=== PATIENT | female | born 1970 | race Caucasian/White ===

== ENCOUNTER → 2017-06-16 | Outpatient (CLI) | payer BC ==
[~2017-06-16] MED LIST: CIPR-225 PO; PHEN-826; THYROID; TRIM100T
--- NOTE | 2017-06-16 13:07 | Diagnostic Imaging Report ---
INDICATION: Routine screening. COMPARISON: 03/21/2016 and 03/20/2015. TECHNIQUE: Screening digital mammography was performed bilaterally with a Computer Aided Detection (CAD) system. FINDINGS: Moderate parenchymal density is identified bilaterally. Small intramammary lymph nodes are identified bilaterally. No spiculated mass or malignant-appearing microcalcifications are seen. The axillae are unremarkable. IMPRESSION: No mammographic features suspicious for malignancy are identified. ACR BI-RADS Category 2: Benign findings. Result letter will be mailed to the patient. Note: At least 10% of breast cancer is not imaged by mammography. Dictated by: Dictated on workstation # [id number]
== END ==
LOC: RAD 10:02
PROVIDERS: ATTEND Nurse Practitioner Family
DX: Z12.31 Encounter for screening mammogram for malignant neoplasm of breast (principal); E05.90 Thyrotoxicosis, unspecified without thyrotoxic crisis or storm
CPT/HCPCS: 77067

== ENCOUNTER 2017-07-21 16:00 | Outpatient (RCR) | payer BC | END 2017-07-31 11:25 | disposition home or self-care (01) | PROVIDERS: ATTEND Orthopaedic Surgery Foot and Ankle Surgery | DX: M21.41 Flat foot [pes planus] (acquired), right foot (principal); Z98.890 Other specified postprocedural states; M67.01 Short Achilles tendon (acquired), right ankle ==

== ENCOUNTER → 2018-07-17 | Outpatient (CLI) | payer BC ==
--- NOTE | 2018-07-17 12:53 | Diagnostic Imaging Report ---
INDICATION: Routine screening. Comparison is made with prior mammograms from 06/16/2017 and 03/21/2016. 2-D and 3-D bilateral screening mammography was performed with a Computer Aided Detection (CAD) system. FINDINGS: Scattered fibroglandular densities are identified bilaterally. Intraparenchymal lymph nodes appear stable bilaterally. No new mass or malignant-appearing microcalcifications are seen. The axillae are unremarkable. IMPRESSION: No mammographic features suspicious for malignancy are identified. ACR BI-RADS Category 2: Benign findings. Result letter will be mailed to the patient. Note: At least 10% of breast cancer is not imaged by mammography. Dictated by: Dictated on workstation # [id number]
== END ==
LOC: RAD 08:50
PROVIDERS: ATTEND Nurse Practitioner Family
DX: Z12.31 Encounter for screening mammogram for malignant neoplasm of breast (principal)
CPT/HCPCS: 77067

== ENCOUNTER → 2019-08-19 | Outpatient (CLI) | payer BC ==
--- NOTE | 2019-08-20 09:07 | Diagnostic Imaging Report ---
INDICATION: Routine screening. Comparison is made with prior mammogram from 07/17/2018 and 06/16/2017. 2-D and 3-D bilateral screening mammography was performed with CAD. Scattered fibroglandular densities are identified bilaterally. The parenchymal pattern is stable. Intraparenchymal lymph nodes in the outer aspects of both breasts appears stable. No new mass or malignant appearing microcalcifications are seen. Axillae are unremarkable. IMPRESSION: BI-RADS Category 2 No mammographic features suspicious for malignancy are identified. ACR BI-RADS Category 2: Benign findings. Result letter will be mailed to the patient. Note: At least 10% of breast cancer is not imaged by mammography. Dictated by: Dictated on workstation # [id number]
== END ==
LOC: RAD 14:20
PROVIDERS: ATTEND Nurse Practitioner Family
DX: Z12.31 Encounter for screening mammogram for malignant neoplasm of breast (principal)
CPT/HCPCS: 77063; 77067

== ENCOUNTER → 2019-09-13 | Outpatient (CLI) | payer BC | LOC: CARD 08:50 | PROVIDERS: ATTEND Internal Medicine Interventional Cardiology | DX: E78.49 Other hyperlipidemia (principal); R00.2 Palpitations; R06.02 Shortness of breath | CPT/HCPCS: 93306 ==

== ENCOUNTER → 2019-09-16 | Outpatient (CLI) | payer BC ==
[~2019-09-16] VITALS: Ht 170 cm; Wt 91.0 kg
[~2019-09-16] MED LIST changes: +CATHETER FLUSH 10 ML SYR IV PRN; +REGADENOSON 0.4 MG/5 ML SYR (LEXISCAN) IV ONE
[2019-09-23 15:03] VITALS: BP 138/90
--- NOTE | 2019-09-23 15:03 | Cardiology Stress Test Report ---
Stress Test Report Type of NM Stress Test: Test Type: LEXISCAN 0.4MG/5ML Date of Procedure/Referring: Date of Procedure: Sep 16, 2019 PCP Tong Perez MD Admitting Physician Ross Roberts DO Indications: Palpitations and shortness of breath. Baseline Heart Rate: 80 Baseline Blood Pressure: Blood Pressure Systolic: 138 Blood Pressure Diastolic: 90 Baseline EKG: Baseline EKG: sinus rhythm Summary & Conclusion: Summary: The patient was brought to the stress lab after informed consent was taken. Stress test was performed according to the Lexiscan protocol. 0.4 mg of IV Lexiscan was given. Low-grade exercise was performed. Baseline EKG showed sinus rhythm at 80 BPM, blood pressure 138/90 mmHg. Maximum heart rate of 86 bpm and blood pressure 142/93 mmHg. Patient did not have any chest pain, arrhythmias or ST segment changes during the stress test. 10.56 mCi of Myoview were given for rest imaging and 31.8 mCi of Myoview given for stress imaging. Transient ischemic dilatation score 1.05, EF 69 percent. Normal wall motion. Normal myocardial perfusion imaging during rest and stress. Conclusion: Pharmacological stress test was negative for ischemia. Normal LV function with no wall motion abnormalities. Normal myocardial perfusion imaging during rest and stress. Tong PEREZ MD Sep 23, 2019 15:03
== END ==
LOC: CARD 07:06
PROVIDERS: ATTEND Internal Medicine Interventional Cardiology
DX: E78.49 Other hyperlipidemia (principal); R06.02 Shortness of breath; R00.2 Palpitations
CPT/HCPCS: 78452; 93017; A9502

== ENCOUNTER 2019-10-26 05:43 | Outpatient (RCR) | payer BC ==
[~2019-10-26] VITALS: Ht 170.2 cm; Wt 90.8 kg
[~2019-10-26 05:43] MED LIST changes: -CATHETER FLUSH 10 ML SYR IV PRN; -REGADENOSON 0.4 MG/5 ML SYR (LEXISCAN) IV ONE
[2019-10-26] MEDS ORDERED: ROSU5TAB PO (12:30)
[2019-10-26] MEDS ORDERED: NF-VITD400 PO (12:36)
[2019-10-26] MEDS ORDERED: MAGN100T5 PO (12:36)
[2019-10-26] MEDS ORDERED: SELE200T11 PO (12:36)
[2019-10-26] MEDS ORDERED: [UNRECOGNIZED DRUG - OTHER] PO (12:37)
== END 2019-10-26 14:15 | disposition home or self-care (01) ==
LOC: PREOP 05:43
PROVIDERS: ATTEND Surgery
DX: Z01.812 Encounter for preprocedural laboratory examination (principal); Z20.828 Contact with and (suspected) exposure to other viral communicable diseases; Z12.11 Encounter for screening for malignant neoplasm of colon
CPT/HCPCS: 87635

== ENCOUNTER 2019-10-29 12:00 | Day surgery (SDC) | payer BC ==
[~2019-10-29] VITALS: Ht 170.2 cm; Wt 90.8 kg
[2019-10-29] VITALS (9 sets, daily range): BP systolic 118–134; BP diastolic 58–80
[~2019-10-29 12:00] MED LIST changes: +LACTATED RINGERS 1,000 ML IV ONE; +LACTATED RINGERS 1,000 ML IV STA; +LIDOCAINE JELLY 2% 6 ML SYRINGE MM PRN; +LORA10TA76 PO; +MAGN100T5 PO; +MIDAZOLAM 2 MG/2 ML (VERSED) VIAL ONE; +NF-VITD400 PO; +PROPOFOL INJECTION 50 ML IV ONE; +ROSU5TAB PO; +SELE200T11 PO; +[UNRECOGNIZED DRUG - OTHER] PO; +proPOfol 200 MG/20 ML (DIPRIVAN) VIAL IV ONE
--- NOTE | 2019-10-29 12:15 | Progress Note-Pre Operative ---
Pre-Operative Progress Note H&P Reviewed The H&P was reviewed, patient examined and no changes noted. Date Seen by Provider: Oct 29, 2019 Time Seen by Provider: 11:00 Date H&P Reviewed: Oct 29, 2019 Time H&P Reviewed: 11:00 Pre-Operative Diagnosis: screening colonoscopy KARLI SCHMITT MD Oct 29, 2019 12:15
--- NOTE | 2019-10-29 12:17 | Progress Note-Post Operative ---
Post-Operative Progess Note Surgeon (s)/Horologist (s) Surgeon KARLI SCHMITT MD Horologist: none Pre-Operative Diagnosis screening colonoscopy Post-Operative Diagnosis mild chronic stage 1 ext and int hemorrhoids. Procedure & Operative Findings Date of Procedure 10/29/19 Procedure Performed/Findings colonoscopy Anesthesia Type mac Estimated Blood Loss Estimated blood loss (mL): minimal Specimens/Packing Specimens Removed none KARLI SCHMITT MD Oct 29, 2019 12:17
--- NOTE | 2019-10-29 12:18 | Discharge Inst-Surgical ---
D/C Lap Instructions-KESHIA Follow Up 10 years Activity as tolerated High Fiber Diet 25g or more per day Avoid Alcohol, Caffeine, Spicy [place] and Acid foods. Drink 64 fluid oz or more of fluids per day. Symptoms to Report: Fever over 101 degree F, Nausea/Vomiting If any problems/questions: Contact your physician or go to Emergency Room KARLI SCHMITT MD Oct 29, 2019 12:18
[2019-10-29] MEDS ORDERED: ACETAMINOPHEN 325 MG TABLET PO PRN (12:30)
[2019-10-29] MEDS ORDERED: morphine INJ 10 MG/ML 1ML (SYR OR VIAL) IVP PRN ×2 (12:30)
[2019-10-29] MEDS ORDERED: HYDROcodone/APAP 5 MG/325 MG (LORTAB) TAB PO PRN (12:30)
[2019-10-29] MEDS ORDERED: ONDANSETRON 4 MG/2 ML (SDV) Z0FRAN IVP PRN (12:30)
[2019-10-29] MEDS ORDERED: ONDANSETRON 4 MG/2 ML (SDV) Z0FRAN ONE (12:31)
--- NOTE | 2019-10-29 17:24 | OPERATIVE REPORT ---
DATE OF SERVICE: 10/29/2019 ATTENDING PRIMARY REGIONAL OFFICE COORDINATOR: Roya Roberts DNP PREOPERATIVE DIAGNOSIS: Screening colonoscopy. POSTOPERATIVE DIAGNOSIS: Mild chronic stage I external and internal hemorrhoids. PROCEDURE: Colonoscopy. SURGEON: Karli Schmitt MD. ANESTHESIA: Monitored anesthesia care. ESTIMATED BLOOD LOSS: Minimal. FINDINGS: Mild chronic stage I external and internal hemorrhoids. DISPOSITION: The patient tolerated the procedure well. INDICATIONS: The patient is a 49-year-old female referred over to us for screening colonoscopy. She has not had a colonoscopy up to this point in her life. She is otherwise doing well. It does not report any major issues with diarrhea nor constipation as well as no red blood per rectum nor any dark tarry stools. She also does not report any family history of colon cancer. DESCRIPTION OF PROCEDURE: The patient was brought to the endoscopy suite, laid in the left lateral decubitus position. After adequate IV pain and sedative medications and monitored anesthesia care, a digital rectal examination was performed, which revealed mild chronic stage I external and internal hemorrhoids, not actively edematous nor inflamed and no bleeding. Normal sphincter tone was felt and there were no palpable masses. The endoscope was then intubated to the anus and rectum gently insufflated. The endoscope was then advanced to the valves of Vick of the rectum with no polyps or any neoplasms identified. We then proceeded through the sigmoid colon where no diverticulosis identified. The endoscope was then advanced through the remainder of the descending, transverse and ascending colon to the cecum. These segments were normal. There were no polyps or any neoplasms identified throughout the colon or rectum. The endoscope was then slowly withdrawn while taking a second look and suctioning of residual air with no additional findings. The patient tolerated the procedure well. We will recommend medical management with a high fiber diet with at least 25 grams of fiber daily as well as significant amounts of water to promote soft stools on a daily basis. If she is asymptomatic, she does not need another colonoscopy for another 10 years. Job ID: [id number] DocumentID: [id number] Dictated Date: 10/29/2019 12:10:39 Staff Developer Date: 10/29/2019 17:24:29 Dictated By: KARLI SCHMITT MD
--- OUTSIDE RECORDS SUMMARY | 2019-10-29 17:28 | XMS REPORT | Referral Summary ---
Author Author [facility] Organization [facility] Address Unknown Phone Unavailable Care Team Providers Care Air Breaker Operator Name Role Phone Sugar Dalton PCP Encounter Date(s): 03/17/17 - 03/17/17 [facility] [address] [place] [address] Discharge Disposition: 01-Home or Self Care Attending Physician: Héctor Potts DO Admitting Physician: Héctor Potts DO Referring Physician: Héctor Potts DO Vital Signs Most recent to 1 oldest [Reference Range]: Temperature Skin 36 degC [36-37 degC] (03/17/17 8:04 AM) Temperature Temporal 36.2 degC Artery [36.3-37.8 *LOW* degC] (03/17/17 9:30 AM) Peripheral Pulse 67 bpm Rate [60-100 bpm] (03/17/17 1:12 PM) Heart Rate Monitored 57 bpm [60-100 bpm] *LOW* (03/17/17 9:25 AM) Respiratory Rate 16 br/min [14-20 br/min] (03/17/17 1:12 PM) Blood Pressure 118/68 mmHg [90-140/60-90 mmHg] (03/17/17 12:05 PM) Mean Arterial 95 mmHg Pressure, Cuff (03/17/17 9:25 AM) SpO2 98 % (03/17/17 1:12 PM) Problem List No data available for this section Allergies, Adverse Reactions, Alerts Substance Reaction Severity Status Nickel Active penicillins Active Medications Communication 1 tablet, Oral, Daily, natural thyroid, 0 Refill(s) Start Date: 03/17/17 Status: Ordered Daily Multivitamins oral tablet tabs, Oral, Daily, 0 Refill(s) Start Date: 03/17/17 Status: Ordered Results Chemistry Most recent to 1 oldest [Reference Range]: Blood Glucose, 101 mg/dL Capillary [70-100 *HI* mg/dL] (03/17/17 5:41 AM) Immunizations No data available for this section Procedures Procedure Date Related Diagnosis Body Site Lengthening Achilles Tendon1 03/17/17 Osteotomy Calcaneus2 03/17/17 Abdominal hysterectomy 1auto-populated from documented surgical case 2auto-populated from documented surgical case Social History Social History Type Response Smoking Status Never (less than 100 in lif etime) entered on: 03/17/17 Assessment and Plan No data available for this section
--- OUTSIDE RECORDS SUMMARY | 2019-10-29 17:28 | XMS REPORT ---
Author Author Shruti Prasad Organization [facility] Address [address] [place] [address] Care Team Providers Care Accounts Payable Payroll Coordinator Name Role Phone NOEL Prasad Unavailable PROBLEMS Type Condition ICD9-CM Code JGL25-LV Code Onset Dates Condition S tatus SNOMED Code Problem Overweight (BMI 25.0-29.9) E66.3 Act murphy [id number] Problem Postmenopausal vaginal bleeding N95.0 Active 22738871 Problem Hyperthyroidism E05.90 Active 3448 6009 Problem Chronic UTI N39.0 Active 24316049 6 Problem Vitamin D deficiency E55.9 Active [id number] ALLERGIES No Information ENCOUNTERS Encounter Location Date Diagnosis [place] [address] [address] Dec, Encounter for immunization Z 23 [place] [address] [id number] 08 Oct, 2017 [place] [address] [address] Sep, [place] [address] [address] Sep, Encounter for well woman exa m with routine gynecological exam Z01.419 ; Screening for STDs (sexually transmitted diseases) Z11.3 ; Overweight (BMI 25.0-29.9) E66.3 and Chronic UTI N39.0 [place] [address] [address] Aug, Hyperthyroidism E05.90 ; Chr onic UTI N39.0 ; Vitamin D deficiency E55.9 ; Postmenopausal vaginal bleeding N95.0 and Overweight (BMI 25.0-29.9) E66.3 [facility] [address] [id number] [address] [place] [address] July, [facility] [address] [facility] [id number] [address] [place] [address] May, [facility] [address] [id number] [address] [place] [address] May, Hyperthyroidism E05.90 [facility] [address] [facility] [id number] [address] [place] [address] May, Hyperthyroidism E05.90 [facility] [address] [facility] [id number] [address] [place] [address] May, Hyperthyroidism E05.90 [facility] [address] [facility] [id number] [address] [place] [address] May, [facility] [address] [facility] [id number] [address] [place] [address] May, [facility] [address] [facility] [id number] [address] [place] [address] May, Hyperthyroidism E05.90 ; Keshia ast cancer screening by mammogram Z12.31 and Vitamin D deficiency E55.9 [facility] [address] [facility] [id number] [address] [place] [address] May, [facility] [address] [facility] [id number] [address] [place] [address] May, Acquired hypothyroidism E03. 9 ; Chronic UTI N39.0 ; Screening cholesterol level Z13.220 and Screening for diabetes mellitus Z13.1 [facility] [address] [facility] [id number] [address] [place] [address] Mar, Acquired hypothyroidism E03. 9 ; Chronic UTI N39.0 ; Screening cholesterol level Z13.220 and Screening for diabetes mellitus Z13.1 [facility] [address] [facility] [id number] [address] [place] [address] Jan, Complicated urinary tract in fection N39.0 [facility] [address] [id number] [address] [place] [address] Jan, Complicated urinary tract in fection N39.0 and Vaginal candidiasis B37.3 [facility] [address] [id number] [address] [place] [address] Dec, Dysuria R30.0 and Acute cyst itis with hematuria N30.01 [facility] [address] [id number] [address] [place] [address] Dec, Dysuria R30.0 [facility] [address] [id number] [address] [place] [address] Dec, [facility] [address] [id number] [address] [place] [address] Dec, Dysuria R30.0 and Acute cyst itis with hematuria N30.01 [facility] [place] [address] [id number] [place] [id number] Nov, Encounter for immunization Z 23 [facility] [address] [facility] [id number] [address] [place] [id number] Sep, Dental examination Z01.20 [facility] [address] [facility] [id number] [address] [place] [address] Aug, Visit for TB skin test Z11.1 [facility] [address] [id number] [address] [place] [id number] Dec, Dental examination Z01.20 [facility] [address] [id number] [address] [place] [address] 10 Nov, 2015 Dysuria R30.0 [facility] [address] [id number] [address] [place] [id number] May, Dental examination Z01.20 [facility] [address] [id number] [address] [place] [id number] 17 Nov, 2014 Dental examination V72.2 [facility] [address] [id number] [address] [place] [id number] 14 Jun, 2014 [facility] [address] [id number] [address] [place] [address], [place] [address] Jun, [facility] [address] [id number] [address] [place] [address], [place] [address] May, [facility] [address] [id number] [address] [place] [address], [place] [address] May, [facility] [address] [id number] [address] [place] [address], [place] [address] Mar, [facility] [address] [id number] [address] [place] [address], [place] [address] Mar, [facility] [address] [id number] [address] [place] [address], [place] [address] Mar, [facility] [address] [id number] [address] [place] [address], [place] [address] Mar, [facility] [address] [id number] [address] [place] [address], [place] [address] Mar, [facility] [address] [id number] [address] [place] [address], [place] [address] Feb, [facility] [address] [id number] [address] [place] [address], [place] [address] Feb, [facility] [address] [id number] [address] [place] [address], [place] [address] Feb, [facility] [address] [id number] [address] [place] [address], [place] [address] Feb, [facility] [address] [id number] [address] [place] [address], [place] [address] Feb, [facility] [address] [id number] [address] [place] [address], [place] [address] Feb, [facility] [address] [id number] [address] [place] [address], [place] [address] Jan, [facility] [address] [id number] [address] [place] [address] Jan, [facility] [address] [id number] [address] [place] [address] Jan, [facility] [address] [id number] [address] [place] [address] Jan, [facility] [address] [id number] [address] [place] [address] Jan, [facility] [address] [id number] [address] [place] [address] Jan, [facility] [address] [id number] [address] [place] [address] Jan, [facility] [address] [id number] [address] [place] [id number] Dec, [facility] [address] [id number] [address] [place] [address] Dec, [facility] [address] [id number] [address] [place] [id number] Dec, [facility] [address] [id number] [address] [place] [address] Dec, [facility] [address] [id number] [address] [place] [id number] Feb, [facility] [address] [id number] [address] [place] [address] Feb, IMMUNIZATIONS No Known Immunizations SOCIAL HISTORY Never Assessed REASON FOR VISIT PLAN OF CARE VITAL SIGNS MEDICATIONS Unknown Medications RESULTS No Results PROCEDURES Procedure Date Ordered Result Body Site ASSAY THYROID STIM HORMONE Apr 28, 2014 VENSTEFANIE, ROUTINE* Apr 28, 2014 INSTRUCTIONS MEDICATIONS ADMINISTERED No Known Medications MEDICAL (GENERAL) HISTORY Type Description Date Medical History back trouble - Medical History hypothryroidism - takes OTC thyrovans Medical History fainting (at the sight of blood) Medical History hives from penicillin Surgical History hysterectomy/cause of bleeding 07/2012 Surgical History section x 2 1999, 2000 Surgical History Right heel/foot 2017 Hospitalization History surgeries
--- OUTSIDE RECORDS SUMMARY | 2019-10-29 17:28 | XMS REPORT ---
Author Author Shruti Doll Doctor Organization [facility] Address Unknown Phone Unavailable Care Team Providers Care Tour Guide Name Role Phone Migration, Doctor Unavailable Unavailable PROBLEMS Type Condition ICD9-CM Code VDO14-DD Code Onset Dates Condition S tatus SNOMED Code Problem Overweight (BMI 25.0-29.9) E66.3 Act murphy 262559227 Problem Postmenopausal vaginal bleeding N95.0 Active 20991877 Problem Hyperthyroidism E05.90 Active 3448 6009 Problem Chronic UTI N39.0 Active 10774513 6 Problem Vitamin D deficiency E55.9 Active 00199373 ALLERGIES No Information ENCOUNTERS Encounter Location Date Diagnosis [place] [address] [address] [facility] [place] [id number] [address] [place] [address] Dec, Acute cystitis without hemat uria N30.00 [place] [address] [address] [facility] [place] [id number] [address] [place] [address] Dec, [place] [address] [address] [facility] [place] [id number] [address] [place] [address] Dec, Encounter for immunization Z 23 [facility] [address] [facility] [place] [id number] [place] [address] Dec, Dysuria R30.0 [place] [address] [address] [facility] [place] [id number] [address] [place] [address] Dec, Encounter for immunization Z 23 [facility] [address] [facility] [place] [id number] [address] [place] [phone] Oct, [place] [address] [address] [facility] [place] [id number] [address] [place] [address] Sep, [place] [address] [address] [facility] [place] [id number] [address] [place] [address] Sep, Encounter for well woman exa m with routine gynecological exam Z01.419 ; Screening for STDs (sexually transmitted diseases) Z11.3 ; Overweight (BMI 25.0-29.9) E66.3 and Chronic UTI N39.0 [place] [address] [address] Aug, Hyperthyroidism E05.90 ; Chr onic UTI N39.0 ; Vitamin D deficiency E55.9 ; Postmenopausal vaginal bleeding N95.0 and Overweight (BMI 25.0-29.9) E66.3 [place] [address] [address] July, [place] [address] [address] May, [place] [address] [address] May, Hyperthyroidism E05.90 [place] [address] [address] May, Hyperthyroidism E05.90 [place] [address] [address] May, Hyperthyroidism E05.90 [place] [address] [address] May, [place] [address] [address] May, [place] [address] [address] May, Hyperthyroidism E05.90 ; Keshia ast cancer screening by mammogram Z12.31 and Vitamin D deficiency E55.9 [place] [address] [address] May, [place] [address] [address] May, Acquired hypothyroidism E03. 9 ; Chronic UTI N39.0 ; Screening cholesterol level Z13.220 and Screening for diabetes mellitus Z13.1 [facility] [address] [facility] [place] [id number] [address] [place] [address] Mar, Acquired hypothyroidism E03. 9 ; Chronic UTI N39.0 ; Screening cholesterol level Z13.220 and Screening for diabetes mellitus Z13.1 [facility] [address] [id number] [address] [place] [address] 17 Jan, 2017 Complicated urinary tract in fection N39.0 [facility] [address] [id number] [address] [place] [address] Jan, Complicated urinary tract in fection N39.0 and Vaginal candidiasis B37.3 [facility] [address] [facility] [place] [id number] [address] [place] [address] Dec, Dysuria R30.0 and Acute cyst itis with hematuria N30.01 [facility] [address] [facility] [place] [id number] [address] [place] [address] Dec, Dysuria R30.0 [facility] [address] [facility] [place] [id number] [address] [place] [address] 09 Dec, 2016 [facility] [address] [facility] [place] [id number] [address] [place] [address] Dec, Dysuria R30.0 and Acute cyst itis with hematuria N30.01 [facility] [address] [facility] [place] [id number] [place] [id number] Nov, Encounter for immunization Z 23 [facility] [address] [id number] [address] [place] [id number] Sep, Dental examination Z01.20 [facility] [address] [facility] [place] [id number] [address] [place] [address] Aug, Visit for TB skin test Z11.1 [facility] [address] [id number] [address] [place] [address] [id number] 24 Dec, 2015 Dental examination Z01.20 [facility] [address] [id number] [address] [place] [address] 10 Nov, 2015 Dysuria R30.0 [facility] [address] [id number] [address] [place] [address] [id number] 25 May, 2015 Dental examination Z01.20 [facility] [address] [id number] [address] [place] [address] [id number] 17 Nov, 2014 Dental examination V72.2 [facility] [address] [id number] [address] [place] [address] 14 Jun, 2014 [facility] [address] [id number] [address] [place] [address] Jun, [facility] [address] [id number] [address] [place] [address] May, [facility] [address] [id number] [address] [place] [address] May, [facility] [address] [id number] [address] [place] [address] Mar, [facility] [address] [id number] [address] [place] [address] Mar, [facility] [address] [id number] [address] [place] [address] Mar, [facility] [address] [id number] [address] [place] [address] Mar, [facility] [address] [id number] [address] [place] [address] Mar, [facility] [address] [id number] [address] [place] [address] Feb, [facility] [address] [id number] [address] [place] [address] Feb, [facility] [address] [id number] [address] [place] [address] Feb, [facility] [address] [id number] [address] [place] [address] Feb, [facility] [address] [id number] [address] [place] [address], [place] [address] Feb, [facility] [address] [id number] [address] [place] [address] Feb, [facility] [address] [id number] [address] [place] [id number] Jan, [facility] [address] [id number] [address] [place] [address] Jan, [facility] [address] [id number] [address] [place] [address] Jan, [facility] [address] [id number] [address] [place] [address] Jan, [facility] [address] [id number] [address] [place] [address] Jan, [facility] [address] [id number] [address] [place] [address] Jan, [facility] [address] [id number] [address] [place] [address] Jan, [facility] [address] [id number] [address] [place] [address] Dec, [facility] [address] [id number] [address] [place] [phone] Dec, [facility] [address] [id number] [address] [place] [address] Dec, [facility] [address] [id number] [address] [place] [address] Dec, [facility] [address] [id number] [address] [place] [address] Feb, [facility] [address] [id number] [address] [place] [address] Feb, IMMUNIZATIONS No Known Immunizations SOCIAL HISTORY Never Assessed REASON FOR VISIT PLAN OF CARE VITAL SIGNS MEDICATIONS Unknown Medications RESULTS No Results PROCEDURES No Known procedures INSTRUCTIONS MEDICATIONS ADMINISTERED No Known Medications MEDICAL [...]
--- OUTSIDE RECORDS SUMMARY | 2019-10-29 17:28 | XMS REPORT ---
Author Author Shruti Prasad Organization [facility] Address [address] [place] [address] Care Team Providers Care [employer] Name Role Phone NOEL Prasad Unavailable PROBLEMS Type Condition ICD9-CM Code CKV41-IL Code Onset Dates Condition S tatus SNOMED Code Problem Overweight (BMI 25.0-29.9) E66.3 Act murphy [id number] Problem Postmenopausal vaginal bleeding N95.0 Active 99484371 Problem Hyperthyroidism E05.90 Active 3448 6009 Problem Chronic UTI N39.0 Active 87329500 6 Problem Vitamin D deficiency E55.9 Active 05020748 ALLERGIES No Information ENCOUNTERS Encounter Location Date Diagnosis [place] [address] [address] Dec, Encounter for immunization Z 23 [place] [address] [address] Oct, [place] [address] [address] Sep, [place] [address] [address] Sep, Encounter for well woman exa m with routine gynecological exam Z01.419 ; Screening for STDs (sexually transmitted diseases) Z11.3 ; Overweight (BMI 25.0-29.9) E66.3 and Chronic UTI N39.0 [place] [address] [address] Aug, Hyperthyroidism E05.90 ; Chr onic UTI N39.0 ; Vitamin D deficiency E55.9 ; Postmenopausal vaginal bleeding N95.0 and Overweight (BMI 25.0-29.9) E66.3 [facility] [address] [id number] [address] [place] [address] July, [facility] [address] [facility] [id number] [address] [place] [address] May, [facility] [address] [id number] [address] [place] [address] May, Hyperthyroidism E05.90 [facility] [address] [facility] [id number] [address] [place] [address] May, Hyperthyroidism E05.90 [facility] [address] [facility] [id number] [address] [place] [address] May, Hyperthyroidism E05.90 [facility] [address] [facility] [id number] [address] [place] [address] May, [facility] [address] [facility] [id number] [address] [place] [address] May, [facility] [address] [facility] [id number] [address] [place] [address] May, Hyperthyroidism E05.90 ; Keshia ast cancer screening by mammogram Z12.31 and Vitamin D deficiency E55.9 [facility] [address] [facility] [id number] [address] [place] [address] May, [facility] [address] [facility] [id number] [address] [place] [address] May, Acquired hypothyroidism E03. 9 ; Chronic UTI N39.0 ; Screening cholesterol level Z13.220 and Screening for diabetes mellitus Z13.1 [facility] [address] [facility] [id number] [address] [place] [address] Mar, Acquired hypothyroidism E03. 9 ; Chronic UTI N39.0 ; Screening cholesterol level Z13.220 and Screening for diabetes mellitus Z13.1 [facility] [address] [facility] [id number] [address] [place] [phone] Jan, Complicated urinary tract in fection N39.0 [facility] [address] [id number] [address] [place] [address] Jan, Complicated urinary tract in fection N39.0 and Vaginal candidiasis B37.3 [facility] [address] [id number] [address] [place] [address] Dec, Dysuria R30.0 and Acute cyst itis with hematuria N30.01 [facility] [address] [id number] [address] [place] [address] Dec, Dysuria R30.0 [facility] [address] [id number] [address] [place] [address] Dec, [facility] [address] [id number] [address] [place] [address] Dec, Dysuria R30.0 and Acute cyst itis with hematuria N30.01 [facility] [address] [id number] [place] [address] [id number] Nov, Encounter for immunization Z 23 [facility] [address] [facility] [id number] [address] [place] [address] [id number] Sep, Dental examination Z01.20 [facility] [address] [facility] [id number] [address] [place] [address] Aug, Visit for TB skin test Z11.1 [facility] [address] [id number] [address] [place] [address] [id number] Dec, Dental examination Z01.20 [facility] [address] [id number] [address] [place] [address] 10 Nov, 2015 Dysuria R30.0 [facility] [address] [id number] [address] [place] [address] [id number] May, Dental examination Z01.20 [facility] [address] [id number] [address] [place] [address] [id number] 17 Nov, 2014 Dental examination V72.2 [facility] [address] [id number] [address] [place] [phone] 14 Jun, 2014 [facility] [address] [id number] [address] [place] [address], [place] [address] Jun, [facility] [address] [id number] [address] [place] [address], [place] [address] May, [facility] [address] [id number] [address] [place] [address], [place] [address] May, [facility] [address] [id number] [address] [place] [address], [place] [address] Mar, [facility] [address] [id number] [address] [place] [address], [place] [address] Mar, [facility] [address] [id number] [address] [place] [address], [place] [address] Mar, [facility] [address] [id number] [address] [place] [address], [place] [address] Mar, [facility] [address] [id number] [address] [place] [address], [place] [address] Mar, [facility] [address] [id number] [address] [place] [address], [place] [address] Feb, [facility] [address] [id number] [address] [place] [address], [place] [address] Feb, [facility] [address] [id number] [address] [place] [address], [place] [address] Feb, [facility] [address] [id number] [address] [place] [address], [place] [address] Feb, [facility] [address] [id number] [address] [place] [address], [place] [address] Feb, [facility] [address] [id number] [address] [place] [address], [place] [address] Feb, [facility] [address] [id number] [address] [place] [address], [place] [address] Jan, [facility] [address] [id number] [address] [place] [id number] Jan, [facility] [address] [id number] [address] [place] [phone] Jan, [facility] [address] [id number] [address] [place] [phone] Jan, [facility] [address] [id number] [address] [place] [address] Jan, [facility] [address] [id number] [address] [place] [id number] Jan, [facility] [address] [id number] [address] [place] [id number] Jan, [facility] [address] [id number] [address] [place] [address] Dec, [facility] [address] [id number] [address] [place] [address] Dec, [facility] [address] [id number] [address] [place] [address] Dec, [facility] [address] [id number] [address] [place] [address] Dec, [facility] [address] [id number] [address] [place] [id number] Feb, [facility] [address] [id number] [address] [place] [id number] Feb, IMMUNIZATIONS No Known Immunizations SOCIAL HISTORY [...]
--- OUTSIDE RECORDS SUMMARY | 2019-10-29 17:28 | XMS REPORT ---
Author Author Shruti Flores Organization [facility] Address [address] [place] [address] Care Team Providers Care Disk Recordist Name Role Phone BHAVIK Flores Unavailable PROBLEMS Type Condition ICD9-CM Code [id number] Code Onset Dates Condition S tatus SNOMED Code Problem Overweight (BMI 25.0-29.9) E66.3 Act murphy 625560330 Problem Postmenopausal vaginal bleeding N95.0 Active 05354108 Problem Hyperthyroidism E05.90 Active 3448 6009 Problem Chronic UTI N39.0 Active 92217911 6 Problem Vitamin D deficiency E55.9 Active [id number] ALLERGIES No Information ENCOUNTERS Encounter Location Date Diagnosis [place] [address] [address] Dec, Encounter for immunization Z 23 [place] [address] [address] Oct, [place] [address] [address] Sep, [place] [address] [address] Sep, Encounter for well woman exa m with routine gynecological exam Z01.419 ; Screening for STDs (sexually transmitted diseases) Z11.3 ; Overweight (BMI 25.0-29.9) E66.3 and Chronic UTI N39.0 [place] [address] [address] Aug, Hyperthyroidism E05.90 ; Chr onic UTI N39.0 ; Vitamin D deficiency E55.9 ; Postmenopausal vaginal bleeding N95.0 and Overweight (BMI 25.0-29.9) E66.3 [place] [address] [facility] [id number] [address] [place] [address] July, [facility] [address] [facility] [id number] [address] [place] [address] May, [facility] [address] [facility] [id number] [address] [place] [address] May, Hyperthyroidism E05.90 [facility] [address] [facility] [id number] [address] [place] [address] May, Hyperthyroidism E05.90 [facility] [address] [facility] [id number] [address] [place] [address] May, Hyperthyroidism E05.90 [facility] [address] [facility] [id number] [address] [place] [address] May, [facility] [address] [facility] [id number] [address] [place] [address] May, [facility] [address] [facility] [id number] [address] [place] [address] May, Hyperthyroidism E05.90 ; Keshia ast cancer screening by mammogram Z12.31 and Vitamin D deficiency E55.9 [facility] [address] [facility] [id number] [address] [place] [address] May, [facility] [address] [facility] [id number] [address] [place] [address] May, Acquired hypothyroidism E03. 9 ; Chronic UTI N39.0 ; Screening cholesterol level Z13.220 and Screening for diabetes mellitus Z13.1 [facility] [address] [facility] [id number] [address] [place] [address] Mar, Acquired hypothyroidism E03. 9 ; Chronic UTI N39.0 ; Screening cholesterol level Z13.220 and Screening for diabetes mellitus Z13.1 [facility] [address] [facility] [id number] [address] [place] [address] Jan, Complicated urinary tract in fection N39.0 [facility] [address] [id number] [address] [place] [address] Jan, Complicated urinary tract in fection N39.0 and Vaginal candidiasis B37.3 [facility] [address] [id number] [address] [place] [address] Dec, Dysuria R30.0 and Acute cyst itis with hematuria N30.01 [facility] [address] [id number] [address] [place] [address] Dec, Dysuria R30.0 [facility] [address] [id number] [address] [place] [address] Dec, [facility] [address] [facility] [id number] [address] [place] [address] Dec, Dysuria R30.0 and Acute cyst itis with hematuria N30.01 [facility] [address] [id number] [place] [id number] 27 Nov, 2016 Encounter for immunization Z 23 [facility] [address] [facility] [id number] [address] [place] [id number] Sep, Dental examination Z01.20 [facility] [address] [facility] [id number] [address] [place] [address] Aug, Visit for TB skin test Z11.1 [facility] [address] [id number] [address] [place] [id number] Dec, Dental examination Z01.20 [facility] [address] [id number] [address] [place] [address] 10 Nov, 2015 Dysuria R30.0 [facility] [address] [id number] [address] [place] [id number] May, Dental examination Z01.20 [facility] [address] [id number] [address] [place] [id number] 17 Nov, 2014 Dental examination V72.2 [facility] [address] [id number] [address] [place] [address] 14 Jun, 2014 [facility] [address] [id number] [address] [place] [address], [place] [address] Jun, [facility] [address] [id number] [address] [place] [address], [place] [address] May, [facility] [address] [id number] [address] [place] [address], [place] [address] May, [facility] [address] [id number] [address] [place] [address], [place] [address] Mar, [facility] [address] [id number] [address] [place] [address], [place] [address] Mar, [facility] [address] [id number] [address] [place] [address], [place] [address] Mar, [facility] [address] [id number] [address] [place] [address], [place] [address] Mar, [facility] [address] [id number] [address] [place] [address], [place] [address] Mar, [facility] [address] [id number] [address] [place] [address], [place] [address] Feb, [facility] [address] [id number] [address] [place] [address], [place] [address] Feb, [facility] [address] [id number] [address] [place] [address], [place] [address] Feb, [facility] [address] [id number] [address] [place] [address], [place] [address] Feb, [facility] [address] [id number] [address] [place] [address], [place] [address] Feb, [facility] [address] [id number] [address] [place] [address], [place] [address] Feb, [facility] [address] [id number] [address] [place] [address], [place] [address] Jan, [facility] [address] [id number] [address] [place] [address] Jan, [facility] [address] [id number] [address] [place] [address] Jan, [facility] [address] [id number] [address] [place] [address] Jan, [facility] [address] [id number] [address] [place] [address] Jan, [facility] [address] [id number] [address] [place] [address] Jan, [facility] [address] [id number] [address] [place] [address] Jan, [facility] [address] [id number] [address] [place] [address] Dec, [facility] [address] [id number] [address] [place] [address] Dec, [facility] [address] [id number] [address] [place] [address] Dec, [facility] [address] [id number] [address] [place] [address] Dec, [facility] [address] [id number] [address] [place] [address] Feb, [facility] [address] [id number] [address] [place] [address] Feb, IMMUNIZATIONS No Known Immunizations SOCIAL HISTORY Never Assessed REASON FOR VISIT PLAN OF CARE VITAL SIGNS Height 67 in 2014-02-21 Weight 212 lbs 2014-02-21 Temperature 98.5 degrees Fahrenheit 2014-02-21 Blood pressure systolic 122 mmHg 2014-02-21 Blood pressure diastolic 86 mmHg 2014-02-21 MEDICATIONS Unknown Medications RESULTS No Results PROCEDURES Procedure Date Ordered Result Body Site URINE CULTURE/COLONY COUNT Feb 21, 2014 URINALYSIS, AUTO, W/O SCOPE Feb 21, 2014 INSTRUCTIONS MEDICATIONS ADMINISTERED No Known Medications [...]
--- OUTSIDE RECORDS SUMMARY | 2019-10-29 17:28 | XMS REPORT ---
Author Author Shruti Rojas Organization [facility] Address [address] [place], [place] [id number] Care Team Providers Care Presentation Designer Name Role Phone Abdirashid Rojas PCP Allergies and Adverse Reactions Name Reaction Notes PENICILLINS Plan of Treatment Not available. Medications Active Name Start Date Estimated Completion Date SIG Co mments Bactrim 400-80 mg oral tablet Problem List Not available. Vital Signs Date Time BP-Sys(mm[Hg] BP-Laura(mm[Hg]) HR(bpm) RR(rpm) Temp WT HT HC BMI BSA BMI Percentile O2 Sat(%) 04/16/2016 8:12:00 AM 120 mmHg 80 mmHg 67 bpm 16 rpm 214 lbs 67 in 33.52 kg/m2 2.14 m2 98 % 04/08/2016 5:09:00 PM 132 mmHg 76 mmHg 71 bpm 18 rpm 97.7 F 214.125 lbs 67 i n 33.5364 kg/m 2.1427 m 97 % Social History Not available. History of Procedures Not available. Results Summary Not available. History Of Immunizations Not available. History of Past Illness Name Date of Onset Comments Chronic UTI Closed head injury, initial encounter Apr 08 2016 5:10PM Concussion, without loss of consciousness, initial enc ounter Apr 08 2016 5:10PM Unspecified injury of head, subsequent encounter Apr 16 2016 8:14AM Concussion without loss of consciousness, subsequent e ncounter Apr 16 2016 8:14AM Acute nonintractable headache, unspecified headache type Apr 16 2016 8:14AM Decreased hearing of right ear Apr 16 2016 8:14AM Payers Insurance Name Company Name Plan Name Plan Number Policy Number Sami cy Group Number Start Date [facility] [id number] N/A History of Encounters Visit Date Visit Type Provider 04/16/2016 Office visit Abdirashid Rojas APR N 04/08/2016 Office visit Abdirashid Rojas APR N
--- OUTSIDE RECORDS SUMMARY | 2019-10-29 17:28 | XMS REPORT ---
Author Author Shruti Flores Organization [facility] Address [address] [place] [address] Care Team Providers Care Sonography Technologist Name Role Phone BHAVIK Flores Unavailable PROBLEMS Type Condition ICD9-CM Code EBE32-KN Code Onset Dates Condition S tatus SNOMED Code Problem Overweight (BMI 25.0-29.9) E66.3 Act murphy 839323231 Problem Postmenopausal vaginal bleeding N95.0 Active 35103575 Problem Hyperthyroidism E05.90 Active 3448 6009 Problem Chronic UTI N39.0 Active 17334313 6 Problem Vitamin D deficiency E55.9 Active 58116816 ALLERGIES No Information ENCOUNTERS Encounter Location Date Diagnosis [place] [address] [address] Dec, Encounter for immunization Z 23 [place] [address] [address] Oct, [place] [address] [address] Sep, [place] [address] [address] Sep, Encounter for well woman exa m with routine gynecological exam Z01.419 ; Screening for STDs (sexually transmitted diseases) Z11.3 ; Overweight (BMI 25.0-29.9) E66.3 and Chronic UTI N39.0 [place] [address] [address] Aug, Hyperthyroidism E05.90 ; Chr onic UTI N39.0 ; Vitamin D deficiency E55.9 ; Postmenopausal vaginal bleeding N95.0 and Overweight (BMI 25.0-29.9) E66.3 [place] [address] [facility] [id number] [address] [place] [phone] July, [facility] [address] [facility] [id number] [address] [place] [address] May, [facility] [address] [facility] [id number] [address] [place] [address] May, Hyperthyroidism E05.90 [facility] [address] [facility] [id number] [address] [place] [address] May, Hyperthyroidism E05.90 [facility] [address] [facility] [id number] [address] [place] [address] May, Hyperthyroidism E05.90 [facility] [address] [facility] [id number] [address] [place] [address] May, [facility] [address] [facility] [id number] [address] [place] [phone] May, [facility] [address] [facility] [id number] [address] [place] [phone] May, Hyperthyroidism E05.90 ; Keshia ast cancer screening by mammogram Z12.31 and Vitamin D deficiency E55.9 [facility] [address] [facility] [id number] [address] [place] [phone] May, [facility] [address] [facility] [id number] [address] [place] [address] May, Acquired hypothyroidism E03. 9 ; Chronic UTI N39.0 ; Screening cholesterol level Z13.220 and Screening for diabetes mellitus Z13.1 [facility] [address] [facility] [id number] [address] [place] [address] Mar, Acquired hypothyroidism E03. 9 ; Chronic UTI N39.0 ; Screening cholesterol level Z13.220 and Screening for diabetes mellitus Z13.1 [facility] [address] [facility] [id number] [address] [place] [phone] Jan, Complicated urinary tract in fection N39.0 [facility] [address] [id number] [address] [place] [phone] Jan, Complicated urinary tract in fection N39.0 and Vaginal candidiasis B37.3 [facility] [address] [id number] [address] [place] [address] Dec, Dysuria R30.0 and Acute cyst itis with hematuria N30.01 [facility] [address] [id number] [address] [place] [phone] Dec, Dysuria R30.0 [facility] [address] [id number] [address] [place] [phone] Dec, [facility] [address] [facility] [id number] [address] [place] [address] Dec, Dysuria R30.0 and Acute cyst itis with hematuria N30.01 [facility] [address] [id number] [place] [address] [id number] 27 Nov, 2016 Encounter for immunization Z 23 [facility] [address] [facility] [id number] [address] [place] [id number] Sep, Dental examination Z01.20 [facility] [address] [facility] [id number] [address] [place] [phone] Aug, Visit for TB skin test Z11.1 [facility] [address] [id number] [address] [place] [id number] Dec, Dental examination Z01.20 [facility] [address] [id number] [address] [place] [phone] 10 Nov, 2015 Dysuria R30.0 [facility] [address] [id number] [address] [place] [id number] May, Dental examination Z01.20 [facility] [address] [id number] [address] [place] [address] [id number] 17 Nov, 2014 Dental examination V72.2 [facility] [address] [id number] [address] [place] [phone] 14 Jun, 2014 [facility] [address] [id number] [address] [place] [address], [place] [address] Jun, [facility] [address] [id number] [address] [place] [address], [place] [address] May, [facility] [address] [id number] [address] [place] [address], [place] [address] May, [facility] [address] [id number] [address] [place] [address], [place] [address] Mar, [facility] [address] [id number] [address] [place] [address], [place] [address] Mar, [facility] [address] [id number] [address] [place] [address], [place] [address] Mar, [facility] [address] [id number] [address] [place] [address], [place] [address] Mar, [facility] [address] [id number] [address] [place] [address], [place] [address] Mar, [facility] [address] [id number] [address] [place] [address], [place] [address] Feb, [facility] [address] [id number] [address] [place] [address], [place] [address] Feb, [facility] [address] [id number] [address] [place] [address], [place] [address] Feb, [facility] [address] [id number] [address] [place] [address], [place] [address] Feb, [facility] [address] [id number] [address] [place] [address], [place] [address] Feb, [facility] [address] [id number] [address] [place] [address], [place] [address] Feb, [facility] [address] [id number] [address] [place] [address], [place] [address] Jan, [facility] [address] [id number] [address] [place] [phone] Jan, [facility] [address] [id number] [address] [place] [phone] Jan, [facility] [address] [id number] [address] [place] [phone] Jan, [facility] [address] [id number] [address] [place] [phone] Jan, [facility] [address] [id number] [address] [place] [phone] Jan, [facility] [address] [id number] [address] [place] [phone] Jan, [facility] [address] [id number] [address] [place] [phone] Dec, [facility] [address] [id number] [address] [place] [phone] Dec, [facility] [address] [id number] [address] [place] [phone] Dec, [facility] [address] [id number] [address] [place] [phone] Dec, [facility] [address] [id number] [address] [place] [phone] Feb, [facility] [address] [id number] [address] [place] [phone] Feb, IMMUNIZATIONS No Known Immunizations SOCIAL HISTORY Never Assessed REASON FOR VISIT PLAN OF CARE VITAL SIGNS Height 67 in 2014-03-14 Weight 223.5 lbs 2014-03-14 Temperature 98.4 degrees Fahrenheit 2014-03-14 Heart Rate 80 bpm 2014-03-14 Respiratory Rate 18 2014-03-14 Blood pressure systolic 122 mmHg 2014-03-14 Blood pressure diastolic 74 mmHg 2014-03-14 MEDICATIONS Unknown Medications RESULTS No Results PROCEDURES Procedure Date Ordered Result Body Site URINE CULTURE/COLONY COUNT Mar 14, 2014 URINALYSIS, AUTO, W/O SCOPE Mar 14, 2014 INSTRUCTIONS MEDICATIONS ADMINISTERED No Known Medications [...]
--- OUTSIDE RECORDS SUMMARY | 2019-10-29 17:28 | XMS REPORT ---
Author Author [employer]. mechanism assembler [facility] [place] Address [address] [address] Care Team Providers Care Blood Bank Laboratory Professional Name Role Phone Abdirashid Rojas Unavailable [facility] Unavailable [phone] JOSE FRAGOSO Unavailable Unavailable MARCEL DENNIS Unavailable STEPHANIE REEVES Unavailable Unavailable Sugar Dalton S Unavailable BELA YEPEZ Unavailable CORBIN, MATTHIEU Unavailable CORBIN, MATTHIEU Unavailable CORBIN, MATTHIEU Unavailable CORBIN, MATTHIEU Unavailable CORBIN, MATTHIEU Unavailable CORBIN, MATTHIEU Unavailable CORBIN, MATTHIEU Unavailable CORBIN, MATTHIEU Unavailable CORBIN, MATTHIEU Unavailable EDNA MARIA ELENA Unavailable CORBIN, MATTHIEU Unavailable CORBIN, MATTHIEU Unavailable CORBIN, MATTHIEU Unavailable CORBIN, MATTHIEU Unavailable ARMINDA KRAUS APRN Unavailable Unavailable CORBIN, MATTHIEU Unavailable CORBIN, MATTHIEU Unavailable CORBIN, MATTHIEU Unavailable KHUSHBU RAMOS Unavailable Migration, Doctor Unavailable Unavailable TERRY RON DNP Unavailable Unavailabl e Migration, Doctor Unavailable Unavailable Abdirashid Rojas Unavailable Unavailable Abdirashid Rojas Unavailable Unavailable Abdirashid Rojas Unavailable Unavailable Sugar Dalton Unavailable Unavailable zzSANCHEZ, NOEL Unavailable PALOMO CAMPBELL Unavailable Migration, Doctor Unavailable Unavailable Migration, Doctor Unavailable Unavailable zzSANCHEZ, NOEL Unavailable zzHEIMAN, BHAVIK Unavailable zzSANCHEZ, NOEL Unavailable zzSANCHEZ, NOEL Unavailable zzSANCHEZ, NOEL Unavailable zzHEIMAN, BHAVIK Unavailable ARIADNE TUCKER, TERRY Franco Unavailable Unavailable MARCIA CARTAGENA, YESSICA Zavaleta Unavailable Unavailable ANIL CARTAGENA, DESTIN RETANA Unavailable Unavailable LUCHO SLAINAS, BELA R Unavailable Unavailable EFRA JI, ARMINDA Hopson Unavailable Unavailable GURPREET WEINER, KRISTEN M Unavailable Unavailable JAZ CARTAGENA, MICHELLE Aldrich Unavailable Unavailable SHAQUILLE JI, MATTHIEU Sanches Unavailable Unavailable Migration, Doctor Unavailable Unavailable KARLI SCHMITT MD Unavailable Unavailable Unavailable Unavailable Unavailable Unavailable Unavailable Unavailable Unavailable Unavailable Unavailable Unavailable Unavailable Unavailable Unavailable Unavailable Allergies The data below is from unstructured sourcesNo allergy information available.No allergy information available.No allergy information available. No Information No Information No Information No Information No Information No Information No Information No Information No Information No Information No Information No Information No Information No Information No Information No Information No Information No Information No Information No Information No Information No Information No Information No Information No Information No Information No Information No Information Encounters Encounter Date Encounter Type Encounter Diagnosis Care Provider Facility Start: Patient encounter KARLI SCHMITT MD [facility] Via risti 10-29-2019 [facility] End: 10-29-2019 Start: Patient encounter KARLI SCHMITT MD [facility] Via risti 10-26-2019 [facility] End: 10-26-2019 Start: Patient encounter DESTIN RETANA [facility] Via risti 09-16-2019 procedure ANIL CARTAGENA [facility] Start: Patient encounter DESTIN RETANA [facility] Via risti 09-13-2019 procedure ANIL CARTAGENA [facility] Start: Patient encounter TERRY RON [facility] Vi a Monique 08-19-[address] [facility] Start: Encounter by computer Acute cystitis LILO NICHOLS [facility] 01-05-2019 link without hematuria Start: [facility] 01-04-2019 immunization Start: Telephone encounter LILO SHEN [facility] 01-04-2019 Start: Patient encounter NA NA [facility] 01-01-2019 procedure [facility] ([id number]) Start: OUTREACH [facility] Dysuria LILO NICHOLS OUTRE H [facility] 01-01-2019 [facility] Start: Patient encounter TERRY ARIADNE Not Avai lable ([id number]) 07-17-2018 procedure Start: Patient encounter TERRY Salvador RON [facility] Vi a Monique 07-17-[address] [facility] Start: [facility] [place] En[facility]HUSHBU RAMOS [facility] 01-20-2018 immunization End: 01-20-2018 Start: Telephone encounter MATTHIEU SHAQUILLE [facility] 11-05-2017 End: 11-05-2017 Start: Patient encounter MATTHIEU SHAQUILLE [facility] 09-15-2017 procedure [facility] ([id number]) Start: Patient encounter BELA YEPEZ DO [facility] 07-21-2017 [facility] End: 07-31-2017 Start: Patient encounter BELA YEPEZ DO Not Availa ble ([id number]) 07-15-2017 procedure Start: Patient encounter BELA YEPEZ DO Not Availa ble ([id number]) 07-10-2017 procedure Start: Patient encounter BELA YEPEZ DO Not Availa ble ([id number]) 07-07-2017 procedure Start: Patient encounter 06-16-2017 procedure Start: Patient encounter MATTHIEU Verónica CORBIN [employer] 06-16-2017 [facility] Start: Patient encounter NA NA [facility] 05-27-2017 procedure [facility] ([id number]) Start: Patient encounter 05-19-2017 procedure Start: Patient encounter 05-01-2017 procedure Start: Patient encounter TRANSITION PCP [facility] 04-29-2017 procedure [facility] ([id number]) Start: Patient encounter 03-17-2017 procedure Start: Patient encounter ARMINDA KRAUS Not Availab le ([id number]) 03-21-2016 procedure Start: Patient encounter ARMINDA KRAUS GARRISON [facility] 03-21-2016 procedure [facility] Start: Emergency department YESSICA KENNEDY MD [facility] 12-10-2015 patient visit [facility] End: 12-10-2015 Start: Patient encounter KRISTEN Fortune [facility] 03-20-2015 procedure [facility] Start: Patient encounter MICHELLE SEBASTIAN MD Not Availab le ([id number]) 11-29-2014 procedure Start: Patient encounter MICHELLE SEBASTIAN MD [facility] Via C hristi 11-29-2014 procedure [facility] Start: Patient encounter NOEL SANTILLAN Not Availab le ([id number]) 01-21-2014 procedure Patient encounter Abdirashid Rojas Not Available (0000 0) procedure Encounter for KARLI SCHMITT MD [id number][facility] examination Medical Equipment No Information Goals No Information Immunizations Immunizatio Immunization Notes Care Provider Facility n Date 01-04-2019 influenza, seasonal, NA [facility] ([id number]) 01-20-2018 influenza, seasonal, KHUSHBU RAMOS [facility] Other Phone: [facility] [place] ([id number]) 01-20-2018 influenza, injectable, [facility] quadrivalent, Other Phone: [facility] preservative free [place] ([id number]) 01-20-2018 SINGLE IMMUNIZATION Critical access hospital ADMIN ; Translations: Other Phone: [facility] [FLULAVAL QUAD 0.5ML [place] ([id number]) (6 MO ] Interventions No Information Medications Medication Drug Dates Sig Sig (Original) Class(es) (Normalized) Acetaminophen / Opioid Start: oxyCODONE Agonist 03-17-2017 (1 source) End: 03-17-2017 HYDROmorphone Opioid Start: (2 sources) Agonist 03-17-2017 End: 03-17-2017 Lactated Ringers Start: Injection(Lactated 03-17-2017 Ringers Injection 1,000 mL) End: (1 source) 03-17-2017 Ondansetron Serotonin- Start: (1 source) 3 Receptor 03-17-2017 Antagonist End: 03-17-2017 Payers No Information Plan of Treatment The data below is from unstructured sources Discharge Date 12/10/15 2:35pm Disposition 01 HOME, SELF-CARE Condition at Discharge Stable/Unchan ged Instructions/Education Provided Urin amaris Tract Infection in Women (ED) Prescriptions See Medication Section [facility]errals [facility] Primary Care Physician Additional Instructions/Education Al l discharge instructions reviewed with patient and/or family. Voiced understanding. Fill prescription and begin Cipro today. Expect a call from me tomorrow relative to urine culture. Dr. Sebastian is out of town until 12/13 make an appointment soon Prescriptions See Medication Section Activity Details Follow Up 1 Year, prn Reason:routine Problems Active Problems Problem Problem Date Last Documented Episodic/Chr Provider Classificati Recorded Date onic on Abdominal Lower abdominal pain, unspecified 09-13-2019 Episo dic YESSICA pain MARCIA CARTAGENA (6 sources) Acquired Flat foot [pes planus] (acquired), 09-13-2019 Episodic foot right foot deformities (12 sources) Cardiac Palpitations 10-06-2019 Episodic WEIR dysrhythmias ANIL CARTAGENA (13 sources) Disorders of Other hyperlipidemia 10-06-2019 Chronic MUHA MMAD lipid ANIL CARTAGENA metabolism (13 sources) Other Short Achilles tendon (acquired), 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 (12 sources) Other lower Shortness of breath 10-06-2019 Episodic MUHAMM AD respiratory ANIL CARTAGENA disease (13 sources) Residual Other specified postprocedural 09-13-2019 Episodic BELA YEPEZ codes; states DO unclassified (11 sources) Residual Family history of malignant Episodic NOEL codes; neoplasm of breast TYRELL unclassified (1 source) Past or Other Problems Problem Problem Date Last Documented Episodic/Chr Provider Classificati Recorded Date onic on Allergic Allergy status to penicillin ; Episo dic reactions Translations: [Other nonmed icinal (1 source) substance allergy status] Procedures Date Procedure Procedure Detail Performing Cl inician Start: Cul bact xcpt MATTHIEU BAUTISTAY 10-24-2017 urine blood/stool Other Phone: aerobic isol Start: Handlg&/or convey MATTHIEU OREGON 10-24-2017 of spec for tr Other Phone: office to lab Start: Iaadiadoo MATTHIEU [place] 10-24-2017 trichomonas Other Phone: vaginalis Start: Infectious agent MATTHIEU [place] 10-24-2017 enzymatic actv Other Phone: oth/thn virus Start: No Charge MATTHIEU [place] 10-24-2017 Other Start: Assay of thyroid NOEL jenniferzNCHEZ 04-28-2014 stimulating Other Phone: hormone tsh Start: Collection venous NOEL albaroSANCHEZ 04-28-2014 blood venipuncture Other Start: Culture bacterial BHAVIK Flores 03-14-2014 quanttative colony Other count urine Start: Urnls dip BHAVIK Flores 03-14-2014 stick/tablet rgnt Other Phone: auto w/o microscopy Start: Urnls dip Doctor Migration 02-28-2014 stick/tablet rgnt auto w/o microscopy Start: Assay of free NOEL jenniferzSANCHEZ 02-04-2014 thyroxine Other Phone: Start: Assay of thyroid NOEL DianaNCHEZ 02-04-2014 stimulating Other Phone: hormone tsh Start: Assay of NOEL jenniferzSANCHEZ 02-04-2014 triiodothyronine Other Phone: t3 total tt3 Start: Collection venous NOEL albaroSANCHEZ 02-04-2014 blood venipuncture Other Start: Skin test Doctor Migration 01-25-2014 tuberculosis intradermal Start: Mammogram, NOEL albaroSANCHEZ 01-04-2014 screening Other Phone: Osteotomy; calcaneus (eg, Clemente or Chambers type procedure), with or withou Results Test Name Value Interpreta Reference Facilit Date tion Range y Time laboratory on null Free T3 [Mass/Vol] 4.8 pg/mL High 2.3-4.2 Not pg/mL Availab le (86214) not yet categorized on 2019-10-29 NAME: STEFANIE LIU ~MED REC#: [id number] Invalid PENDING ~ ~CARE PROVIDER: Interpreta LOCKARLI ZIMMERMAN MD ~Post-Operative Progess Note tion Code N KHS ~Surgeon (s)/Banding Machine Operator (s) ~Surgeon ~KARLI (0000 0) KESHIA CARTAGENA ~Banding Machine Operator: none ~ ~Pre-Operati ve Diagnosis ~screening colonoscopy ~ ~Post-Operative Diagnosis ~ ~mild chron ic stage 1 ext and int hemorrhoids. ~ ~Pro cedure Operative Findings ~Date of Procedure ~10/29/19 ~Procedure Performed/Findings ~colonoscopy ~Anesthesia Type ~mac ~ ~Estimated Blood Loss ~Estimated blood loss (mL): minimal ~ ~Specimens/Packing ~Spe cimens Removed ~none ~ ~ ~ ~KARLI SCHMITT MD [facility] 2019 12:17 ~ ~ ~<Created by KARLI Rangel MD> ~<Electronically signed by KARLI SCHMITT MD> 10/29/19 1217 ~ ~ not yet categorized on 2019-01-01 BLO trace Invalid Communi Interpreta ty tion Code [facility] (12449) KET Negative Invalid Communi Interpreta ty tion Code [facility] (66733) HILLARY Positive Invalid Communi Interpreta ty tion Code [facility] (23779) SG 1.025 Invalid Communi Interpreta ty tion Code [facility] (84986) URO 0.2 Invalid Communi Interpreta ty tion Code [facility] (21508) laboratory on 2019-01-01 Bacteria identified SEE NOTE Abnormal Communi Cx Nom (U) ty [facility] (07699) pH (Bld) 6.5 [pH] Invalid Communi Interpreta ty tion Code [facility] (33193) Protein (U) Negative Invalid Communi [Mass/Vol] Interpreta ty tion Code [facility] (80593) not yet categorized on 2017-10-24 CLINICAL Normal Not INFORMATION: Availab le (64697) COMMENT Invalid Not Interpreta Availab tion Code le (82507) Control neg~+ Date of previous NO Normal Not biopsy [facility]ail[facility] (67438) Date of previous PAP 2013 Normal Not smear [facility] (95441) Exp date 09/2018 Invalid Not Interpreta Availab tion Code le (08272) Exp date 05/2018 Invalid Interpreta tion Code Last menstrual 2012 Normal Not period start date [facility]ail[facility] le (91503) Lot # [id number] Invalid Not Interpreta Availab tion Code le (90735) Lot # [id number] Invalid Interpreta tion Code laboratory on 2017-10-24 Bacteria identified SEE NOTE Invalid Not Aer cx Nom (Genital Interpreta Availab specimen) tion Code le (28915) Order Picker Cyto Normal Not stain Nom (Cvx/Vag) Availab [ID] le (62315) Microscopic Normal Not observation Cyto Availab stain Nom (Cvx) le (99339) Specimen source Cyto Normal Not stain Nom (Cvx/Vag) [facility]ail[facility] (59421) Statement of Normal Not adequacy Cyto stain Availab (Cvx/Vag) [Interp] le (49051) laboratory on 2017-05-27 Free T4 [Mass/Vol] 1.4 ng/dL Normal 0.8-1.8 Not ng/dL [facility] (33573) TPO Ab Qn 182 [IU]/mL High <9 IU/mL [facility] (72583) not yet categorized on 2017-05-01 INTERPRETATION Invalid Not Interpreta Availab tion Code le (75257) laboratory on 2017-05-01 Albumin [Mass/Vol] 4.6 g/dL Normal 3.6-5.1 g/dL Albumin/Globulin 1.4 {ratio} Normal 1.0-2.5 [Mass ratio] (calc) ALP [Catalytic 111 U/L Normal 33-115 U/L activity/Vol] ALT [Catalytic 12 U/L Normal 6-29 U/L activity/Vol] AST [Catalytic 14 U/L Normal 10-35 U/L activity/Vol] Basophils (Bld) 0.019 10*3/uL Normal 0-200 Not [#/Vol] cells/uL [facility]ail[facility] (90741) Basophils/100 WBC 0.3 % Normal % Not (Bld) Avail[facility] le (87557) Bilirubin [Mass/Vol] 0.6 mg/dL Normal 0.2-1.2 mg/dL Calcium [Mass/Vol] 10.1 mg/dL Normal 8.6-10.2 mg/dL Chloride [Moles/Vol] 100 mmol/L Normal 98-110 mmol/L Cholesterol 239 mg/dL High <200 mg/dL Not [Mass/Vol] Avail[facility] le (08208) Cholesterol in HDL 35 mg/dL Low >50 mg/dL Not [Mass/Vol] [facility] (95164) Cholesterol in LDL 157 mg/dL High mg/dL Not [Mass/Vol] (calc) [facility] (43538) Cholesterol non HDL 204 mg/dL High <130 mg/dL Not [Mass/Vol] (calc) [facility]ail[facility] (95858) Cholesterol.total/Ch 6.8 {ratio} High <5.0 Not olesterol in HDL (calc) Availab [Mass ratio] le (41311) CO2 [Moles/Vol] 26 mmol/L Normal 20-31 mmol/L Creatinine 0.71 mg/dL Normal 0.50-1.10 [Mass/Vol] mg/dL Eosinophils (Bld) 0.09 10*3/uL Normal 15-500 Not [#/Vol] cells/uL Avail[facility] (90882) Eosinophils/100 WBC 1.4 % Normal % Not (Bld) Availab le (24590) Erythrocyte 13.4 % Normal 11.0-15.0 Not distribution width % Availab (RBC) [Ratio] le (13151) Free T4 [Mass/Vol] 1.5 ng/dL Normal 0.8-1.8 Not ng/dL Avail[facility] le (92131) GFR/1.73 sq 118 mL/min/{1.73_m2} Normal > OR = 60 M.predicted among mL/min/1.7 blacks MDRD 3m2 (S/P/Bld) [Vol rate/Area] GFR/1.73 sq 101 mL/min/{1.73_m2} Normal > OR = 60 M.predicted MDRD mL/min/1.7 (S/P/Bld) [Vol 3m2 rate/Area] Globulin (S) 3.2 g/dL Normal 1.9-3.7 [Mass/Vol] g/dL (calc) Glucose [Mass/Vol] 92 mg/dL Normal 65-99 mg/dL HbA1c (Bld) [Mass 5.1 Normal <5.7 % of Not fraction] total Hgb Availab le (12795) Hematocrit (Bld) 40.8 % Normal 35.0-45.0 Not [Volume fraction] % Availab le (95737) Hemoglobin (Bld) 13.3 g/dL Normal 11.7-15.5 Not [Mass/Vol] g/dL Avail[facility] le (21668) Lymphocytes (Bld) 2.176 10*3/uL Normal 850-3900 Not [#/Vol] cells/uL Avail[facility] le (96197) Lymphocytes/100 WBC 34.0 % Normal % Not (Bld) Availab le (81270) MCH (RBC) [Entitic 28.1 pg Normal 27.0-33.0 Not mass] pg Availab le (03739) MCHC (RBC) 32.6 g/dL Normal 32.0-36.0 Not [Mass/Vol] g/dL Availab le (93105) MCV (RBC) [Entitic 86.1 fL Normal 80.0-100.0 Not vol] fL Availab le (66603) Monocytes (Bld) 0.454 10*3/uL Normal 200-950 Not [#/Vol] cells/uL Availab le (23549) Monocytes/100 WBC 7.1 % Normal % Not (Bld) Availab le (06066) Neutrophils (Bld) 3.661 10*3/uL Normal 4324-5667 Not [#/Vol] cells/uL Availab le (93878) Neutrophils/100 WBC 57.2 % Normal % Not (Bld) Availab le (09904) Platelet mean volume 9.8 fL Normal 7.5-12.5 Not (Bld) [Entitic vol] fL Availab le (20312) Platelets (Bld) 274 10*3/uL Normal 140-400 Not [#/Vol] Thousand/u Availab L le (61695) Potassium 3.8 mmol/L Normal 3.5-5.3 [Moles/Vol] mmol/L Protein [Mass/Vol] 7.8 g/dL Normal 6.1-8.1 g/dL RBC (Bld) [#/Vol] 4.74 10*6/uL Normal 3.80-5.10 Not Million/uL Availab le (30359) Sodium [Moles/Vol] 137 mmol/L Normal 135-146 mmol/L Triglyceride 303 mg/dL High <150 mg/dL Not [Mass/Vol] Availab le (68920) TSH Qn m[IU]/L Low mIU/L Not Availab le (51323) Urea nitrogen 15 mg/dL Normal 7-25 mg/dL [Mass/Vol] Urea NOT APPLICABLE Invalid 09-19 nitrogen/Creatinine Interpreta (calc) [Mass ratio] tion Code WBC (Bld) [#/Vol] 6.4 10*3/uL Normal 3.8-10.8 Not Thousand/u Availab L le (05328) laboratory on 2017-01-18 Bacteria identified Note Invalid Not Cx Nom (U) Interpreta Availab 017 tion Code le 16:17-0 (52359) 400 laboratory on 2017-01-04 Bacteria identified Note Invalid Not Cx Nom (U) Interpreta Availab 017 tion Code le 18:53-0 (09958) 400 Social History The data below is from unstructured sourcesNot available. Vital Signs Date Time Vital Sign Value Performing Clinician Facil ity 10-24-2017 Body height 170.18 cm [facility]th 11:0400 Other Phone: [facility] [place] (09005) 10-24-2017 Body mass index 28.35 kg/m2 [facility] 11: (BMI) [Ratio] Other Phone: [facility] [place] (84268) 10-24-2017 Body temperature 98.3 [degF] [facility] 11:-040 Other Phone: [facility] [place] ([id number]) 10-24-2017 Body weight 82.1 kg [facility] 11:20-0400 Other Phone: [facility] [place] ([id number]) 09-15-2017 Body height 170.18 cm [facility] alth 12:20-0400 Other Phone: [facility] [place] ([id number]) 09-15-2017 Body mass index 29.32 kg/m2 MATTHIEU CORBIN [facility] 12: (BMI) [Ratio] Other Phone: Center [facility] [place] ([id number]) 09-15-2017 Body temperature 97.9 [degF] MATTHIEU CORBIN [facility] 12: Other Phone: Center [facility] [place] ([id number]) 09-15-2017 Body weight 84.91 kg MATTHIEU CORBIN [facility] 12: Other Phone: [facility] [place] ([id number]) 04-14-2014 Body height 170.18 cm [facility] 17:28-0500 Other Phone: [facility] [place] ([id number]) 04-14-2014 Body temperature 97.4 [degF] [facility] 17:28-0500 Other Phone: Center [facility] [place] ([id number]) 04-14-2014 Body weight 97.98 kg [facility] 17:28-0500 Other Phone: [facility] [place] ([id number]) 03-14-2014 Body height 170.18 cm [facility] 16:57-0500 Other Phone: [facility] [place] ([id number]) 03-14-2014 Body temperature 98.4 [degF] [facility] 16:57-0500 Other Phone: [facility] [place] ([id number]) 03-14-2014 Body weight 101.38 kg [facility] ealt 16:57-0500 Other Phone: [facility] [place] ([id number]) 02-28-2014 Body height 170.18 cm [facility] 17:13-0500 [facility] ([id number]) 02-28-2014 Body temperature 99.3 [degF] Doctor Migration [facility] 17:13-0500 [facility] ([id number]) 02-28-2014 Body weight 99.7 kg Doctor Migration [facility] 17:130500 [facility] ([id number]) 01-04-2014 Body temperature 99.1 [degF] NOEL Prasad [facility] 17:580400 Other Phone: [facility] [place] ([id number]) 01-04-2014 Body weight 95.34 kg [facility] 17:580400 Other Phone: [facility] [place] ([id number]) Functional Status The data below is from unstructured sourcesNo functional status results.No functional status information available.No functional status information available. Mental Status No Information Coronavirus Ab Qn (S) 2019-10-26 Note Date & Note Facility Type 10-26-2019 NOT DETECTED (L) JASKARAN S-CoV-2 RT PCR~~The PENDING LOCATION [facility] Coronavirus Ab SARS-CoV-2 (COVID-19) RT-PCR procedure performed at~[facility] (62253) Qn (S) Laboratory is a real-time R T-PCR test intended for~the qualitative detection of SARS-CoV-2 specific nuclei c~acid from upper respiratory tract specimens (nasopharyn geal~or oropharyngeal swabs). The performance of this test hurtado s~not been established for monitoring treatment of SARS-CoV-2~infe ction. This test was developed and its performance~character istics determined by [employer] This test~was developed fo r use as a part of a response to the public~health emergency declared to address the outbreak of~COVID-19. This test has not been reviewed by the Food and~Drug Administration. The FDA has de termined that such~clearance or approval is not neces poly. This test is used~for clinical purposes. It should not be reg arded as~investigational or for research. This laboratory is~certif ied under the Clinical Laboratory Improvement Act of~1987 (CLI A-88) as qualified to perform high complexity~clinical labora tory testing. A positive (DETECTED) result is~indicative of the presence of SARS-CoV-2 RNA but does not~rule out bacterial infecti on or co-infection with other~viruses. Laboratories within the [place] and its~territories are required to report all positive results to~the appropriate public health authorities. A negative (NOT~DETECTED) result does not definitively rule out S ARS-CoV-2~infection and should be combined with clinical observ ations,~patient history, and epidemiological information when ma [place]~clinical decisions.~~Test Performed at:~[facility]~[address]~[place] [address]~ ~ Clinical Note Note Date & Note Facility Type Note NAME: STEFANIE LIU ~MED REC#: [id number] ~ PENDING LOCATION [facility] ~CARE PROVIDER: KARLI SCHMITT MD ~Pre-Operative Progre ss Note ~H P (25389) Reviewed ~The H P was reviewed, patient examined and no changes noted. ~Date Seen by Provider: Oct 29, 2019 ~Time Seen by Provider: 11:00 ~Date H P Reviewed: Oct 29, 2019 ~Time H P Reviewed: 11:00 ~Pre-Operative Diagnosi s: screening colonoscopy ~ ~ ~ ~KARLI SCHMITT MD Oct 29, 2019 12:15 ~ ~ ~<Created by KARLI SCHMITT MD> ~<Electronically signed by DEANDRE SCHMITT MD> 10/29/19 1215 ~ ~ Advance Directives Directive Response Recor ded Date/Time Advance Directives No 1:19pm Resuscitation Status Full Code 12/10/15 1:19pm Directive Response Recor ded Date/Time Advance Directives No 1:19pm Discharge Instructions No hospital discharge instructions.No hospital discharge instruction information available. Summary Purpose eClinicalWorks SubmissioneClinicalWorks SubmissioneClinicalWorks Submission Additional Source Comments This clinical document has been generated using [employer] software that has been certified by the Office of the National Coordinator for Health Information Technology (ONC 15.99.04.3023.Diam.31.00.0.243409) and the National Committee for Device Test Engineer (NCQA, as an eMeasure certified technology). FOR RECORDS PERTAINING TO PATIENTS WHO ARE OR HAVE BEEN ENROLLED IN A CHEMICAL D EPENDENCY/SUBSTANCE ABUSE PROGRAM, SOME INFORMATION MAY BE OMITTED. This clinica l summary was aggregated from multiple sources. Caution should be exercised in using it in the provision of clinical care. This summary normalizes information from multiple sources, and as a consequence, information in this document may ma terially change the coding, format and clinical context of patient data. In remington tion, data may be omitted in some cases. CLINICAL DECISIONS SHOULD BE BASED ON T HE PRIMARY CLINICAL RECORDS. [facility]. provides no warranty or guara ntee of the accuracy or completeness of information in this document.The followi ng information is based on time limited clinical information UNRECOGNIZED CONTENT PROVIDED BELOW FOR UNRECOGNIZED SECTION REASON FOR VISIT Annual physical (female)., also taking Mannose OTC, Thyrovanz thyroid supp-awood sTestoserone- LVMFLU GLQPNMG-VlrIGJ-Vdp
--- OUTSIDE RECORDS SUMMARY | 2019-10-29 17:28 | XMS REPORT ---
Author Author Shruit Rojas Organization [facility] Address [address] [place], [place] [address] Care Team Providers Care Veterinary Surgery Technologist Name Role Phone Abdirashid Rojas PCP Allergies and Adverse Reactions Name Reaction Notes PENICILLINS Plan of Treatment Not available. Medications Active Name Start Date Estimated Completion Date SIG Co mments Bactrim 400-80 mg oral tablet Problem List Not available. Vital Signs Date Time BP-Sys(mm[Hg] BP-Laura(mm[Hg]) HR(bpm) RR(rpm) Temp WT HT HC BMI BSA BMI Percentile O2 Sat(%) 04/08/2016 5:09:00 PM 132 mmHg 76 mmHg 71 bpm 18 rpm 97.7 F 214.125 lbs 67 i n 33.54 kg/m2 2.14 m2 97 % Social History Not available. History of Procedures Not available. Results Summary Not available. History Of Immunizations Not available. History of Past Illness Name Date of Onset Comments Chronic UTI Closed head injury, initial encounter Apr 08 2016 5:10PM Concussion, without loss of consciousness, initial enc ounter Apr 08 2016 5:10PM Payers Insurance Name Company Name Plan Name Plan Number Policy Number Sami cy Group Number Start Date [facility] Education [facility] [id number] N/A History of Encounters Visit Date Visit Type Provider 04/08/2016 Office visit Abdirashid Rojas APR N
--- OUTSIDE RECORDS SUMMARY | 2019-10-29 17:28 | XMS REPORT ---
Author Author Shruti Prasad Organization [facility] Address [address] [place] [address] Care Team Providers Care Clinical Nurse Occupational Medicine Name Role Phone NOEL Prasad Unavailable PROBLEMS Type Condition ICD9-CM Code [id number] Code Onset Dates Condition S tatus SNOMED Code Problem Overweight (BMI 25.0-29.9) E66.3 Act murphy 655845299 Problem Postmenopausal vaginal bleeding N95.0 Active 07333534 Problem Hyperthyroidism E05.90 Active 3448 6009 Problem Chronic UTI N39.0 Active 85571526 6 Problem Vitamin D deficiency E55.9 Active 63743678 ALLERGIES No Information ENCOUNTERS Encounter Location Date Diagnosis [place] [address] [address] Dec, Encounter for immunization Z 23 [place] [address] [address] 08 Oct, 2017 [place] [address] [address] Sep, [place] [address] [address] Sep, Encounter for well woman exa m with routine gynecological exam Z01.419 ; Screening for STDs (sexually transmitted diseases) Z11.3 ; Overweight (BMI 25.0-29.9) E66.3 and Chronic UTI N39.0 [place] [address] [address] Aug, Hyperthyroidism E05.90 ; Chr onic UTI N39.0 ; Vitamin D deficiency E55.9 ; Postmenopausal vaginal bleeding N95.0 and Overweight (BMI 25.0-29.9) E66.3 [facility] [address] [id number] [address] [place] [address] July, [facility] [address] [facility] [id number] [address] [place] [address] May, [facility] [address] [id number] [address] [place] [address] May, Hyperthyroidism E05.90 [facility] [address] [facility] [id number] [address] [place] [address] May, Hyperthyroidism E05.90 [facility] [address] [facility] [id number] [address] [place] [address] May, Hyperthyroidism E05.90 [facility] [address] [facility] [id number] [address] [place] [address] May, [facility] [address] [facility] [id number] [address] [place] [address] May, [facility] [address] [facility] [id number] [address] [place] [address] May, Hyperthyroidism E05.90 ; Keshia ast cancer screening by mammogram Z12.31 and Vitamin D deficiency E55.9 [facility] [address] [facility] [id number] [address] [place] [address] May, [facility] [address] [facility] [id number] [address] [place] [address] May, Acquired hypothyroidism E03. 9 ; Chronic UTI N39.0 ; Screening cholesterol level Z13.220 and Screening for diabetes mellitus Z13.1 [facility] [address] [facility] [id number] [address] [place] [address] Mar, Acquired hypothyroidism E03. 9 ; Chronic UTI N39.0 ; Screening cholesterol level Z13.220 and Screening for diabetes mellitus Z13.1 [facility] [address] [facility] [id number] [address] [place] [address] Jan, Complicated urinary tract in fection N39.0 [facility] [address] [id number] [address] [place] [address] Jan, Complicated urinary tract in fection N39.0 and Vaginal candidiasis B37.3 [facility] [address] [id number] [address] [place] [address] Dec, Dysuria R30.0 and Acute cyst itis with hematuria N30.01 [facility] [address] [id number] [address] [place] [address] Dec, Dysuria R30.0 [facility] [address] [id number] [address] [place] [address] Dec, [facility] [address] [id number] [address] [place] [address] Dec, Dysuria R30.0 and Acute cyst itis with hematuria N30.01 [facility] [address] [id number] [place] [id number] Nov, Encounter for immunization Z 23 [facility] [address] [facility] [id number] [address] [place] [id number] Sep, Dental examination Z01.20 [facility] [address] [facility] [id number] [address] [place] [address] Aug, Visit for TB skin test Z11.1 [facility] [address] [id number] [address] [place] [id number] Dec, Dental examination Z01.20 [facility] [address] [id number] [address] [place] [address] 10 Nov, 2015 Dysuria R30.0 [facility] [address] [id number] [address] [place] [id number] May, Dental examination Z01.20 [facility] [address] [id number] [address] [place] [id number] 17 Nov, 2014 Dental examination V72.2 [facility] [address] [id number] [address] [place] [address] 14 Jun, 2014 [facility] [address] [id number] [address] [place] [address], [place] [address] Jun, [facility] [address] [id number] [address] [place] [address], [place] [address] May, [facility] [address] [id number] [address] [place] [address], [place] [address] May, [facility] [address] [id number] [address] [place] [address], [place] [address] Mar, [facility] [address] [id number] [address] [place] [address], [place] [address] Mar, [facility] [address] [id number] [address] [place] [address], [place] [address] Mar, [facility] [address] [id number] [address] [place] [address], [place] [address] Mar, [facility] [address] [id number] [address] [place] [address], [place] [address] Mar, [facility] [address] [id number] [address] [place] [address], [place] [address] Feb, [facility] [address] [id number] [address] [place] [address], [place] [address] Feb, [facility] [address] [id number] [address] [place] [address], [place] [address] Feb, [facility] [address] [id number] [address] [place] [address], [place] [address] Feb, [facility] [address] [id number] [address] [place] [address], [place] [address] Feb, [facility] [address] [id number] [address] [place] [address], [place] [address] Feb, [facility] [address] [id number] [address] [place] [address], [place] [address] Jan, [facility] [address] [id number] [address] [place] [address] Jan, [facility] [address] [id number] [address] [place] [address] Jan, [facility] [address] [id number] [address] [place] [address] Jan, [facility] [address] [id number] [address] [place] [address] Jan, [facility] [address] [id number] [address] [place] [address] Jan, [facility] [address] [id number] [address] [place] [phone] Jan, [facility] [address] [id number] [address] [place] [address] Dec, [facility] [address] [id number] [address] [place] [address] Dec, [facility] [address] [id number] [address] [place] [address] Dec, [facility] [address] [id number] [address] [place] [address] Dec, [facility] [address] [id number] [address] [place] [address] Feb, [facility] [address] [id number] [address] [place] [phone] Feb, IMMUNIZATIONS No Known Immunizations SOCIAL HISTORY Never Assessed REASON FOR VISIT PLAN OF CARE VITAL SIGNS Weight 210.19 lbs 2014-01-04 Temperature 99.1 degrees Fahrenheit 2014-01-04 Heart Rate 80 bpm 2014-01-04 Respiratory Rate 18 2014-01-04 Blood pressure systolic 132 mmHg 2014-01-04 Blood pressure diastolic 84 mmHg 2014-01-04 MEDICATIONS Unknown Medications RESULTS No Results PROCEDURES Procedure Date Ordered Result Body Site MAMMOGRAM, SCREENING Jan 04, 2014 INSTRUCTIONS MEDICATIONS ADMINISTERED No Known Medications [...]
--- OUTSIDE RECORDS SUMMARY | 2019-10-29 17:28 | XMS REPORT ---
Author Author Shruti Prasad Organization [facility] Address [address] [place] [address] Care Team Providers Care Rehabilitation Therapy Aide Name Role Phone NOEL Prasad Unavailable PROBLEMS Type Condition ICD9-CM Code [id number] Code Onset Dates Condition S tatus SNOMED Code Problem Overweight (BMI 25.0-29.9) E66.3 Act murphy [id number] Problem Postmenopausal vaginal bleeding N95.0 Active 51711676 Problem Hyperthyroidism E05.90 Active 3448 6009 Problem Chronic UTI N39.0 Active 88389975 6 Problem Vitamin D deficiency E55.9 Active 03652753 ALLERGIES No Information ENCOUNTERS Encounter Location Date Diagnosis [place] [address] [address] Dec, Encounter for immunization Z 23 [place] [address] [address] Oct, [place] [address] [address] Sep, [place] [address] [address] Sep, Encounter for well woman exa m with routine gynecological exam Z01.419 ; Screening for STDs (sexually transmitted diseases) Z11.3 ; Overweight (BMI 25.0-29.9) E66.3 and Chronic UTI N39.0 [place] [address] [address] Aug, Hyperthyroidism E05.90 ; Chr onic UTI N39.0 ; Vitamin D deficiency E55.9 ; Postmenopausal vaginal bleeding N95.0 and Overweight (BMI 25.0-29.9) E66.3 [facility] [address] [id number] [address] [place] [phone] July, [facility] [address] [facility] [id number] [address] [place] [phone] May, [facility] [address] [id number] [address] [place] [address] May, Hyperthyroidism E05.90 [facility] [address] [facility] [id number] [address] [place] [address] May, Hyperthyroidism E05.90 [facility] [address] [facility] [id number] [address] [place] [address] May, Hyperthyroidism E05.90 [facility] [address] [facility] [id number] [address] [place] [phone] May, [facility] [address] [facility] [id number] [address] [place] [phone] May, [facility] [address] [facility] [id number] [address] [place] [phone] May, Hyperthyroidism E05.90 ; Keshia ast cancer screening by mammogram Z12.31 and Vitamin D deficiency E55.9 [facility] [address] [facility] [id number] [address] [place] [phone] May, [facility] [address] [facility] [id number] [address] [place] [phone] May, Acquired hypothyroidism E03. 9 ; Chronic UTI N39.0 ; Screening cholesterol level Z13.220 and Screening for diabetes mellitus Z13.1 [facility] [address] [facility] [id number] [address] [place] [phone] Mar, Acquired hypothyroidism E03. 9 ; Chronic UTI N39.0 ; Screening cholesterol level Z13.220 and Screening for diabetes mellitus Z13.1 [facility] [address] [facility] [id number] [address] [place] [phone] Jan, Complicated urinary tract in fection N39.0 [facility] [address] [id number] [address] [place] [phone] Jan, Complicated urinary tract in fection N39.0 and Vaginal candidiasis B37.3 [facility] [address] [id number] [address] [place] [id number] Dec, Dysuria R30.0 and Acute cyst itis with hematuria N30.01 [facility] [address] [id number] [address] [place] [phone] Dec, Dysuria R30.0 [facility] [address] [id number] [address] [place] [phone] Dec, [facility] [address] [id number] [address] [place] [id number] Dec, Dysuria R30.0 and Acute cyst itis with hematuria N30.01 [facility] [address] [id number] [place] [id number] Nov, Encounter for immunization Z 23 [facility] [address] [facility] [id number] [address] [place] [address] [id number] Sep, Dental examination Z01.20 [facility] [address] [facility] [id number] [address] [place] [address] Aug, Visit for TB skin test Z11.1 [facility] [address] [id number] [address] [place] [id number] Dec, Dental examination Z01.20 [facility] [address] [id number] [address] [place] [id number] 10 Nov, 2015 Dysuria R30.0 [facility] [address] [id number] [address] [place] [id number] May, Dental examination Z01.20 [facility] [address] [id number] [address] [place] [address] [id number] 17 Nov, 2014 Dental examination V72.2 [facility] [address] [id number] [address] [place] [phone] 14 Jun, 2014 [facility] [address] [id number] [address] [place] [address], [place] [address] Jun, [facility] [address] [id number] [address] [place] [address], [place] [address] May, [facility] [address] [id number] [address] [place] [address], [place] [address] May, [facility] [address] [id number] [address] [place] [address], [place] [address] Mar, [facility] [address] [id number] [address] [place] [address], [place] [address] Mar, [facility] [address] [id number] [address] [place] [address], [place] [address] Mar, [facility] [address] [id number] [address] [place] [address], [place] [address] Mar, [facility] [address] [id number] [address] [place] [address], [place] [address] Mar, [facility] [address] [id number] [address] [place] [address], [place] [address] Feb, [facility] [address] [id number] [address] [place] [address], [place] [address] Feb, [facility] [address] [id number] [address] [place] [address], [place] [address] Feb, [facility] [address] [id number] [address] [place] [address], [place] [address] Feb, [facility] [address] [id number] [address] [place] [address], [place] [address] Feb, [facility] [address] [id number] [address] [place] [address], [place] [address] Feb, [facility] [address] [id number] [address] [place] [address], [place] [address] Jan, [facility] [address] [id number] [address] [place] [phone] Jan, [facility] [address] [id number] [address] [place] [phone] Jan, [facility] [address] [id number] [address] [place] [phone] Jan, [facility] [address] [id number] [address] [place] [phone] Jan, [facility] [address] [id number] [address] [place] [phone] Jan, [facility] [address] [id number] [address] [place] [phone] Jan, [facility] [address] [id number] [address] [place] [phone] Dec, [facility] [address] [id number] [address] [place] [phone] Dec, [facility] [address] [id number] [address] [place] [phone] Dec, [facility] [address] [id number] [address] [place] [phone] Dec, [facility] [address] [id number] [address] [place] [phone] Feb, [facility] [address] [id number] [address] [place] [phone] Feb, IMMUNIZATIONS No Known Immunizations SOCIAL HISTORY Never Assessed REASON FOR VISIT PLAN OF CARE VITAL SIGNS MEDICATIONS Unknown Medications RESULTS No Results PROCEDURES Procedure Date Ordered Result Body Site ASSAY, TRIIODOTHYRONINE (T3) Feb 04, 2014 ASSAY THYROID STIM HORMONE Feb 04, 2014 ASSAY OF FREE THYROXINE Feb 04, 2014 VENIPUNCT, ROUTINE* Feb 04, 2014 INSTRUCTIONS MEDICATIONS ADMINISTERED No Known [...]
--- OUTSIDE RECORDS SUMMARY | 2019-10-29 17:28 | XMS REPORT ---
Author Author Shruti Flores Organization [facility] Address [address] [place] [address] Care Team Providers Care Hardware Manager Name Role Phone BHAVIK Flores Unavailable PROBLEMS Type Condition ICD9-CM Code GSN54-GC Code Onset Dates Condition S tatus SNOMED Code Problem Overweight (BMI 25.0-29.9) E66.3 Act murphy 873181385 Problem Postmenopausal vaginal bleeding N95.0 Active 05816487 Problem Hyperthyroidism E05.90 Active 3448 6009 Problem Chronic UTI N39.0 Active 06875301 6 Problem Vitamin D deficiency E55.9 Active 80093223 ALLERGIES No Information ENCOUNTERS Encounter Location Date Diagnosis [place] [address] [address] Dec, Encounter for immunization Z 23 [place] [address] [address] Oct, [place] [address] [address] Sep, [place] [address] [address] Sep, Encounter for well woman exa m with routine gynecological exam Z01.419 ; Screening for STDs (sexually transmitted diseases) Z11.3 ; Overweight (BMI 25.0-29.9) E66.3 and Chronic UTI N39.0 [place] [address] [address] Aug, Hyperthyroidism E05.90 ; Chr onic UTI N39.0 ; Vitamin D deficiency E55.9 ; Postmenopausal vaginal bleeding N95.0 and Overweight (BMI 25.0-29.9) E66.3 [place] [address] [facility] [id number] [address] [place] [address] July, [facility] [address] [facility] [id number] [address] [place] [address] May, [facility] [address] [facility] [id number] [address] [place] [address] May, Hyperthyroidism E05.90 [facility] [address] [facility] [id number] [address] [place] [address] May, Hyperthyroidism E05.90 [facility] [address] [facility] [id number] [address] [place] [address] May, Hyperthyroidism E05.90 [facility] [address] [facility] [id number] [address] [place] [address] May, [facility] [address] [facility] [id number] [address] [place] [address] May, [facility] [address] [facility] [id number] [address] [place] [address] May, Hyperthyroidism E05.90 ; Keshia ast cancer screening by mammogram Z12.31 and Vitamin D deficiency E55.9 [facility] [address] [facility] [id number] [address] [place] [address] May, [facility] [address] [facility] [id number] [address] [place] [address] May, Acquired hypothyroidism E03. 9 ; Chronic UTI N39.0 ; Screening cholesterol level Z13.220 and Screening for diabetes mellitus Z13.1 [facility] [address] [facility] [id number] [address] [place] [address] Mar, Acquired hypothyroidism E03. 9 ; Chronic UTI N39.0 ; Screening cholesterol level Z13.220 and Screening for diabetes mellitus Z13.1 [facility] [address] [facility] [id number] [address] [place] [address] Jan, Complicated urinary tract in fection N39.0 [facility] [address] [id number] [address] [place] [address] Jan, Complicated urinary tract in fection N39.0 and Vaginal candidiasis B37.3 [facility] [address] [id number] [address] [place] [address] Dec, Dysuria R30.0 and Acute cyst itis with hematuria N30.01 [facility] [address] [id number] [address] [place] [phone] Dec, Dysuria R30.0 [facility] [address] [id number] [address] [place] [address] Dec, [facility] [address] [facility] [id number] [address] [place] [address] Dec, Dysuria R30.0 and Acute cyst itis with hematuria N30.01 [facility] [address] [id number] [place] [id number] 27 Nov, 2016 Encounter for immunization Z 23 [facility] [address] [facility] [id number] [address] [place] [id number] Sep, Dental examination Z01.20 [facility] [address] [facility] [id number] [address] [place] [address] Aug, Visit for TB skin test Z11.1 [facility] [address] [id number] [address] [place] [id number] Dec, Dental examination Z01.20 [facility] [address] [id number] [address] [place] [id number] 10 Nov, 2015 Dysuria R30.0 [facility] [address] [id number] [address] [place] [address] [id number] May, Dental examination Z01.20 [facility] [address] [id number] [address] [place] [address] [id number] 17 Nov, 2014 Dental examination V72.2 [facility] [address] [id number] [address] [place] [id number] 14 Jun, 2014 [facility] [address] [id number] [address] [place] [address], [place] [address] Jun, [facility] [address] [id number] [address] [place] [address], [place] [address] May, [facility] [address] [id number] [address] [place] [address], [place] [address] May, [facility] [address] [id number] [address] [place] [address], [place] [address] Mar, [facility] [address] [id number] [address] [place] [address], [place] [address] Mar, [facility] [address] [id number] [address] [place] [address], [place] [address] Mar, [facility] [address] [id number] [address] [place] [address], [place] [address] Mar, [facility] [address] [id number] [address] [place] [address], [place] [address] Mar, [facility] [address] [id number] [address] [place] [address], [place] [address] Feb, [facility] [address] [id number] [address] [place] [address], [place] [address] Feb, [facility] [address] [id number] [address] [place] [address], [place] [address] Feb, [facility] [address] [id number] [address] [place] [address], [place] [address] Feb, [facility] [address] [id number] [address] [place] [address], [place] [address] Feb, [facility] [address] [id number] [address] [place] [address], [place] [address] Feb, [facility] [address] [id number] [address] [place] [address], [place] [address] Jan, [facility] [address] [id number] [address] [place] [address] Jan, [facility] [address] [id number] [address] [place] [address] Jan, [facility] [address] [id number] [address] [place] [address] Jan, [facility] [address] [id number] [address] [place] [address] Jan, [facility] [address] [id number] [address] [place] [address] Jan, [facility] [address] [id number] [address] [place] [address] Jan, [facility] [address] [id number] [address] [place] [address] Dec, [facility] [address] [id number] [address] [place] [address] Dec, [facility] [address] [id number] [address] [place] [address] Dec, [facility] [address] [id number] [address] [place] [address] Dec, [facility] [address] [id number] [address] [place] [address] Feb, [facility] [address] [id number] [address] [place] [address] Feb, IMMUNIZATIONS No Known Immunizations SOCIAL HISTORY [...]
--- OUTSIDE RECORDS SUMMARY | 2019-10-29 17:29 | XMS REPORT ---
Author Author Shruti Doll Doctor Organization [facility] Address Unknown Phone Unavailable Care Team Providers Care Dispensary Clerk Name Role Phone Migration, Doctor Unavailable Unavailable PROBLEMS Type Condition ICD9-CM Code XPU96-SK Code Onset Dates Condition S tatus SNOMED Code Problem Overweight (BMI 25.0-29.9) E66.3 Act murphy [id number] Problem Postmenopausal vaginal bleeding N95.0 Active 77886053 Problem Hyperthyroidism E05.90 Active 3448 6009 Problem Chronic UTI N39.0 Active 04000072 6 Problem Vitamin D deficiency E55.9 Active [id number] ALLERGIES No Information ENCOUNTERS Encounter Location Date Diagnosis [place] [address] [address] Dec, Encounter for immunization Z 23 [place] [address] [address] Oct, [place] [address] [address] Sep, [place] [address] [address] [place] [id number] [place] [address] Sep, Encounter for well woman exa m with routine gynecological exam Z01.419 ; Screening for STDs (sexually transmitted diseases) Z11.3 ; Overweight (BMI 25.0-29.9) E66.3 and Chronic UTI N39.0 [place] [address] [address] [place] [id number] [address] [place] [address] Aug, Hyperthyroidism E05.90 ; Chr onic UTI N39.0 ; Vitamin D deficiency E55.9 ; Postmenopausal vaginal bleeding N95.0 and Overweight (BMI 25.0-29.9) E66.3 [place] [address] [address] [place] [id number] [place] [address] July, [place] [address] [facility] [id number] [address] [place] [address] May, [facility] [address] [facility] [id number] [address] [place] [address] May, Hyperthyroidism E05.90 [facility] [address] [facility] [id number] [address] [place] [address] May, Hyperthyroidism E05.90 [facility] [address] [facility] [id number] [address] [place] [address] May, Hyperthyroidism E05.90 [facility] [address] [facility] [id number] [address] [place] [address] May, [facility] [address] [facility] [id number] [address] [place] [address] May, [facility] [address] [facility] [id number] [address] [place] [address] May, Hyperthyroidism E05.90 ; Keshia ast cancer screening by mammogram Z12.31 and Vitamin D deficiency E55.9 [facility] [address] [facility] [id number] [address] [place] [phone] May, [facility] [address] [facility] [id number] [address] [place] [address] May, Acquired hypothyroidism E03. 9 ; Chronic UTI N39.0 ; Screening cholesterol level Z13.220 and Screening for diabetes mellitus Z13.1 [facility] [address] [facility] [id number] [address] [place] [address] Mar, Acquired hypothyroidism E03. 9 ; Chronic UTI N39.0 ; Screening cholesterol level Z13.220 and Screening for diabetes mellitus Z13.1 [facility] [address] [facility] [id number] [address] [place] [address] Jan, Complicated urinary tract in fection N39.0 [facility] [address] [facility] [id number] [address] [place] [phone] Jan, Complicated urinary tract in fection N39.0 and Vaginal candidiasis B37.3 [facility] [address] [id number] [address] [place] [address] 19 Dec, 2016 Dysuria R30.0 and Acute cyst itis with hematuria N30.01 [facility] [address] [id number] [address] [place] [address] 10 Dec, 2016 Dysuria R30.0 [facility] [address] [id number] [address] [place] [id number] 09 Dec, 2016 [facility] [address] [id number] [address] [place] [address] Dec, Dysuria R30.0 and Acute cyst itis with hematuria N30.01 [facility] [address] [id number] [place] [id number] 27 Nov, 2016 Encounter for immunization Z 23 [facility] [address] [id number] [address] [place] [address] [id number] Sep, Dental examination Z01.20 [facility] [address] [id number] [address] [place] [address] Aug, Visit for TB skin test Z11.1 [facility] [address] [id number] [address] [place] [address] [id number] Dec, Dental examination Z01.20 [facility] [address] [id number] [address] [place] [id number] 10 Nov, 2015 Dysuria R30.0 [facility] [address] [id number] [address] [place] [id number] May, Dental examination Z01.20 [facility] [address] [id number] [address] [place] [address] [id number] Nov, Dental examination V72.2 [facility] [address] [id number] [address] [place] [id number] 14 Jun, 2014 [facility] [address] [id number] [address] [place] [phone] Jun, [facility] [address] [id number] [address] [place] [address], [place] [address] May, [facility] [address] [id number] [address] [place] [address], [place] [address] May, [facility] [address] [id number] [address] [place] [address], [place] [address] Mar, [facility] [address] [id number] [address] [place] [address], [place] [address] Mar, [facility] [address] [id number] [address] [place] [address], [place] [address] Mar, [facility] [address] [id number] [address] [place] [address], [place] [address] Mar, [facility] [address] [id number] [address] [place] [address], [place] [address] Mar, [facility] [address] [id number] [address] [place] [address], [place] [address] Feb, [facility] [address] [id number] [address] [place] [address], [place] [address] Feb, [facility] [address] [id number] [address] [place] [address], [place] [address] Feb, [facility] [address] [id number] [address] [place] [address], [place] [address] Feb, [facility] [address] [id number] [address] [place] [address], [place] [address] Feb, [facility] [address] [id number] [address] [place] [address], [place] [address] Feb, [facility] [address] [id number] [address] [place] [address], [place] [address] Jan, [facility] [address] [id number] [address] [place] [address], [place] [address] Jan, [facility] [address] [id number] [address] [place] [phone] Jan, [facility] [address] [id number] [address] [place] [phone] Jan, [facility] [address] [id number] [address] [place] [address] Jan, [facility] [address] [id number] [address] [place] [address] Jan, [facility] [address] [id number] [address] [place] [address] Jan, [facility] [address] [id number] [address] [place] [address] Dec, [facility] [address] [id number] [address] [place] [address] Dec, [facility] [address] [id number] [address] [place] [address] Dec, [facility] [address] [id number] [address] [place] [address] Dec, [facility] [address] [id number] [address] [place] [address] Feb, [facility] [address] [id number] [address] [place] [address] Feb, IMMUNIZATIONS No Known Immunizations SOCIAL HISTORY Never Assessed REASON FOR VISIT [facility] [place] VITAL SIGNS MEDICATIONS Unknown [...]
--- OUTSIDE RECORDS SUMMARY | 2019-10-29 17:29 | XMS REPORT ---
Author Author Shruti CORBIN Organization [facility] Address [address] [place] [address] Care Team Providers Care Agricultural Education Instructor Name Role Phone MATTHIEU CORBIN Unavailable PROBLEMS Type Condition ICD9-CM Code UIP88-TO Code Onset Dates Condition S tatus SNOMED Code Problem Postmenopausal vaginal bleeding N95.0 Active 33271909 Problem Overweight (BMI 25.0-29.9) E66.3 Act murphy 684574946 Problem Hyperthyroidism E05.90 Active 3448 6009 Problem Vitamin D deficiency E55.9 Active 09542470 Problem Chronic UTI N39.0 Active 69561637 6 ALLERGIES Substance Reaction Event Type Date Status Cipro Unknown Drug Allergy Sep, Active Penicillins Unknown Non Drug Allergy Sep, Active ENCOUNTERS Encounter Location Date Diagnosis [facility] [address] [place] [id number] [address] [place] [address] Oct, [facility] [address] [id number] [address] [place] [address] Sep, [place] [id number] [place] [id number] [place] [address] Sep, Encounter for well woman exa m with routine gynecological exam Z01.419 ; Screening for STDs (sexually transmitted diseases) Z11.3 ; Overweight (BMI 25.0-29.9) E66.3 and Chronic UTI N39.0 [facility] [address] [place] [id number] [address] [place] [address] Aug, Hyperthyroidism E05.90 ; Chr onic UTI N39.0 ; Vitamin D deficiency E55.9 ; Postmenopausal vaginal bleeding N95.0 and Overweight (BMI 25.0-29.9) E66.3 [facility] [address] [place] [address] [id number] [address] [place] [address] July, [facility] [address] [facility] [id number] [address] [place] [address] May, [facility] [address] [facility] [id number] [address] [place] [address] May, Hyperthyroidism E05.90 [facility] [address] [facility] [id number] [address] [place] [address] May, Hyperthyroidism E05.90 [facility] [address] [facility] [id number] [address] [place] [address] May, Hyperthyroidism E05.90 [facility] [address] [facility] [id number] [address] [place] [address] May, [facility] [address] [facility] [id number] [address] [place] [address] May, [facility] [address] [facility] [id number] [address] [place] [address] May, Hyperthyroidism E05.90 ; Keshia ast cancer screening by mammogram Z12.31 and Vitamin D deficiency E55.9 [facility] [address] [facility] [id number] [address] [place] [address] May, [facility] [address] [facility] [id number] [address] [place] [address] May, Acquired hypothyroidism E03. 9 ; Chronic UTI N39.0 ; Screening cholesterol level Z13.220 and Screening for diabetes mellitus Z13.1 [facility] [address] [facility] [id number] [address] [place] [address] Mar, Acquired hypothyroidism E03. 9 ; Chronic UTI N39.0 ; Screening cholesterol level Z13.220 and Screening for diabetes mellitus Z13.1 [facility] [address] [facility] [id number] [address] [place] [address] Jan, Complicated urinary tract in fection N39.0 [facility] [address] [facility] [id number] [address] [place] [address] Jan, Complicated urinary tract in fection N39.0 and Vaginal candidiasis B37.3 [facility] [address] [id number] [address] [place] [address] Dec, Dysuria R30.0 and Acute cyst itis with hematuria N30.01 [facility] [address] [id number] [address] [place] [address] Dec, Dysuria R30.0 [facility] [address] [id number] [address] [place] [address] Dec, [facility] [address] [id number] [address] [place] [address] Dec, Dysuria R30.0 and Acute cyst itis with hematuria N30.01 [facility] [address] [id number] [place] [address] [id number] 27 Nov, 2016 Encounter for immunization Z 23 [facility] [address] [id number] [address] [place] [id number] Sep, Dental examination Z01.20 [facility] [address] [facility] [id number] [address] [place] [address] Aug, Visit for TB skin test Z11.1 [facility] [address] [id number] [address] [place] [id number] Dec, Dental examination Z01.20 [facility] [address] [id number] [address] [place] [address] 10 Nov, 2015 Dysuria R30.0 [facility] [address] [id number] [address] [place] [id number] May, Dental examination Z01.20 [facility] [address] [id number] [address] [place] [address] [id number] 17 Nov, 2014 Dental examination V72.2 [facility] [address] [id number] [address] [place] [address] 14 Jun, 2014 [facility] [address] [id number] [address] [place] [address], [place] [address] Jun, [facility] [address] [id number] [address] [place] [address], [place] [address] May, [facility] [address] [id number] [address] [place] [address], [place] [address] May, [facility] [address] [id number] [address] [place] [address], [place] [address] Mar, [facility] [address] [id number] [address] [place] [address], [place] [address] Mar, [facility] [address] [id number] [address] [place] [address], [place] [address] Mar, [facility] [address] [id number] [address] [place] [address], [place] [address] Mar, [facility] [address] [id number] [address] [place] [address], [place] [address] Mar, [facility] [address] [id number] [address] [place] [address], [place] [address] Feb, [facility] [address] [id number] [address] [place] [address], [place] [address] Feb, [facility] [address] [id number] [address] [place] [address], [place] [address] Feb, [facility] [address] [id number] [address] [place] [address], [place] [address] Feb, [facility] [address] [id number] [address] [place] [address], [place] [address] Feb, [facility] [address] [id number] [address] [place] [address], [place] [address] Feb, [facility] [address] [id number] [address] [place] [address], [place] [address] Jan, [facility] [address] [id number] [address] [place] [address] [address] Jan, [facility] [address] [id number] [address] [place] [address] Jan, [facility] [address] [id number] [address] [place] [address] Jan, [facility] [address] [id number] [address] [place] [address] Jan, [facility] [address] [id number] [address] [place] [address] Jan, [facility] [address] [id number] [address] [place] [address] Jan, [facility] [address] [id number] [address] [place] [address] Dec, [facility] [address] [id number] [address] [place] [address] Dec, [facility] [address] [id number] [address] [place] [address] Dec, [facility] [address] [id number] [address] [place] [address] Dec, [facility] [address] [id number] [address] [place] [address] Feb, [facility] [address] [id number] [address] [place] [address] Feb, IMMUNIZATIONS No Known Immunizations SOCIAL HISTORY Never Assessed REASON FOR VISIT Annual physical (female)., also taking Mannose OTC, Thyrovanz thyroid supp-awood s PLAN OF CARE Activity Details Follow Up 6 Months, prn Reason:chm Pending Test PAP REFLEX TO HPV IF ASCUS VITAL SIGNS Height 67 in 2017-10-24 Weight 181.0 lbs 2017-10-24 Temperature 98.3 degrees Fahrenheit 2017-10-24 Heart Rate 71 bpm 2017-10-24 Respiratory Rate 18 2017-10-24 BMI 28.35 kg/m2 2017-10-24 Blood pressure systolic 110 mmHg 2017-10-24 Blood pressure diastolic 64 mmHg 2017-10-24 MEDICATIONS Medication Instructions Dosage Frequency Start Date End Date Duration S dick Vitamin D 1000 UNIT Orally Once a day 1 tablet 24h Active Macrodantin 50 MG Orally Once a day 1 capsule with food or milk 24h Active RESULTS No Results PROCEDURES Procedure Date Ordered Result Body Site No Charge October 24, 2017 CULTURE, BACTERIA, OTHER October 24, 2017 Bacterial Vaginosis In House October 24, 2017 TRICHOMONAS ASSAY W/OPTIC October 24, 2017 SPECIMEN HANDLING October 24, 2017 INSTRUCTIONS MEDICATIONS ADMINISTERED No Known Medications MEDICAL [...]
--- OUTSIDE RECORDS SUMMARY | 2019-10-29 17:29 | XMS REPORT ---
Author Author Shruti RAMOS Organization [facility] Address [address] [place] [address] Care Team Providers Care Therapy Tech Name Role Phone KHUSHBU RAMOS Unavailable PROBLEMS Type Condition ICD9-CM Code PWQ35-EG Code Onset Dates Condition S tatus SNOMED Code Problem Postmenopausal vaginal bleeding N95.0 Active 60928932 Problem Overweight (BMI 25.0-29.9) E66.3 Act murphy 161572441 Problem Hyperthyroidism E05.90 Active 3448 6009 Problem Vitamin D deficiency E55.9 Active 39778697 Problem Chronic UTI N39.0 Active 61431894 6 ALLERGIES No Information ENCOUNTERS Encounter Location Date Diagnosis [place] [address] [address] Dec, Encounter for immunization Z 23 [place] [address] [address] Oct, [place] [address] [address] Sep, [place] [address] [address] Sep, Encounter for well woman exa m with routine gynecological exam Z01.419 ; Screening for STDs (sexually transmitted diseases) Z11.3 ; Overweight (BMI 25.0-29.9) E66.3 and Chronic UTI N39.0 [place] [address] [address] Aug, Hyperthyroidism E05.90 ; Chr onic UTI N39.0 ; Vitamin D deficiency E55.9 ; Postmenopausal vaginal bleeding N95.0 and Overweight (BMI 25.0-29.9) E66.3 [place] [address] [place] [id number] [address] [place] [address] July, [facility] [address] [facility] [id number] [address] [address] May, [facility] [address] [facility] [id number] [address] [place] [address] May, Hyperthyroidism E05.90 [facility] [address] [facility] [id number] [address] [place] [address] May, Hyperthyroidism E05.90 [facility] [address] [facility] [id number] [address] [place] [address] May, Hyperthyroidism E05.90 [facility] [address] [facility] [id number] [address] [place] [address] May, [facility] [address] [facility] [id number] [address] [place] [address] May, [facility] [address] [facility] [id number] [address] [place] [address] May, Hyperthyroidism E05.90 ; Keshia ast cancer screening by mammogram Z12.31 and Vitamin D deficiency E55.9 [facility] [address] [facility] [id number] [address] [address] May, [facility] [address] [facility] [id number] [address] [place] [address] May, Acquired hypothyroidism E03. 9 ; Chronic UTI N39.0 ; Screening cholesterol level Z13.220 and Screening for diabetes mellitus Z13.1 [facility] [address] [facility] [id number] [address] [place] [address] Mar, Acquired hypothyroidism E03. 9 ; Chronic UTI N39.0 ; Screening cholesterol level Z13.220 and Screening for diabetes mellitus Z13.1 [facility] [address] [facility] [id number] [address] [place] [address] Jan, Complicated urinary tract in fection N39.0 [facility] [address] [id number] [address] [place] [address] Jan, Complicated urinary tract in fection N39.0 and Vaginal candidiasis B37.3 [facility] [address] [id number] [address] [place] [address] Dec, Dysuria R30.0 and Acute cyst itis with hematuria N30.01 [facility] [address] [id number] [address] [place] [address] Dec, Dysuria R30.0 [facility] [address] [id number] [address] [place] [address] Dec, [facility] [address] [facility] [id number] [address] [place] [address] Dec, Dysuria R30.0 and Acute cyst itis with hematuria N30.01 [facility] [address] [facility] [id number] [place] [address] [id number] Nov, Encounter for immunization Z 23 [facility] [id number] [place] [address] [id number] Sep, Dental examination Z01.20 [facility] [address] [facility] [id number] [address] [place] [address] Aug, Visit for TB skin test Z11.1 [facility] [address] [id number] [address] [place] [id number] Dec, Dental examination Z01.20 [facility] [address] [id number] [address] [place] [address] 10 Nov, 2015 Dysuria R30.0 [facility] [address] [id number] [address] [place] [address] [id number] May, Dental examination Z01.20 [facility] [address] [id number] [address] [place] [address] [id number] Nov, Dental examination V72.2 [facility] [address] [facility] [id number] [address] [address] Jun, [facility] [address] [id number] [address] [place] [address], [place] [address] Jun, [facility] [address] [id number] [address] [place] [address], [place] [address] May, [facility] [address] [id number] [address] [place] [address], [place] [address] May, [facility] [address] [id number] [address] [place] [address], [place] [address] Mar, [facility] [address] [id number] [address] [place] [address], [place] [address] Mar, [facility] [address] [id number] [address] [place] [address], [place] [address] Mar, [facility] [address] [id number] [address] [place] [address], [place] [address] Mar, [facility] [address] [id number] [address] [place] [address], [place] [address] Mar, [facility] [address] [id number] [address] [place] [address], [place] [address] Feb, [facility] [address] [id number] [address] [place] [address], [place] [address] Feb, [facility] [address] [id number] [address] [place] [address], [place] [address] Feb, [facility] [address] [id number] [address] [place] [address], [place] [address] Feb, [facility] [address] [id number] [address] [place] [address], [place] [address] Feb, [facility] [address] [id number] [address] [place] [address], [place] [address] Feb, [facility] [address] [id number] [address] [place] [address], [place] [address] Jan, [facility] [address] [id number] [address] [place] [phone] Jan, [facility] [address] [id number] [address] [place] [place] [phone] Jan, [facility] [address] [id number] [address] [place] [address] Jan, [facility] [address] [id number] [address] [place] [address] Jan, [facility] [address] [id number] [address] [place] [address] Jan, [facility] [address] [id number] [address] [place] [address] Jan, [facility] [address] [id number] [address] [place] [address] Dec, [facility] [address] [id number] [address] [place] [address] Dec, [facility] [address] [id number] [address] [place] [address] Dec, [facility] [address] [id number] [address] [place] [address] Dec, [facility] [address] [id number] [address] [place] [address] Feb, [facility] [address] [id number] [address] [place] [address] Feb, IMMUNIZATIONS Vaccine Route Administration Date Status FLULAVAL QUAD 0.5ML (6 MO & UP) 2017 IM Intramuscular Jan 20 18 Administered SOCIAL HISTORY Never Assessed REASON FOR VISIT FLU SHOT PLAN OF CARE VITAL SIGNS MEDICATIONS Unknown Medications RESULTS No Results PROCEDURES Procedure Date Ordered Result Body Site FLULAVAL QUAD 0.5ML (6 MO AND UP) 2017Jan 20, 2018 SINGLE IMMUNIZATION ADMIN Jan 20, 2018 INSTRUCTIONS MEDICATIONS ADMINISTERED No Known Medications MEDICAL [...]
--- OUTSIDE RECORDS SUMMARY | 2019-10-29 17:29 | XMS REPORT ---
Author Author Shruti CORBIN Organization [facility] Address [address] [place] [address] Care Team Providers Care Metal Products Viewer Name Role Phone MATTHIEU CORBIN Unavailable PROBLEMS Type Condition ICD9-CM Code [id number] Code Onset Dates Condition S tatus SNOMED Code Problem Postmenopausal vaginal bleeding N95.0 Active 06239464 Problem Overweight (BMI 25.0-29.9) E66.3 Act murphy 011546530 Problem Hyperthyroidism E05.90 Active 3448 6009 Problem Vitamin D deficiency E55.9 Active 57690103 Problem Chronic UTI N39.0 Active 16058654 6 ALLERGIES No Information ENCOUNTERS Encounter Location Date Diagnosis [place] [id number] [place] [phone] Oct, [facility] [address] [facility] [id number] [address] [place] [phone] Sep, [place] [address] [address] [place] [id number] [address] [place] [phone] Sep, Encounter for well woman exa m with routine gynecological exam Z01.419 ; Screening for STDs (sexually transmitted diseases) Z11.3 ; Overweight (BMI 25.0-29.9) E66.3 and Chronic UTI N39.0 [facility] [address] [facility] [id number] [address] [place] [phone] Aug, Hyperthyroidism E05.90 ; Chr onic UTI N39.0 ; Vitamin D deficiency E55.9 ; Postmenopausal vaginal bleeding N95.0 and Overweight (BMI 25.0-29.9) E66.3 [facility] [address] [facility] [id number] [address] [place] [phone] July, [place] [address] [place] [id number] [address] [place] [phone] May, [facility] [address] [facility] [id number] [address] [place] [phone] May, Hyperthyroidism E05.90 [facility] [address] [facility] [id number] [address] [place] [phone] May, Hyperthyroidism E05.90 [facility] [address] [facility] [id number] [address] [place] [phone] May, Hyperthyroidism E05.90 [facility] [address] [facility] [id number] [address] [place] [phone] May, [facility] [address] [facility] [id number] [address] [place] [phone] May, [facility] [address] [place] [id number] [place] [phone] May, Hyperthyroidism E05.90 ; Keshia ast cancer screening by mammogram Z12.31 and Vitamin D deficiency E55.9 [facility] [address] [facility] [id number] [address] [place] [phone] May, [facility] [address] [facility] [id number] [address] [place] [phone] May, Acquired hypothyroidism E03. 9 ; Chronic UTI N39.0 ; Screening cholesterol level Z13.220 and Screening for diabetes mellitus Z13.1 [facility] [address] [facility] [id number] [address] [place] [phone] Mar, Acquired hypothyroidism E03. 9 ; Chronic UTI N39.0 ; Screening cholesterol level Z13.220 and Screening for diabetes mellitus Z13.1 [facility] [address] [facility] [id number] [address] [place] [phone] Jan, Complicated urinary tract in fection N39.0 [facility] [address] [place] [id number] [address] [place] [phone] Jan, Complicated urinary tract in fection N39.0 and Vaginal candidiasis B37.3 [facility] [address] [id number] [address] [place] [phone] Dec, Dysuria R30.0 and Acute cyst itis with hematuria N30.01 [facility] [address] [id number] [address] [place] [phone] 10 Dec, 2016 Dysuria R30.0 [facility] [address] [id number] [address] [place] [phone] Dec, [facility] [address] [id number] [address] [place] [phone] Dec, Dysuria R30.0 and Acute cyst itis with hematuria N30.01 [facility] [address] [id number] [place] [address] [id number] 27 Nov, 2016 Encounter for immunization Z 23 [facility] [address] [id number] [address] [place] [phone] Sep, Dental examination Z01.20 [facility] [address] [id number] [address] [place] [phone] Aug, Visit for TB skin test Z11.1 [facility] [address] [id number] [address] [place] [address] [id number] Dec, Dental examination Z01.20 [facility] [address] [id number] [address] [place] [phone] Nov, Dysuria R30.0 [facility] [address] [id number] [address] [place] [address] [id number] May, Dental examination Z01.20 [facility] [address] [id number] [address] [place] [address] [id number] Nov, Dental examination V72.2 [facility] [address] [id number] [address] [place] [phone] 14 Jun, 2014 [facility] [address] [facility] [id number] [address] [place] [phone] Jun, [facility] [address] [id number] [address] [place] [address], [place] [address] May, [facility] [address] [id number] [address] [place] [address], [place] [address] May, [facility] [address] [id number] [address] [place] [address], [place] [address] Mar, [facility] [address] [id number] [address] [place] [address], [place] [address] Mar, [facility] [address] [id number] [address] [place] [address], [place] [address] Mar, [facility] [address] [id number] [address] [place] [address], [place] [address] Mar, [facility] [address] [id number] [address] [place] [address], [place] [address] Mar, [facility] [address] [id number] [address] [place] [address], [place] [address] Feb, [facility] [address] [id number] [address] [place] [address], [place] [address] Feb, [facility] [address] [id number] [address] [place] [address], [place] [address] Feb, [facility] [address] [id number] [address] [place] [address], [place] [address] Feb, [facility] [address] [id number] [address] [place] [phone] Feb, [facility] [address] [id number] [address] [place] [address], [place] [address] Feb, [facility] [address] [id number] [address] [place] [address], [place] [address] Jan, [facility] [address] [id number] [address] [place] [phone] Jan, [facility] [address] [id number] [address] [place] [phone] Jan, [facility] [address] [id number] [address] [place] [phone] Jan, [facility] [address] [id number] [address] [place] [phone] Jan, [facility] [address] [id number] [address] [place] [phone] Jan, [facility] [address] [id number] [address] [place] [phone] Jan, [facility] [address] [id number] [address] [place] [phone] Dec, [facility] [address] [id number] [address] [place] [phone] Dec, [facility] [address] [id number] [address] [place] [phone] Dec, [facility] [address] [id number] [address] [place] [phone] Dec, [facility] [address] [id number] [address] [place] [phone] Feb, [facility] [address] [id number] [address] [place] [phone] Feb, IMMUNIZATIONS No Known Immunizations SOCIAL HISTORY [...]
--- OUTSIDE RECORDS SUMMARY | 2019-10-29 17:29 | XMS REPORT ---
Author Author Shruti CORBIN Organization [facility] Address [address] [place] [address] Care Team Providers Care Property Assistant Name Role Phone MATTHIEU CORBIN Unavailable PROBLEMS Type Condition ICD9-CM Code WKP72-XT Code Onset Dates Condition S tatus SNOMED Code Problem Postmenopausal vaginal bleeding N95.0 Active 22194370 Problem Overweight (BMI 25.0-29.9) E66.3 Act murphy 943712880 Problem Hyperthyroidism E05.90 Active 3448 6009 Problem Vitamin D deficiency E55.9 Active 55828750 Problem Chronic UTI N39.0 Active 45614722 6 ALLERGIES No Information ENCOUNTERS Encounter Location Date Diagnosis [place] [id number] [place] [phone] Oct, [facility] [address] [facility] [id number] [address] [place] [phone] Sep, [place] [address] [address] [place] [id number] [address] [place] [phone] Sep, Encounter for well woman exa m with routine gynecological exam Z01.419 ; Screening for STDs (sexually transmitted diseases) Z11.3 ; Overweight (BMI 25.0-29.9) E66.3 and Chronic UTI N39.0 [facility] [address] [facility] [id number] [address] [place] [phone] Aug, Hyperthyroidism E05.90 ; Chr onic UTI N39.0 ; Vitamin D deficiency E55.9 ; Postmenopausal vaginal bleeding N95.0 and Overweight (BMI 25.0-29.9) E66.3 [facility] [address] [facility] [id number] [address] [place] [phone] July, [place] [address] [place] [id number] [address] [place] [phone] May, [facility] [address] [facility] [id number] [address] [place] [phone] May, Hyperthyroidism E05.90 [facility] [address] [facility] [id number] [address] [place] [phone] May, Hyperthyroidism E05.90 [facility] [address] [facility] [id number] [address] [place] [phone] May, Hyperthyroidism E05.90 [facility] [address] [facility] [id number] [address] [place] [phone] May, [facility] [address] [facility] [id number] [address] [place] [phone] May, [facility] [address] [place] [id number] [place] [phone] May, Hyperthyroidism E05.90 ; Keshia ast cancer screening by mammogram Z12.31 and Vitamin D deficiency E55.9 [facility] [address] [facility] [id number] [address] [place] [phone] May, [facility] [address] [facility] [id number] [address] [place] [phone] May, Acquired hypothyroidism E03. 9 ; Chronic UTI N39.0 ; Screening cholesterol level Z13.220 and Screening for diabetes mellitus Z13.1 [facility] [address] [facility] [id number] [address] [place] [phone] Mar, Acquired hypothyroidism E03. 9 ; Chronic UTI N39.0 ; Screening cholesterol level Z13.220 and Screening for diabetes mellitus Z13.1 [facility] [address] [facility] [id number] [address] [place] [phone] Jan, Complicated urinary tract in fection N39.0 [facility] [address] [place] [id number] [address] [place] [phone] Jan, Complicated urinary tract in fection N39.0 and Vaginal candidiasis B37.3 [facility] [address] [id number] [address] [place] [phone] Dec, Dysuria R30.0 and Acute cyst itis with hematuria N30.01 [facility] [address] [id number] [address] [place] [phone] 10 Dec, 2016 Dysuria R30.0 [facility] [address] [id number] [address] [place] [phone] Dec, [facility] [address] [id number] [address] [place] [phone] Dec, Dysuria R30.0 and Acute cyst itis with hematuria N30.01 [facility] [address] [id number] [place] [address] [id number] 27 Nov, 2016 Encounter for immunization Z [address] [facility] [address] [id number] [address] [place] [address] [id number] Sep, Dental examination Z01.20 [facility] [address] [id number] [address] [place] [phone] Aug, Visit for TB skin test Z11.[address] [facility] [address] [id number] [address] [place] [address] [id number] Dec, Dental examination Z01.20 [facility] [address] [id number] [address] [place] [phone] Nov, Dysuria R30.[address] [facility] [address] [id number] [address] [place] [address] [id number] May, Dental examination Z01.[address] [facility] [address] [id number] [address] [place] [address] [id number] Nov, Dental examination V72.2 [facility] [address] [id number] [address] [place] [phone] 14 Jun, 2014 [facility] [address] [facility] [id number] [address] [place] [phone] Jun, [facility] [address] [id number] [address] [place] [address], [place] [id number] May, [facility] [address] [id number] [address] [place] [address], [place] [id number] May, [facility] [address] [id number] [address] [place] [address], [place] [id number] Mar, [facility] [address] [id number] [address] [place] [address], [place] [id number] Mar, [facility] [address] [id number] [address] [place] [address], [place] [id number] Mar, [facility] [address] [id number] [address] [place] [address], [place] [id number] Mar, [facility] [address] [id number] [address] [place] [address], [place] [id number] Mar, [facility] [address] [id number] [address] [place] [address], [place] [id number] Feb, [facility] [address] [id number] [address] [place] [address], [place] [id number] Feb, [facility] [address] [id number] [address] [place] [address], [place] [id number] Feb, [facility] [address] [id number] [address] [place] [address], [place] [id number] Feb, [facility] [address] [id number] [address] [place] [phone] Feb, [facility] [address] [id number] [address] [place] [address], [place] [id number] Feb, [facility] [address] [id number] [address] [place] [address], [place] [id number] Jan, [facility] [address] [id number] [address] [place] [phone] Jan, [facility] [address] [id number] [address] [place] [phone] Jan, [facility] [address] [id number] [address] [place] [phone] Jan, [facility] [address] [id number] [address] [place] [phone] Jan, [facility] [address] [id number] [address] [place] [phone] Jan, [facility] [address] [id number] [address] [place] [phone] Jan, [facility] [address] [id number] [address] [place] [phone] Dec, [facility] [address] [id number] [address] [place] [phone] Dec, [facility] [address] [id number] [address] [place] [phone] Dec, [facility] [address] [id number] [address] [place] [phone] Dec, [facility] [address] [id number] [address] [place] [phone] Feb, [facility] [address] [id number] [address] [place] [phone] Feb, IMMUNIZATIONS No Known Immunizations SOCIAL HISTORY Never Assessed [facility] PLAN OF CARE VITAL SIGNS MEDICATIONS Unknown [...]
--- OUTSIDE RECORDS SUMMARY | 2019-10-29 17:29 | XMS REPORT ---
Author Author Shruti Doll Doctor Organization [facility] Address Unknown Phone Unavailable Care Team Providers Care Insurance Follow Up Rep Name Role Phone Migration, Doctor Unavailable Unavailable PROBLEMS Type Condition ICD9-CM Code [id number] Code Onset Dates Condition S tatus SNOMED Code Problem Overweight (BMI 25.0-29.9) E66.3 Act murphy 733554134 Problem Postmenopausal vaginal bleeding N95.0 Active 57101259 Problem Hyperthyroidism E05.90 Active 3448 6009 Problem Chronic UTI N39.0 Active 37759136 6 Problem Vitamin D deficiency E55.9 Active [id number] ALLERGIES No Information ENCOUNTERS Encounter Location Date Diagnosis [place] [address] [address] Dec, Encounter for immunization Z 23 [place] [address] [address] Oct, [place] [address] [address] Sep, [place] [address] [address] [place] [id number] [address] [place] [address] Sep, Encounter for well woman exa m with routine gynecological exam Z01.419 ; Screening for STDs (sexually transmitted diseases) Z11.3 ; Overweight (BMI 25.0-29.9) E66.3 and Chronic UTI N39.0 [place] [address] [address] [place] [id number] [address] [place] [address] Aug, Hyperthyroidism E05.90 ; Chr onic UTI N39.0 ; Vitamin D deficiency E55.9 ; Postmenopausal vaginal bleeding N95.0 and Overweight (BMI 25.0-29.9) E66.3 [place] [address] [address] [place] [id number] [address] [place] [phone] July, [place] [address] [address] [facility] [id number] [address] [place] [address] May, [facility] [address] [facility] [id number] [address] [place] [address] May, Hyperthyroidism E05.90 [facility] [address] [facility] [id number] [address] [place] [address] May, Hyperthyroidism E05.90 [facility] [address] [facility] [id number] [address] [place] [address] May, Hyperthyroidism E05.90 [facility] [address] [facility] [id number] [address] [place] [address] May, [facility] [address] [facility] [id number] [address] [place] [address] May, [facility] [address] [facility] [id number] [address] [place] [address] May, Hyperthyroidism E05.90 ; Keshia ast cancer screening by mammogram Z12.31 and Vitamin D deficiency E55.9 [facility] [address] [facility] [id number] [address] [place] [address] May, [facility] [address] [facility] [id number] [address] [place] [address] May, Acquired hypothyroidism E03. 9 ; Chronic UTI N39.0 ; Screening cholesterol level Z13.220 and Screening for diabetes mellitus Z13.1 [facility] [address] [facility] [id number] [address] [place] [address] Mar, Acquired hypothyroidism E03. 9 ; Chronic UTI N39.0 ; Screening cholesterol level Z13.220 and Screening for diabetes mellitus Z13.1 [facility] [address] [facility] [id number] [address] [place] [address] Jan, Complicated urinary tract in fection N39.0 [facility] [address] [facility] [id number] [address] [place] [phone] Jan, Complicated urinary tract in fection N39.0 and Vaginal candidiasis B37.3 [facility] [address] [id number] [address] [place] [phone] 19 Dec, 2016 Dysuria R30.0 and Acute cyst itis with hematuria N30.01 [facility] [address] [id number] [address] [place] [phone] 10 Dec, 2016 Dysuria R30.0 [facility] [address] [id number] [address] [place] [phone] 09 Dec, 2016 [facility] [address] [id number] [address] [place] [phone] Dec, Dysuria R30.0 and Acute cyst itis with hematuria N30.01 [facility] [address] [id number] [place] [address] [id number] 27 Nov, 2016 Encounter for immunization Z 23 [facility] [address] [id number] [address] [place] [id number] Sep, Dental examination Z01.20 [facility] [address] [id number] [address] [place] [phone] Aug, Visit for TB skin test Z11.1 [facility] [address] [id number] [address] [place] [id number] Dec, Dental examination Z01.20 [facility] [address] [id number] [address] [place] [phone] 10 Nov, 2015 Dysuria R30.0 [facility] [address] [id number] [address] [place] [address] [id number] May, Dental examination Z01.20 [facility] [address] [id number] [address] [place] [id number] Nov, Dental examination V72.2 [facility] [address] [id number] [address] [place] [phone] 14 Jun, 2014 [facility] [address] [id number] [address] [place] [phone] Jun, [facility] [address] [id number] [address] [place] [address], [place] [address] May, [facility] [address] [id number] [address] [place] [address], [place] [address] May, [facility] [address] [id number] [address] [place] [address], [place] [address] Mar, [facility] [address] [id number] [address] [place] [address], [place] [address] Mar, [facility] [address] [id number] [address] [place] [address], [place] [address] Mar, [facility] [address] [id number] [address] [place] [address], [place] [address] Mar, [facility] [address] [id number] [address] [place] [address], [place] [address] Mar, [facility] [address] [id number] [address] [place] [address], [place] [address] Feb, [facility] [address] [id number] [address] [place] [address], [place] [address] Feb, [facility] [address] [id number] [address] [place] [address], [place] [address] Feb, [facility] [address] [id number] [address] [place] [address], [place] [address] Feb, [facility] [address] [id number] [address] [place] [address], [place] [address] Feb, [facility] [address] [id number] [address] [place] [address], [place] [address] Feb, [facility] [address] [id number] [address] [place] [address], [place] [address] Jan, [facility] [address] [id number] [address] [place] [address], [place] [address] Jan, [facility] [address] [id number] [address] [place] [phone] Jan, [facility] [address] [id number] [address] [place] [address] Jan, [facility] [address] [id number] [address] [place] [phone] Jan, [facility] [address] [id number] [address] [place] [phone] Jan, [facility] [address] [id number] [address] [place] [address] Jan, [facility] [address] [id number] [address] [place] [address] Dec, [facility] [address] [id number] [address] [place] [address] Dec, [facility] [address] [id number] [address] [place] [address] Dec, [facility] [address] [id number] [address] [place] [phone] Dec, [facility] [address] [id number] [address] [place] [phone] Feb, [facility] [address] [id number] [address] [place] [address] Feb, IMMUNIZATIONS No Known Immunizations SOCIAL HISTORY Never Assessed REASON FOR VISIT PLAN OF CARE VITAL SIGNS MEDICATIONS Unknown Medications RESULTS No Results PROCEDURES Procedure Date Ordered Result Body Site TB INTRADERMAL TEST Jan 25, 2014 INSTRUCTIONS MEDICATIONS ADMINISTERED No Known Medications [...]
--- OUTSIDE RECORDS SUMMARY | 2019-10-29 17:29 | XMS REPORT ---
Author Author Shruti CORBIN Organization [facility] Address [address] [place] [address] Care Team Providers Care Lepidopterist Name Role Phone MATTHIEU OCRBIN Unavailable PROBLEMS Type Condition ICD9-CM Code [id number] Code Onset Dates Condition S tatus SNOMED Code Problem Postmenopausal vaginal bleeding N95.0 Active 88444441 Problem Overweight (BMI 25.0-29.9) E66.3 Act murphy 632623643 Problem Hyperthyroidism E05.90 Active 3448 6009 Problem Vitamin D deficiency E55.9 Active 44337769 Problem Chronic UTI N39.0 Active 84580326 6 ALLERGIES Substance Reaction Event Type Date Status Cipro Unknown Drug Allergy Aug, Active Penicillins Unknown Non Drug Allergy Aug, Active ENCOUNTERS Encounter Location Date Diagnosis [facility] [address] [place] [id number] [address] [place] [phone] Oct, [place] [id number] [address] [place] [phone] Sep, [place] [address] [address] [place] [id number] [address] [place] [address] Sep, Encounter for well woman exa m with routine gynecological exam Z01.419 ; Screening for STDs (sexually transmitted diseases) Z11.3 ; Overweight (BMI 25.0-29.9) E66.3 and Chronic UTI N39.0 [facility] [address] [place] [id number] [address] [place] [phone] Aug, Hyperthyroidism E05.90 ; Chr onic UTI N39.0 ; Vitamin D deficiency E55.9 ; Postmenopausal vaginal bleeding N95.0 and Overweight (BMI 25.0-29.9) E66.3 [place] [id number] [address] [place] [phone] July, [facility] [address] [facility] [id number] [address] [place] [phone] May, [facility] [address] [facility] [id number] [address] [place] [phone] May, Hyperthyroidism E05.90 [facility] [address] [facility] [id number] [address] [place] [address] May, Hyperthyroidism E05.90 [facility] [address] [facility] [id number] [address] [place] [phone] May, Hyperthyroidism E05.90 [facility] [address] [facility] [id number] [address] [place] [phone] May, [facility] [address] [facility] [id number] [address] [place] [phone] May, [facility] [address] [facility] [id number] [address] [place] [phone] May, Hyperthyroidism E05.90 ; Keshia ast cancer screening by mammogram Z12.31 and Vitamin D deficiency E55.9 [facility] [address] [facility] [id number] [address] [place] [phone] May, [facility] [address] [facility] [id number] [address] [place] [phone] May, Acquired hypothyroidism E03. 9 ; Chronic UTI N39.0 ; Screening cholesterol level Z13.220 and Screening for diabetes mellitus Z13.1 [facility] [address] [facility] [id number] [address] [place] [phone] Mar, Acquired hypothyroidism E03. 9 ; Chronic UTI N39.0 ; Screening cholesterol level Z13.220 and Screening for diabetes mellitus Z13.1 [facility] [address] [facility] [id number] [address] [place] [phone] Jan, Complicated urinary tract in fection N39.0 [facility] [address] [facility] [id number] [address] [place] [phone] Jan, Complicated urinary tract in fection N39.0 and Vaginal candidiasis B37.3 [facility] [address] [id number] [address] [place] [phone] Dec, Dysuria R30.0 and Acute cyst itis with hematuria N30.01 [facility] [address] [id number] [address] [place] [phone] Dec, Dysuria R30.0 [facility] [address] [id number] [address] [place] [phone] Dec, [facility] [address] [id number] [address] [place] [phone] Dec, Dysuria R30.0 and Acute cyst itis with hematuria N30.01 [facility] [address] [id number] [place] [address] [id number] 27 Nov, 2016 Encounter for immunization Z 23 [facility] [address] [id number] [address] [place] [address] [id number] Sep, Dental examination Z01.20 [facility] [address] [facility] [id number] [address] [place] [phone] Aug, Visit for TB skin test Z11.1 [facility] [address] [id number] [address] [place] [address] [id number] Dec, Dental examination Z01.20 [facility] [address] [id number] [address] [place] [id number] 10 Nov, 2015 Dysuria R30.0 [facility] [address] [id number] [address] [place] [address] [id number] May, Dental examination Z01.20 [facility] [address] [id number] [address] [place] [address] [id number] 17 Nov, 2014 Dental examination V72.2 [facility] [address] [id number] [address] [place] [id number] 14 Jun, 2014 [facility] [address] [id number] [address] [place] [address], [place] [address] Jun, [facility] [address] [id number] [address] [place] [address], [place] [address] May, [facility] [address] [id number] [address] [place] [address], [place] [address] May, [facility] [address] [id number] [address] [place] [address], [place] [address] Mar, [facility] [address] [id number] [address] [place] [address], [place] [address] Mar, [facility] [address] [id number] [address] [place] [address], [place] [phone] Mar, [facility] [address] [id number] [address] [place] [address], [place] [phone] Mar, [facility] [address] [id number] [address] [place] [address], [place] [address] Mar, [facility] [address] [id number] [address] [place] [address], [place] [address] Feb, [facility] [address] [id number] [address] [place] [address], [place] [phone] Feb, [facility] [address] [id number] [address] [place] [address], [place] [id number] Feb, [facility] [address] [id number] [address] [place] [address], [place] [id number] Feb, [facility] [address] [id number] [address] [place] [address], [place] [address] Feb, [facility] [address] [id number] [address] [place] [address], [place] [address] Feb, [facility] [address] [id number] [address] [place] [address], [place] [address] Jan, [facility] [address] [id number] [address] [place] [address] [address] Jan, [facility] [address] [id number] [address] [place] [phone] Jan, [facility] [address] [id number] [address] [place] [phone] Jan, [facility] [address] [id number] [address] [place] [phone] Jan, [facility] [address] [id number] [address] [place] [phone] Jan, [facility] [address] [id number] [address] [place] [phone] Jan, [facility] [address] [id number] [address] [place] [phone] Dec, [facility] [address] [id number] [address] [place] [phone] Dec, [facility] [address] [id number] [address] [place] [phone] Dec, [facility] [address] [id number] [address] [place] [phone] Dec, [facility] [address] [id number] [address] [place] [phone] Feb, [facility] [address] [id number] [address] [place] [phone] Feb, IMMUNIZATIONS No Known Immunizations SOCIAL HISTORY Never Assessed REASON FOR VISIT Thyroid-awoods PLAN OF CARE Activity Details Follow Up 1 Year, prn Reason:routine VITAL SIGNS Height 67 in 2017-09-15 Weight 187.2 lbs 2017-09-15 Temperature 97.9 degrees Fahrenheit 2017-09-15 Heart Rate 72 bpm 2017-09-15 Respiratory Rate 18 2017-09-15 BMI 29.32 kg/m2 2017-09-15 Blood pressure systolic 110 mmHg 2017-09-15 Blood pressure diastolic 65 mmHg 2017-09-15 MEDICATIONS Medication Instructions Dosage Frequency Start Date End Date Duration S tatus Multiple Vitamins - Orally Once a day 1 tablet 24h Not-Taking Vitamin D 1000 UNIT Orally Once a day 1 tablet 24h Active Fish Oil 1000 MG Orally Once a day 1 capsule 24h Not-Taking Magnesium 400 MG Orally Once a day 1 tablet with a meal 24h Not-Taking Selenium 100 MCG Orally Once a day 1 tablet 24h Not-Taking RESULTS No Results PROCEDURES No Known procedures INSTRUCTIONS MEDICATIONS ADMINISTERED No Known Medications MEDICAL (GENERAL) HISTORY Type Description Date Medical History back trouble - Medical History hypothryroidism - takes OTC thyrovans Medical History fainting (at the sight of blood) Medical History hives from penicillin Surgical History hysterectomy/cause of bleeding 07/2012 Surgical History section x 2 1999, 2000 Surgical History Right heel/foot 2016 Hospitalization History surgeries
--- OUTSIDE RECORDS SUMMARY | 2019-10-29 17:29 | XMS REPORT ---
Author Author Shruti Doll Doctor Organization [facility] Address Unknown Phone Unavailable Care Team Providers Care Insert Cutter Name Role Phone Migration, Doctor Unavailable Unavailable PROBLEMS Type Condition ICD9-CM Code [id number]-HS Code Onset Dates Condition S tatus SNOMED Code Problem Overweight (BMI 25.0-29.9) E66.3 Act murphy 148378486 Problem Postmenopausal vaginal bleeding N95.0 Active 86793521 Problem Hyperthyroidism E05.90 Active 3448 6009 Problem Chronic UTI N39.0 Active 60116016 6 Problem Vitamin D deficiency E55.9 Active [id number] ALLERGIES No Information ENCOUNTERS Encounter Location Date Diagnosis [place] [address] [address] Dec, Encounter for immunization Z 23 [place] [address] [address] Oct, [place] [address] [address] Sep, [place] [address] [place] [id number] [address] [place] [address] Sep, Encounter for well woman exa m with routine gynecological exam Z01.419 ; Screening for STDs (sexually transmitted diseases) Z11.3 ; Overweight (BMI 25.0-29.9) E66.3 and Chronic UTI N39.0 [place] [address] [place] [id number] [address] [place] [phone] Aug, Hyperthyroidism E05.90 ; Chr onic UTI N39.0 ; Vitamin D deficiency E55.9 ; Postmenopausal vaginal bleeding N95.0 and Overweight (BMI 25.0-29.9) E66.3 [place] [address] [place] [id number] [address] [place] [address] July, [place] [address] [address] [facility] [id number] [address] [place] [phone] May, [facility] [address] [facility] [id number] [address] [place] [address] May, Hyperthyroidism E05.90 [facility] [address] [facility] [id number] [address] [place] [phone] May, Hyperthyroidism E05.90 [facility] [address] [facility] [id number] [address] [place] [address] May, Hyperthyroidism E05.90 [facility] [address] [facility] [id number] [address] [place] [phone] May, [facility] [address] [facility] [id number] [address] [place] [phone] May, [facility] [address] [facility] [id number] [address] [place] [address] May, Hyperthyroidism E05.90 ; Keshia ast cancer screening by mammogram Z12.31 and Vitamin D deficiency E55.9 [facility] [address] [facility] [id number] [address] [place] [id number] May, [facility] [address] [facility] [id number] [address] [place] [phone] May, Acquired hypothyroidism E03. 9 ; Chronic UTI N39.0 ; Screening cholesterol level Z13.220 and Screening for diabetes mellitus Z13.1 [facility] [address] [facility] [id number] [address] [place] [address] Mar, Acquired hypothyroidism E03. 9 ; Chronic UTI N39.0 ; Screening cholesterol level Z13.220 and Screening for diabetes mellitus Z13.1 [facility] [address] [facility] [id number] [address] [place] [phone] Jan, Complicated urinary tract in fection N39.0 [facility] [address] [facility] [id number] [address] [place] [phone] Jan, Complicated urinary tract in fection N39.0 and Vaginal candidiasis B37.3 [facility] [address] [id number] [address] [place] [phone] 19 Dec, 2016 Dysuria R30.0 and Acute cyst itis with hematuria N30.01 [facility] [address] [id number] [address] [place] [phone] 10 Dec, 2016 Dysuria R30.0 [facility] [address] [id number] [address] [place] [phone] 09 Dec, 2016 [facility] [address] [id number] [address] [place] [phone] Dec, Dysuria R30.0 and Acute cyst itis with hematuria N30.01 [facility] [address] [id number] [place] [address] [id number] 27 Nov, 2016 Encounter for immunization Z 23 [facility] [address] [id number] [address] [place] [id number] Sep, Dental examination Z01.20 [facility] [address] [id number] [address] [place] [phone] Aug, Visit for TB skin test Z11.1 [facility] [address] [id number] [address] [place] [address] [id number] Dec, Dental examination Z01.20 [facility] [address] [id number] [address] [place] [phone] 10 Nov, 2015 Dysuria R30.0 [facility] [address] [id number] [address] [place] [address] [id number] May, Dental examination Z01.20 [facility] [address] [id number] [address] [place] [address] [id number] Nov, Dental examination V72.2 [facility] [address] [id number] [address] [place] [id number] 14 Jun, 2014 [facility] [address] [id number] [address] [place] [phone] Jun, [facility] [address] [id number] [address] [place] [address], [place] [address] May, [facility] [address] [id number] [address] [place] [address], [place] [address] May, [facility] [address] [id number] [address] [place] [address], [place] [address] Mar, [facility] [address] [id number] [address] [place] [address], [place] [address] Mar, [facility] [address] [id number] [address] [place] [address], [place] [address] Mar, [facility] [address] [id number] [address] [place] [address], [place] [address] Mar, [facility] [address] [id number] [address] [place] [address], [place] [address] Mar, [facility] [address] [id number] [address] [place] [address], [place] [address] Feb, [facility] [address] [id number] [address] [place] [address], [place] [address] Feb, [facility] [address] [id number] [address] [place] [address], [place] [address] Feb, [facility] [address] [id number] [address] [place] [address], [place] [address] Feb, [facility] [address] [id number] [address] [place] [address], [place] [address] Feb, [facility] [address] [id number] [address] [place] [address], [place] [address] Feb, [facility] [address] [id number] [address] [place] [address], [place] [address] Jan, [facility] [address] [id number] [address] [place] [address], [place] [address] Jan, [facility] [address] [id number] [address] [place] [phone] Jan, [facility] [address] [id number] [address] [place] [phone] Jan, [facility] [address] [id number] [address] [place] [phone] Jan, [facility] [address] [id number] [address] [place] [phone] Jan, [facility] [address] [id number] [address] [place] [phone] Jan, [facility] [address] [id number] [address] [place] [phone] Dec, [facility] [address] [id number] [address] [place] [phone] Dec, [facility] [address] [id number] [address] [place] [phone] Dec, [facility] [address] [id number] [address] [place] [phone] Dec, [facility] [address] [id number] [address] [place] [phone] Feb, [facility] [address] [id number] [address] [place] [phone] Feb, IMMUNIZATIONS No Known Immunizations SOCIAL HISTORY Never Assessed REASON FOR VISIT PLAN OF CARE VITAL SIGNS Height 67 in 2014-02-28 Weight 219.8 lbs 2014-02-28 Temperature 99.3 degrees Fahrenheit 2014-02-28 Heart Rate 84 bpm 2014-02-28 Respiratory Rate 18 2014-02-28 Blood pressure systolic 118 mmHg 2014-02-28 Blood pressure diastolic 84 mmHg 2014-02-28 MEDICATIONS Unknown Medications RESULTS No Results PROCEDURES Procedure Date Ordered Result Body Site URINALYSIS, AUTO, W/O SCOPE Feb 28, 2014 INSTRUCTIONS MEDICATIONS ADMINISTERED No Known [...]
--- OUTSIDE RECORDS SUMMARY | 2019-10-29 17:29 | XMS REPORT ---
Author Author Shruti Doll Doctor Organization [facility] Address Unknown Phone Unavailable Care Team Providers Care Full Stack Web Developer Name Role Phone Migration, Doctor Unavailable Unavailable PROBLEMS Type Condition ICD9-CM Code [id number] Code Onset Dates Condition S tatus SNOMED Code Problem Overweight (BMI 25.0-29.9) E66.3 Act murphy 044748535 Problem Postmenopausal vaginal bleeding N95.0 Active 74274540 Problem Hyperthyroidism E05.90 Active 3448 6009 Problem Chronic UTI N39.0 Active 77538639 6 Problem Vitamin D deficiency E55.9 Active 16389246 ALLERGIES No Information ENCOUNTERS Encounter Location Date Diagnosis [place] [address] [address] Dec, Encounter for immunization Z 23 [place] [address] [address] Oct, [place] [address] [address] Sep, [place] [address] [place] [id number] [address] [place] [address] Sep, Encounter for well woman exa m with routine gynecological exam Z01.419 ; Screening for STDs (sexually transmitted diseases) Z11.3 ; Overweight (BMI 25.0-29.9) E66.3 and Chronic UTI N39.0 [place] [address] [place] [id number] [address] [place] [phone] Aug, Hyperthyroidism E05.90 ; Chr onic UTI N39.0 ; Vitamin D deficiency E55.9 ; Postmenopausal vaginal bleeding N95.0 and Overweight (BMI 25.0-29.9) E66.3 [place] [address] [place] [id number] [address] [place] [phone] July, [place] [address] [address] [facility] [id number] [address] [place] [phone] May, [facility] [address] [facility] [id number] [address] [place] [address] May, Hyperthyroidism E05.90 [facility] [address] [facility] [id number] [address] [place] [address] May, Hyperthyroidism E05.90 [facility] [address] [facility] [id number] [address] [place] [phone] May, Hyperthyroidism E05.90 [facility] [address] [facility] [id number] [address] [place] [phone] May, [facility] [address] [facility] [id number] [address] [place] [phone] May, [facility] [address] [facility] [id number] [address] [place] [phone] May, Hyperthyroidism E05.90 ; Keshia ast cancer screening by mammogram Z12.31 and Vitamin D deficiency E55.9 [facility] [address] [facility] [id number] [address] [place] [phone] May, [facility] [address] [facility] [id number] [address] [place] [phone] May, Acquired hypothyroidism E03. 9 ; Chronic UTI N39.0 ; Screening cholesterol level Z13.220 and Screening for diabetes mellitus Z13.1 [facility] [address] [facility] [id number] [address] [place] [phone] Mar, Acquired hypothyroidism E03. 9 ; Chronic UTI N39.0 ; Screening cholesterol level Z13.220 and Screening for diabetes mellitus Z13.1 [facility] [address] [facility] [id number] [address] [place] [phone] Jan, Complicated urinary tract in fection N39.0 [facility] [address] [facility] [id number] [address] [place] [phone] Jan, Complicated urinary tract in fection N39.0 and Vaginal candidiasis B37.3 [facility] [address] [id number] [address] [place] [phone] 19 Dec, 2016 Dysuria R30.0 and Acute cyst itis with hematuria N30.01 [facility] [address] [id number] [address] [place] [phone] 10 Dec, 2016 Dysuria R30.0 [facility] [address] [id number] [address] [place] [phone] 09 Dec, 2016 [facility] [address] [id number] [address] [place] [phone] Dec, Dysuria R30.0 and Acute cyst itis with hematuria N30.01 [facility] [address] [id number] [place] [address] [id number] 27 Nov, 2016 Encounter for immunization Z 23 [facility] [address] [id number] [address] [place] [id number] Sep, Dental examination Z01.20 [facility] [address] [id number] [address] [place] [phone] Aug, Visit for TB skin test Z11.1 [facility] [address] [id number] [address] [place] [address] [id number] Dec, Dental examination Z01.20 [facility] [address] [id number] [address] [place] [phone] 10 Nov, 2015 Dysuria R30.0 [facility] [address] [id number] [address] [place] [address] [id number] May, Dental examination Z01.20 [facility] [address] [id number] [address] [place] [address] [id number] Nov, Dental examination V72.2 [facility] [address] [id number] [address] [place] [phone] 14 Jun, 2014 [facility] [address] [id number] [address] [place] [phone] Jun, [facility] [address] [id number] [address] [place] [address], [place] [address] May, [facility] [address] [id number] [address] [place] [address], [place] [address] May, [facility] [address] [id number] [address] [place] [address], [place] [address] Mar, [facility] [address] [id number] [address] [place] [address], [place] [address] Mar, [facility] [address] [id number] [address] [place] [address], [place] [address] Mar, [facility] [address] [id number] [address] [place] [address], [place] [address] Mar, [facility] [address] [id number] [address] [place] [address], [place] [address] Mar, [facility] [address] [id number] [address] [place] [address], [place] [address] Feb, [facility] [address] [id number] [address] [place] [address], [place] [address] Feb, [facility] [address] [id number] [address] [place] [address], [place] [address] Feb, [facility] [address] [id number] [address] [place] [address], [place] [address] Feb, [facility] [address] [id number] [address] [place] [address], [place] [phone] Feb, [facility] [address] [id number] [address] [place] [address], [place] [address] Feb, [facility] [address] [id number] [address] [place] [address], [place] [address] Jan, [facility] [address] [id number] [address] [place] [address], [place] [address] Jan, [facility] [address] [id number] [address] [place] [phone] Jan, [facility] [address] [id number] [address] [place] [phone] Jan, [facility] [address] [id number] [address] [place] [phone] Jan, [facility] [address] [id number] [address] [place] [phone] Jan, [facility] [address] [id number] [address] [place] [phone] Jan, [facility] [address] [id number] [address] [place] [phone] Dec, [facility] [address] [id number] [address] [place] [phone] Dec, [facility] [address] [id number] [address] [place] [phone] Dec, [facility] [address] [id number] [address] [place] [phone] Dec, [facility] [address] [id number] [address] [place] [phone] Feb, [facility] [address] [id number] [address] [place] [phone] Feb, IMMUNIZATIONS No Known Immunizations SOCIAL HISTORY Never Assessed REASON FOR VISIT [facility] PLAN OF CARE VITAL SIGNS MEDICATIONS Unknown [...]
--- OUTSIDE RECORDS SUMMARY | 2019-10-29 17:29 | XMS REPORT ---
Author Author Shruti CAMPBELL Organization [facility] Address [address] [place] [address] Care Team Providers Care Radar Signal Processing Engineer Name Role Phone PALOMO CAMPBELL Unavailable PROBLEMS Type Condition ICD9-CM Code RKG87-TA Code Onset Dates Condition S tatus SNOMED Code Problem Overweight (BMI 25.0-29.9) E66.3 Act murphy 103641218 Problem Postmenopausal vaginal bleeding N95.0 Active 19314247 Problem Hyperthyroidism E05.90 Active 3448 6009 Problem Chronic UTI N39.0 Active 73058134 6 Problem Vitamin D deficiency E55.9 Active [id number] ALLERGIES No Information ENCOUNTERS Encounter Location Date Diagnosis [place] [address] [address] Dec, Encounter for immunization Z 23 [place] [address] [address] Oct, [place] [address] [address] Sep, [place] [address] [address] Sep, Encounter for well woman exa m with routine gynecological exam Z01.419 ; Screening for STDs (sexually transmitted diseases) Z11.3 ; Overweight (BMI 25.0-29.9) E66.3 and Chronic UTI N39.0 [place] [address] [address] Aug, Hyperthyroidism E05.90 ; Chr onic UTI N39.0 ; Vitamin D deficiency E55.9 ; Postmenopausal vaginal bleeding N95.0 and Overweight (BMI 25.0-29.9) E66.3 [place] [address] [facility] [id number] [address] [place] [address] July, [facility] [address] [facility] [id number] [address] [place] [address] May, [facility] [address] [facility] [id number] [address] [place] [address] May, Hyperthyroidism E05.90 [facility] [address] [facility] [id number] [address] [place] [address] May, Hyperthyroidism E05.90 [facility] [address] [facility] [id number] [address] [place] [address] May, Hyperthyroidism E05.90 [facility] [address] [facility] [id number] [address] [place] [address] May, [facility] [address] [facility] [id number] [address] [place] [address] May, [facility] [address] [facility] [id number] [address] [place] [address] May, Hyperthyroidism E05.90 ; Keshia ast cancer screening by mammogram Z12.31 and Vitamin D deficiency E55.9 [facility] [address] [facility] [id number] [address] [place] [address] May, [facility] [address] [facility] [id number] [address] [place] [address] May, Acquired hypothyroidism E03. 9 ; Chronic UTI N39.0 ; Screening cholesterol level Z13.220 and Screening for diabetes mellitus Z13.1 [facility] [address] [facility] [id number] [address] [place] [address] Mar, Acquired hypothyroidism E03. 9 ; Chronic UTI N39.0 ; Screening cholesterol level Z13.220 and Screening for diabetes mellitus Z13.1 [facility] [address] [facility] [id number] [address] [place] [address] Jan, Complicated urinary tract in fection N39.0 [facility] [address] [id number] [address] [place] [address] Jan, Complicated urinary tract in fection N39.0 and Vaginal candidiasis B37.3 [facility] [address] [id number] [address] [place] [address] Dec, Dysuria R30.0 and Acute cyst itis with hematuria N30.01 [facility] [address] [id number] [address] [place] [address] Dec, Dysuria R30.0 [facility] [address] [id number] [address] [place] [address] Dec, [facility] [address] [facility] [id number] [address] [place] [address] Dec, Dysuria R30.0 and Acute cyst itis with hematuria N30.01 [facility] [address] [id number] [place] [id number] 27 Nov, 2016 Encounter for immunization Z 23 [facility] [address] [facility] [id number] [address] [place] [phone] Sep, Dental examination Z01.20 [facility] [address] [facility] [id number] [address] [place] [address] Aug, Visit for TB skin test Z11.1 [facility] [address] [id number] [address] [place] [address] [phone] Dec, Dental examination Z01.20 [facility] [address] [id number] [address] [place] [address] 10 Nov, 2015 Dysuria R30.0 [facility] [address] [id number] [address] [place] [address] [phone] May, Dental examination Z01.20 [facility] [address] [id number] [address] [place] [address] [id number] 17 Nov, 2014 Dental examination V72.2 [facility] [address] [id number] [address] [place] [address] 14 Jun, 2014 [facility] [address] [id number] [address] [place] [address], [place] [id number] Jun, [facility] [address] [id number] [address] [place] [address], [place] [id number] May, [facility] [address] [id number] [address] [place] [address], [place] [id number] May, [facility] [address] [id number] [address] [place] [address], [place] [id number] Mar, [facility] [address] [id number] [address] [place] [address], [place] [id number] Mar, [facility] [address] [id number] [address] [place] [address], [place] [id number] Mar, [facility] [address] [id number] [address] [place] [address], [place] [id number] Mar, [facility] [address] [id number] [address] [place] [address], [place] [id number] Mar, [facility] [address] [id number] [address] [place] [address], [place] [id number] Feb, [facility] [address] [id number] [address] [place] [address], [place] [id number] Feb, [facility] [address] [id number] [address] [place] [address], [place] [id number] Feb, [facility] [address] [id number] [address] [place] [address], [place] [id number] Feb, [facility] [address] [id number] [address] [place] [address], [place] [id number] Feb, [facility] [address] [id number] [address] [place] [address], [place] [id number] Feb, [facility] [address] [id number] [address] [place] [address], [place] [id number] Jan, [facility] [address] [id number] [address] [place] [address] Jan, [facility] [address] [id number] [address] [place] [address] Jan, [facility] [address] [id number] [address] [place] [address] Jan, [facility] [address] [id number] [address] [place] [address] Jan, [facility] [address] [id number] [address] [place] [address] Jan, [facility] [address] [id number] [address] [place] [address] Jan, [facility] [address] [id number] [address] [place] [address] Dec, [facility] [address] [id number] [address] [place] [address] Dec, [facility] [address] [id number] [address] [place] [address] Dec, [facility] [address] [id number] [address] [place] [address] Dec, [facility] [address] [id number] [address] [place] [address] Feb, [facility] [address] [id number] [address] [place] [phone] Feb, IMMUNIZATIONS No Known Immunizations SOCIAL HISTORY Never Assessed REASON FOR VISIT PLAN OF CARE VITAL SIGNS Height 67 in 2014-04-14 Weight 216 lbs 2014-04-14 Temperature 97.4 degrees Fahrenheit 2014-04-14 Heart Rate 76 bpm 2014-04-14 Respiratory Rate 16 2014-04-14 Blood pressure systolic 130 mmHg 2014-04-14 Blood pressure diastolic 80 mmHg 2014-04-14 MEDICATIONS Unknown Medications RESULTS No Results PROCEDURES [...]
--- OUTSIDE RECORDS SUMMARY | 2019-10-29 17:29 | XMS REPORT ---
Author Author Shruti Prasad Organization [facility] Address [address] [place] [address] Care Team Providers Care Collections Rep Name Role Phone NOEL Prsaad Unavailable PROBLEMS Type Condition ICD9-CM Code CLN47-MK Code Onset Dates Condition S tatus SNOMED Code Problem Overweight (BMI 25.0-29.9) E66.3 Act murphy 902322899 Problem Postmenopausal vaginal bleeding N95.0 Active 02247575 Problem Hyperthyroidism E05.90 Active 3448 6009 Problem Chronic UTI N39.0 Active 05075281 6 Problem Vitamin D deficiency E55.9 Active 44044985 ALLERGIES No Information ENCOUNTERS Encounter Location Date Diagnosis [place] [address] [address] Dec, Encounter for immunization Z 23 [place] [address] [phone] 08 Oct, 2017 [place] [address] [address] Sep, [place] [address] [address] Sep, Encounter for well woman exa m with routine gynecological exam Z01.419 ; Screening for STDs (sexually transmitted diseases) Z11.3 ; Overweight (BMI 25.0-29.9) E66.3 and Chronic UTI N39.0 [place] [address] [address] Aug, Hyperthyroidism E05.90 ; Chr onic UTI N39.0 ; Vitamin D deficiency E55.9 ; Postmenopausal vaginal bleeding N95.0 and Overweight (BMI 25.0-29.9) E66.3 [facility] [address] [id number] [address] [place] [phone] July, [facility] [address] [facility] [id number] [address] [place] [address] May, [facility] [address] [id number] [address] [place] [address] May, Hyperthyroidism E05.90 [facility] [address] [facility] [id number] [address] [place] [address] May, Hyperthyroidism E05.90 [facility] [address] [facility] [id number] [address] [place] [address] May, Hyperthyroidism E05.90 [facility] [address] [facility] [id number] [address] [place] [address] May, [facility] [address] [facility] [id number] [address] [place] [address] May, [facility] [address] [facility] [id number] [address] [place] [address] May, Hyperthyroidism E05.90 ; Keshia ast cancer screening by mammogram Z12.31 and Vitamin D deficiency E55.9 [facility] [address] [facility] [id number] [address] [place] [phone] May, [facility] [address] [facility] [id number] [address] [place] [address] May, Acquired hypothyroidism E03. 9 ; Chronic UTI N39.0 ; Screening cholesterol level Z13.220 and Screening for diabetes mellitus Z13.1 [facility] [address] [facility] [id number] [address] [place] [address] Mar, Acquired hypothyroidism E03. 9 ; Chronic UTI N39.0 ; Screening cholesterol level Z13.220 and Screening for diabetes mellitus Z13.1 [facility] [address] [facility] [id number] [address] [place] [phone] Jan, Complicated urinary tract in fection N39.0 [facility] [address] [id number] [address] [place] [phone] Jan, Complicated urinary tract in fection N39.0 and Vaginal candidiasis B37.3 [facility] [address] [id number] [address] [place] [address] Dec, Dysuria R30.0 and Acute cyst itis with hematuria N30.01 [facility] [address] [id number] [address] [place] [address] Dec, Dysuria R30.0 [facility] [address] [id number] [address] [place] [phone] Dec, [facility] [address] [id number] [address] [place] [phone] Dec, Dysuria R30.0 and Acute cyst itis with hematuria N30.01 [facility] [address] [id number] [place] [address] [id number] Nov, Encounter for immunization Z 23 [facility] [address] [facility] [id number] [address] [place] [address] [id number] Sep, Dental examination Z01.20 [facility] [address] [facility] [id number] [address] [place] [phone] Aug, Visit for TB skin test Z11.1 [facility] [address] [id number] [address] [place] [address] [id number] Dec, Dental examination Z01.20 [facility] [address] [id number] [address] [place] [phone] 10 Nov, 2015 Dysuria R30.0 [facility] [address] [id number] [address] [place] [address] [id number] May, Dental examination Z01.20 [facility] [address] [id number] [address] [place] [address] [id number] 17 Nov, 2014 Dental examination V72.2 [facility] [address] [id number] [address] [place] [phone] 14 Jun, 2014 [facility] [address] [id number] [address] [place] [address], [place] [address] Jun, [facility] [address] [id number] [address] [place] [address], [place] [address] May, [facility] [address] [id number] [address] [place] [address], [place] [address] May, [facility] [address] [id number] [address] [place] [address], [place] [address] Mar, [facility] [address] [id number] [address] [place] [address], [place] [address] Mar, [facility] [address] [id number] [address] [place] [address], [place] [address] Mar, [facility] [address] [id number] [address] [place] [address], [place] [address] Mar, [facility] [address] [id number] [address] [place] [address], [place] [address] Mar, [facility] [address] [id number] [address] [place] [address], [place] [address] Feb, [facility] [address] [id number] [address] [place] [address], [place] [address] Feb, [facility] [address] [id number] [address] [place] [address], [place] [address] Feb, [facility] [address] [id number] [address] [place] [address], [place] [address] Feb, [facility] [address] [id number] [address] [place] [address], [place] [address] Feb, [facility] [address] [id number] [address] [place] [address], [place] [address] Feb, [facility] [address] [id number] [address] [place] [address], [place] [address] Jan, [facility] [address] [id number] [address] [place] [phone] Jan, [facility] [address] [id number] [address] [place] [phone] Jan, [facility] [address] [id number] [address] [place] [phone] Jan, [facility] [address] [id number] [address] [place] [phone] Jan, [facility] [address] [id number] [address] [place] [phone] Jan, [facility] [address] [id number] [address] [place] [phone] Jan, [facility] [address] [id number] [address] [place] [address] Dec, [facility] [address] [id number] [address] [place] [address] Dec, [facility] [address] [id number] [address] [place] [phone] Dec, [facility] [address] [id number] [address] [place] [phone] Dec, [facility] [address] [id number] [address] [place] [phone] Feb, [facility] [address] [id number] [address] [place] [phone] Feb, IMMUNIZATIONS No Known Immunizations SOCIAL HISTORY [...]
--- OUTSIDE RECORDS SUMMARY | 2019-10-29 17:30 | XMS REPORT ---
Author Author Shruti CORBIN Organization [facility] [place] Address [address] [place] [address] Care Team Providers Care Flavoring Maker Name Role Phone SHAQUILLE MATTHIEU Unavailable PROBLEMS Type Condition ICD9-CM Code ZKT52-TR Code Onset Dates Condition S tatus SNOMED Code Problem Postmenopausal vaginal bleeding N95.0 Active 36282933 Problem Overweight (BMI 25.0-29.9) E66.3 Act murphy 996242770 Problem Hyperthyroidism E05.90 Active 3448 6009 Problem Vitamin D deficiency E55.9 Active 64017625 Problem Chronic UTI N39.0 Active [id number] 6 ALLERGIES No Information ENCOUNTERS Encounter Location Date Diagnosis [facility] [place] [id number] [place] [address] Sep, [facility] [place] [address] [facility] [id number] [address] [place] [address] Aug, Hyperthyroidism E05.90 ; Chr onic UTI N39.0 ; Vitamin D deficiency E55.9 ; Postmenopausal vaginal bleeding N95.0 and Overweight (BMI 25.0-29.9) E66.3 [facility] [place] [address] [facility] [id number] [address] [place] [address] July, [facility] [place] [address] [facility] [id number] [address] [place] [address] May, [facility] [place] [address] [place] [id number] [address] [place] [address] May, Hyperthyroidism E05.90 [facility] [place] [address] [place] [id number] [address] [place] [address] May, Hyperthyroidism E05.90 [facility] [place] [address] [place] [id number] [address] [place] [address] May, Hyperthyroidism E05.90 [facility] [place] [address] [facility] [id number] [address] [place] [address] May, [facility] [place] [address] [facility] [id number] [address] [place] [address] May, [facility] [place] [address] [facility] [id number] [address] [place] [address] May, Hyperthyroidism E05.90 ; Keshia ast cancer screening by mammogram Z12.31 and Vitamin D deficiency E55.9 [facility] [place] [address] [facility] [id number] [address] [place] [address] May, [place] [address] [facility] [id number] [address] [place] [address] May, Acquired hypothyroidism E03. 9 ; Chronic UTI N39.0 ; Screening cholesterol level Z13.220 and Screening for diabetes mellitus Z13.1 [place] [address] [place] [id number] [address] [place] [address] Mar, Acquired hypothyroidism E03. 9 ; Chronic UTI N39.0 ; Screening cholesterol level Z13.220 and Screening for diabetes mellitus Z13.1 [place] [address] [facility] [id number] [address] [place] [address] Jan, Complicated urinary tract in fection N39.0 [place] [address] [place] [id number] [address] [place] [address] Jan, Complicated urinary tract in fection N39.0 and Vaginal candidiasis B37.3 [place] [address] [facility] [id number] [address] [place] [address] Dec, Dysuria R30.0 and Acute cyst itis with hematuria N30.01 [place] [address] [place] [id number] [address] [place] [address] 10 Dec, 2016 Dysuria R30.0 [place] [address] [address] Dec, [facility] [place] [address] [id number] [address] [place] [address] Dec, Dysuria R30.0 and Acute cyst itis with hematuria N30.01 [facility] [address] [id number] [place] [address] [id number] 27 Nov, 2016 Encounter for immunization Z 23 [facility] [address] [id number] [address] [place] [address] [id number] Sep, Dental examination Z01.20 [facility] [place] [address] [id number] [address] [place] [address] Aug, Visit for TB skin test Z11.1 [facility] [address] [id number] [address] [place] [id number] Dec, Dental examination Z01.20 [facility] [address] [id number] [address] [place] [address] Nov, Dysuria R30.0 [facility] [address] [id number] [address] [place] [address] [id number] May, Dental examination Z01.20 [facility] [address] [id number] [address] [place] [address] [id number] Nov, Dental examination V72.2 [facility] [place] [address] [id number] [address] [place] [address] Jun, [facility] [place] [address] [id number] [address] [place] [address] Jun, [facility] [place] [address] [id number] [address] [place] [address] May, [facility] [place] [address] [id number] [address] [place] [address] May, [facility] [place] [address] [id number] [address] [place] [address] Mar, [facility] [place] [address] [id number] [address] [place] [address] Mar, [facility] [address] [id number] [address] [place] [address], [place] [address] Mar, [facility] [address] [id number] [address] [place] [address], [place] [address] Mar, [facility] [address] [id number] [address] [place] [address], [place] [address] Mar, [facility] [address] [id number] [address] [place] [address], [place] [address] Feb, [facility] [address] [id number] [address] [place] [address], [place] [address] Feb, [facility] [address] [id number] [address] [place] [address], [place] [address] Feb, [facility] [address] [id number] [address] [place] [address], [place] [address] Feb, [facility] [address] [id number] [address] [place] [address], [place] [address] Feb, [facility] [address] [id number] [address] [place] [address], [place] [address] Feb, [facility] [address] [id number] [address] [place] [address], [place] [address] Jan, [facility] [address] [id number] [address] [place] [address], [place] [address] Jan, [facility] [address] [id number] [address] [place] [address], [place] [address] Jan, [facility] [address] [id number] [address] [place] [address], [place] [address] Jan, [facility] [address] [id number] [address] [place] [address], [place] [address] Jan, [facility] [address] [id number] [address] [place] [address], [place] [address] Jan, [facility] [address] [id number] [address] [place] [address] Jan, [facility] [place] [address] [facility] [id number] [address] [place] [address] Dec, [facility] [place] [address] [id number] [address] [place] [address] Dec, [facility] [place] [address] [facility] [id number] [address] [place] [address] Dec, [facility] [place] [address] [facility] [id number] [address] [place] [address] Dec, [facility] [place] [address] [facility] [id number] [address] [place] [address] Feb, [facility] [place] [address] [facility] [id number] [address] [place] [address] Feb, IMMUNIZATIONS No Known Immunizations SOCIAL HISTORY Never Assessed REASON FOR VISIT Requests return call/ labs done PLAN OF CARE VITAL SIGNS MEDICATIONS Unknown [...]
--- OUTSIDE RECORDS SUMMARY | 2019-10-29 17:30 | XMS REPORT ---
Author Author Shruti CORBIN Organization [facility] Address [address] [place] [address] Care Team Providers Care Director Of Academic Name Role Phone SHAQUILLE MATTHIEU Unavailable PROBLEMS Type Condition ICD9-CM Code PNA64-DZ Code Onset Dates Condition S tatus SNOMED Code Problem Vitamin D deficiency E55.9 Active 11369133 Problem Chronic UTI N39.0 Active 03943060 6 Problem Hyperthyroidism E05.90 Active 3448 6009 ALLERGIES Substance Reaction Event Type Date Status Penicillins Unknown Non Drug Allergy Dec, Active ENCOUNTERS Encounter Location Date Diagnosis [facility] [address] [facility] [id number] [address] [place] [address] Aug, [facility] [address] [facility] [id number] [address] [place] [address] May, [facility] [address] [facility] [id number] [address] [place] [address] May, Hyperthyroidism E05.90 [facility] [address] [facility] [id number] [address] [place] [address] May, Hyperthyroidism E05.90 [facility] [address] [facility] [id number] [address] [place] [address] May, Hyperthyroidism E05.90 [facility] [address] [facility] [id number] [address] [place] [address] May, [facility] [address] [facility] [id number] [address] [place] [address] May, [facility] [address] [facility] [id number] [address] [place] [address] May, Hyperthyroidism E05.90 ; Keshia ast cancer screening by mammogram Z12.31 and Vitamin D deficiency E55.9 [facility] [address] [facility] [id number] [address] [place] [address] May, [facility] [address] [address] May, Acquired hypothyroidism E03. 9 ; Chronic UTI N39.0 ; Screening cholesterol level Z13.220 and Screening for diabetes mellitus Z13.1 [facility] [address] [facility] [id number] [address] [place] [address] Mar, Acquired hypothyroidism E03. 9 ; Chronic UTI N39.0 ; Screening cholesterol level Z13.220 and Screening for diabetes mellitus Z13.1 [place] [address] [place] [id number] [address] [place] [address] Jan, Complicated urinary tract in fection N39.0 [facility] [address] [place] [id number] [address] [place] [address] Jan, Complicated urinary tract in fection N39.0 and Vaginal candidiasis B37.3 [facility] [address] [place] [id number] [address] [place] [address] Dec, Dysuria R30.0 and Acute cyst itis with hematuria N30.01 [facility] [address] [place] [id number] [address] [place] [address] Dec, Dysuria R30.0 [facility] [address] [place] [id number] [address] [place] [address] 09 Dec, 2016 [facility] [address] [place] [id number] [address] [place] [address] Dec, Dysuria R30.0 and Acute cyst itis with hematuria N30.01 [facility] [address] [place] [id number] [place] [address] [id number] 27 Nov, 2016 Encounter for immunization Z 23 [facility] [address] [id number] [address] [place] [address] [id number] Sep, Dental examination Z01.20 [facility] [address] [id number] [address] [place] [address] Aug, Visit for TB skin test Z11.1 [facility] [address] [id number] [address] [place] [address] [id number] Dec, Dental examination Z01.20 [facility] [address] [id number] [address] [place] [address] 10 Nov, 2015 Dysuria R30.0 [facility] [address] [id number] [address] [place] [address] [id number] May, Dental examination Z01.20 [facility] [address] [id number] [address] [place] [address] [id number] Nov, Dental examination V72.2 [facility] [address] [id number] [address] [place] [address] Jun, [facility] [address] [id number] [address] [place] [address] Jun, [facility] [address] [id number] [address] [place] [address] May, [facility] [address] [id number] [address] [place] [address] May, [facility] [address] [id number] [address] [place] [address] Mar, [facility] [address] [id number] [address] [place] [address] Mar, [facility] [address] [id number] [address] [place] [address] Mar, [facility] [address] [id number] [address] [place] [address] Mar, [facility] [address] [id number] [address] [place] [address] Mar, [facility] [address] [id number] [address] [place] [address] Feb, [facility] [address] [id number] [address] [place] [address], [place] [address] Feb, [facility] [address] [id number] [address] [place] [address], [place] [address] Feb, [facility] [address] [id number] [address] [place] [address], [place] [address] Feb, [facility] [address] [id number] [address] [place] [address], [place] [address] Feb, [facility] [address] [id number] [address] [place] [address], [place] [address] Feb, [facility] [address] [id number] [address] [place] [address], [place] [address] Jan, [facility] [address] [id number] [address] [place] [address], [place] [address] Jan, [facility] [address] [id number] [address] [place] [address], [place] [address] Jan, [facility] [address] [id number] [address] [place] [address], [place] [address] Jan, [facility] [address] [id number] [address] [place] [address], [place] [address] Jan, [facility] [address] [id number] [address] [place] [address], [place] [address] Jan, [facility] [address] [id number] [address] [place] [address], [place] [address] Jan, [facility] [address] [id number] [address] [place] [address], [place] [address] Dec, [facility] [address] [id number] [address] [place] [address], [place] [address] Dec, [facility] [address] [id number] [address] [place] [address], [place] [address] Dec, [facility] [address] [id number] [place] [address] Dec, [facility] [address] [facility] [id number] [address] [place] [address] Feb, [facility] [address] [facility] [id number] [address] [place] [address] Feb, IMMUNIZATIONS No Known Immunizations SOCIAL HISTORY Never Assessed REASON FOR VISIT UTI symptoms. Urniary frequency and lower back pain. Was seen 01/02 for same s/s, hasn't felt better. KBoleRN PLAN OF CARE Activity Details Follow Up prn Reason: VITAL SIGNS Height 67 in 2017-01-16 Weight 216.1 lbs 2017-01-16 Temperature 98.3 degrees Fahrenheit 2017-01-16 Heart Rate 80 bpm 2017-01-16 Respiratory Rate 16 2017-01-16 BMI 33.84 kg/m2 2017-01-16 Blood pressure systolic 108 mmHg 2017-01-16 Blood pressure diastolic 72 mmHg 2017-01-16 MEDICATIONS Medication Instructions Dosage Frequency Start Date End Date Duration S tatus Selenium 100 MCG Orally Once a day 1 tablet 24h Active Vitamin D 1000 UNIT Orally Once a day 1 tablet 24h Active Macrobid 100 mg Orally every 12 hrs 1 capsule with food 12h Dec, Dec, 10 days Active Fish Oil 1000 MG Orally Once a day 1 capsule 24h Active RESULTS Name Result Date Reference Range UA LONG DIP (IN HOUSE) 2017-01-16 Lot # [id number] Exp date 05/2017 Clarity Cloudy Color Yellow Odor None GLU Negative SAMMI Negative KET Trace SG 1.025 BLO Trace-intact pH 5.5 Protein Trace URO 0.2 NIT Negative HILLARY 1+ Lot # Exp date CULTURE, URINE 2017-01-16 Urine Culture, Routine Final report Result 1 Escherichia coli Antimicrobial Susceptibility PROCEDURES Procedure Date Ordered Result Body Site URINE CULTURE/COLONY COUNT Jan 16, 2017 URINALYSIS, AUTO, W/O SCOPE Jan 16, 2017 INSTRUCTIONS MEDICATIONS ADMINISTERED No Known Medications [...]
--- OUTSIDE RECORDS SUMMARY | 2019-10-29 17:30 | XMS REPORT ---
Author Author Shruti CORBIN Organization [facility] Address [address] [place] [address] Care Team Providers Care Permit Specialist Name Role Phone SHAQUILLE MATTHIEU Unavailable PROBLEMS Type Condition ICD9-CM Code LWU02-IA Code Onset Dates Condition S tatus SNOMED Code Problem Postmenopausal vaginal bleeding N95.0 Active 20327326 Problem Overweight (BMI 25.0-29.9) E66.3 Act murphy 244732604 Problem Hyperthyroidism E05.90 Active 3448 6009 Problem Vitamin D deficiency E55.9 Active 14414491 Problem Chronic UTI N39.0 Active 25713307 6 ALLERGIES No Information ENCOUNTERS Encounter Location Date Diagnosis [facility] [id number] [place] [address] Sep, [facility] [address] [facility] [id number] [address] [place] [address] Aug, Hyperthyroidism E05.90 ; Chr onic UTI N39.0 ; Vitamin D deficiency E55.9 ; Postmenopausal vaginal bleeding N95.0 and Overweight (BMI 25.0-29.9) E66.3 [facility] [address] [facility] [id number] [address] [place] [address] July, [facility] [address] [facility] [id number] [address] [place] [address] May, [facility] [address] [place] [id number] [address] [place] [address] May, Hyperthyroidism E05.90 [facility] [address] [place] [id number] [address] [place] [address] May, Hyperthyroidism E05.90 [facility] [address] [place] [id number] [address] [place] [address] May, Hyperthyroidism E05.90 [facility] [address] [facility] [id number] [address] [place] [address] May, [facility] [address] [facility] [id number] [address] [place] [address] May, [facility] [address] [facility] [id number] [address] [place] [address] May, Hyperthyroidism E05.90 ; Keshia ast cancer screening by mammogram Z12.31 and Vitamin D deficiency E55.9 [facility] [address] [facility] [id number] [address] [place] [address] May, [place] [address] [facility] [id number] [address] [place] [address] May, Acquired hypothyroidism E03. 9 ; Chronic UTI N39.0 ; Screening cholesterol level Z13.220 and Screening for diabetes mellitus Z13.1 [place] [address] [place] [id number] [address] [place] [address] Mar, Acquired hypothyroidism E03. 9 ; Chronic UTI N39.0 ; Screening cholesterol level Z13.220 and Screening for diabetes mellitus Z13.1 [place] [address] [facility] [id number] [address] [place] [address] Jan, Complicated urinary tract in fection N39.0 [place] [address] [place] [id number] [address] [place] [address] Jan, Complicated urinary tract in fection N39.0 and Vaginal candidiasis B37.3 [place] [address] [facility] [id number] [address] [place] [address] Dec, Dysuria R30.0 and Acute cyst itis with hematuria N30.01 [place] [address] [place] [id number] [address] [place] [address] 10 Dec, 2016 Dysuria R30.0 [place] [address] [address] Dec, [facility] [address] [id number] [address] [place] [address] Dec, Dysuria R30.0 and Acute cyst itis with hematuria N30.01 [facility] [address] [id number] [place] [address] [id number] 27 Nov, 2016 Encounter for immunization Z 23 [facility] [address] [id number] [address] [place] [id number] Sep, Dental examination Z01.20 [facility] [address] [id number] [address] [place] [address] Aug, Visit for TB skin test Z11.1 [facility] [address] [id number] [address] [place] [address] [id number] Dec, Dental examination Z01.20 [facility] [address] [id number] [address] [place] [address] Nov, Dysuria R30.0 [facility] [address] [id number] [address] [place] [id number] May, Dental examination Z01.20 [facility] [address] [id number] [address] [place] [address] [id number] Nov, Dental examination V72.2 [facility] [address] [id number] [address] [place] [address] Jun, [facility] [address] [id number] [address] [place] [address] Jun, [facility] [address] [id number] [address] [place] [address] May, [facility] [address] [id number] [address] [place] [address] May, [facility] [address] [id number] [address] [place] [address] Mar, [facility] [address] [id number] [address] [place] [address] Mar, [facility] [address] [id number] [address] [place] [address], [place] [address] Mar, [facility] [address] [id number] [address] [place] [address], [place] [address] Mar, [facility] [address] [id number] [address] [place] [address], [place] [address] Mar, [facility] [address] [id number] [address] [place] [address], [place] [address] Feb, [facility] [address] [id number] [address] [place] [address], [place] [address] Feb, [facility] [address] [id number] [address] [place] [address], [place] [address] Feb, [facility] [address] [id number] [address] [place] [address], [place] [address] Feb, [facility] [address] [id number] [address] [place] [address], [place] [address] Feb, [facility] [address] [id number] [address] [place] [address], [place] [address] Feb, [facility] [address] [id number] [address] [place] [address], [place] [address] Jan, [facility] [address] [id number] [address] [place] [address], [place] [address] Jan, [facility] [address] [id number] [address] [place] [address], [place] [address] Jan, [facility] [address] [id number] [address] [place] [address], [place] [address] Jan, [facility] [address] [id number] [address] [place] [address], [place] [address] Jan, [facility] [address] [id number] [address] [place] [address], [place] [address] Jan, [facility] [address] [id number] [address] [place] [address] Jan, [facility] [address] [id number] [address] [place] [address] Dec, [facility] [address] [id number] [address] [place] [address] Dec, [facility] [address] [facility] [id number] [address] [place] [address] Dec, [facility] [address] [facility] [id number] [address] [place] [address] Dec, [facility] [address] [facility] [id number] [address] [place] [address] Feb, [facility] [address] [facility] [id number] [address] [place] [address] Feb, IMMUNIZATIONS No Known Immunizations SOCIAL HISTORY Never Assessed REASON FOR VISIT Lab results PLAN OF CARE VITAL SIGNS MEDICATIONS Unknown [...]
--- OUTSIDE RECORDS SUMMARY | 2019-10-29 17:30 | XMS REPORT ---
Author Author Shruti CORBIN Organization [facility] Address [address] [place] [address] Care Team Providers Care Chamber Magistrate Name Role Phone MATTHIEU CORBIN Unavailable PROBLEMS Type Condition ICD9-CM Code THB68-HS Code Onset Dates Condition S tatus SNOMED Code Problem Postmenopausal vaginal bleeding N95.0 Active 91965254 Problem Overweight (BMI 25.0-29.9) E66.3 Act murphy 299748271 Problem Hyperthyroidism E05.90 Active 3448 6009 Problem Vitamin D deficiency E55.9 Active 71048725 Problem Chronic UTI N39.0 Active 35623937 6 ALLERGIES Substance Reaction Event Type Date Status Cipro Unknown Drug Allergy Mar, Active Penicillins Unknown Non Drug Allergy Mar, Active ENCOUNTERS Encounter Location Date Diagnosis [place] [address] [place] [id number] [address] [place] [address] Sep, [facility] [address] [place] [id number] [address] [place] [address] Aug, Hyperthyroidism E05.90 ; Chr onic UTI N39.0 ; Vitamin D deficiency E55.9 ; Postmenopausal vaginal bleeding N95.0 and Overweight (BMI 25.0-29.9) E66.3 [facility] [address] [place] [id number] [address] [place] [address] July, [facility] [id number] [place] [address] May, [facility] [address] [place] [id number] [address] [place] [address] May, Hyperthyroidism E05.90 [facility] [address] [place] [id number] [address] [place] [address] 27 Feb, 2018 Hyperthyroidism E05.90 [place] [address] [facility] [id number] [address] [place] [address] May, Hyperthyroidism E05.90 [facility] [address] [facility] [id number] [address] [place] [address] May, [facility] [address] [facility] [id number] [address] [place] [address] May, [place] [address] [facility] [id number] [place] [address] May, Hyperthyroidism E05.90 ; Keshia ast cancer screening by mammogram Z12.31 and Vitamin D deficiency E55.9 [place] [address] [address] [facility] [id number] [address] [place] [address] May, [place] [address] [place] [id number] [place] [address] May, Acquired hypothyroidism E03. 9 ; Chronic UTI N39.0 ; Screening cholesterol level Z13.220 and Screening for diabetes mellitus Z13.1 [place] [address] [facility] [id number] [address] [place] [address] Mar, Acquired hypothyroidism E03. 9 ; Chronic UTI N39.0 ; Screening cholesterol level Z13.220 and Screening for diabetes mellitus Z13.1 [place] [address] [facility] [id number] [address] [place] [address] Jan, Complicated urinary tract in fection N39.0 [place] [address] [address] Jan, Complicated urinary tract in fection N39.0 and Vaginal candidiasis B37.3 [place] [address] [place] [id number] [place] [address] Dec, Dysuria R30.0 and Acute cyst itis with hematuria N30.01 [place] [address] [place] [id number] [address] [place] [address] Dec, Dysuria R30.0 [facility] [address] [id number] [address] [place] [address] Dec, [facility] [address] [id number] [address] [place] [address] Dec, Dysuria R30.0 and Acute cyst itis with hematuria N30.01 [facility] [address] [id number] [place] [address] [id number] Nov, Encounter for immunization Z 23 [facility] [address] [id number] [address] [place] [id number] Sep, Dental examination Z01.20 [facility] [address] [id number] [address] [place] [phone] Aug, Visit for TB skin test Z11.1 [facility] [address] [id number] [address] [place] [address] [id number] Dec, Dental examination Z01.20 [facility] [address] [id number] [address] [place] [address] 10 Nov, 2015 Dysuria R30.0 [facility] [address] [id number] [address] [place] [address] [id number] May, Dental examination Z01.20 [facility] [address] [id number] [address] [place] [address] [id number] Nov, Dental examination V72.2 [facility] [address] [id number] [address] [place] [address] Jun, [facility] [address] [id number] [address] [place] [address] Jun, [facility] [address] [id number] [address] [place] [phone] May, [facility] [address] [id number] [address] [place] [phone] May, [facility] [address] [id number] [address] [place] [address] Mar, [facility] [address] [id number] [address] [place] [address], [place] [address] Mar, [facility] [address] [id number] [address] [place] [address], [place] [address] Mar, [facility] [address] [id number] [address] [place] [address], [place] [address] Mar, [facility] [address] [id number] [address] [place] [address], [place] [address] Mar, [facility] [address] [id number] [address] [place] [address], [place] [address] Feb, [facility] [address] [id number] [address] [place] [address], [place] [phone] Feb, [facility] [address] [id number] [address] [place] [address], [place] [address] Feb, [facility] [address] [id number] [address] [place] [address], [place] [address] Feb, [facility] [address] [id number] [address] [place] [address], [place] [address] Feb, [facility] [address] [id number] [address] [place] [address], [place] [address] Feb, [facility] [address] [id number] [address] [place] [address], [place] [address] Jan, [facility] [address] [id number] [address] [place] [address], [place] [address] Jan, [facility] [address] [id number] [address] [place] [address], [place] [address] Jan, [facility] [address] [id number] [address] [place] [address], [place] [address] Jan, [facility] [address] [id number] [address] [place] [address], [place] [address] Jan, [facility] [address] [id number] [address] [place] [phone] Jan, [facility] [address] [id number] [address] [place] [phone] Jan, [facility] [address] [id number] [address] [place] [address] Dec, [facility] [address] [id number] [address] [place] [phone] Dec, [facility] [address] [id number] [address] [place] [phone] Dec, [facility] [address] [id number] [address] [place] [phone] Dec, [facility] [address] [id number] [address] [place] [phone] Feb, [facility] [address] [id number] [address] [place] [phone] Feb, IMMUNIZATIONS No Known Immunizations SOCIAL HISTORY Never Assessed REASON FOR VISIT Establish Care: Was a patient here and then switched to [facility], now wanting to change back sulma rahman PLAN OF CARE Activity Details Follow Up 3 Months Reason:CHM/Thyroid VITAL SIGNS Height 67 in 2017-04-29 Temperature 98.3 degrees Fahrenheit 2017-04-29 Heart Rate 80 bpm 2017-04-29 Respiratory Rate 20 2017-04-29 Blood pressure systolic 132 mmHg 2017-04-29 Blood pressure diastolic 82 mmHg 2017-04-29 MEDICATIONS Medication Instructions Dosage Frequency Start Date End Date Duration S tatus Selenium 100 MCG Orally Once a day 1 tablet 24h Active Vitamin D 1000 UNIT Orally Once a day 1 tablet 24h Active Fish Oil 1000 MG Orally Once a day 1 capsule 24h Active Magnesium 400 MG Orally Once a day 1 tablet with a meal 24h Active Multiple Vitamins - Orally Once a day 1 tablet 24h Active RESULTS No Results PROCEDURES No Known procedures [...]
--- OUTSIDE RECORDS SUMMARY | 2019-10-29 17:30 | XMS REPORT ---
Author Author Shruti REEVES Organization [employer] Address Unknown Phone Unavailable Care Team Providers Care Day Guard Name Role Phone STEPHANIE REEVES CP Unavailable Allergies, Adverse Reactions, Alerts Substance Reaction Event Type Penicillins Info Not Available Non Drug Allergy Problems Problem Type Condition Code Onset Dates Condition Statu s Problem Unspecified hypothyroidism 244.9 A ctive Problem Need for prophylactic vaccination and inoculation, Inf luenza V04.81 Active Problem Lumbago 724.2 Active Problem Screening examination for pulmonary tuberculosis V74.1 Active Assessment Dental examination V72.2 Active Problem Pain in joint, lower leg 719.46 Act murphy Problem Urinary tract infection, site not specified 599.0 Active Medications Medication Code System Code Instructions Start Date End Date Status Dosage Nature-Throid [facility] [id number] not defined Nitrofurantoin [facility] [id number] not defined Procedures Procedure Coding System Code Date PROPHYLAXIS - ADULT CPT-4 D1110 Dec 15 5 PERIODIC ORAL EXAMINATION CPT-4 D0120 Nov 292014 Vital Signs Date/Time: Dec 15, 2014 Blood Pressure Diastolic 72 mmHg Blood Pressure Systolic 104 mmHg Results No Known Results Summary Purpose [employer] Submission
--- OUTSIDE RECORDS SUMMARY | 2019-10-29 17:30 | XMS REPORT ---
Author Author Shruti CORBIN Organization [facility] Address [address] [place] [address] Care Team Providers Care Soda Fountain Operator Name Role Phone SHAQUILLE MATTHIEU Unavailable PROBLEMS Type Condition ICD9-CM Code [id number] Code Onset Dates Condition S tatus SNOMED Code Problem Postmenopausal vaginal bleeding N95.0 Active 20983674 Problem Overweight (BMI 25.0-29.9) E66.3 Act murphy 199400778 Problem Hyperthyroidism E05.90 Active 3448 6009 Problem Vitamin D deficiency E55.9 Active 74534976 Problem Chronic UTI N39.0 Active [id number] 6 ALLERGIES No Information ENCOUNTERS Encounter Location Date Diagnosis [facility] [id number] [place] [phone] Sep, [facility] [address] [facility] [id number] [address] [place] [address] Aug, Hyperthyroidism E05.90 ; Chr onic UTI N39.0 ; Vitamin D deficiency E55.9 ; Postmenopausal vaginal bleeding N95.0 and Overweight (BMI 25.0-29.9) E66.3 [facility] [address] [facility] [id number] [address] [place] [phone] July, [facility] [address] [facility] [id number] [address] [place] [phone] May, [facility] [address] [place] [id number] [address] [place] [address] May, Hyperthyroidism E05.90 [facility] [address] [place] [id number] [address] [place] [address] May, Hyperthyroidism E05.90 [facility] [address] [place] [id number] [address] [place] [address] May, Hyperthyroidism E05.90 [facility] [address] [facility] [id number] [address] [place] [address] May, [facility] [address] [facility] [id number] [address] [place] [phone] May, [facility] [address] [facility] [id number] [address] [place] [address] May, Hyperthyroidism E05.90 ; Keshia ast cancer screening by mammogram Z12.31 and Vitamin D deficiency E55.9 [facility] [address] [facility] [id number] [address] [place] [phone] May, [place] [address] [facility] [id number] [address] [place] [address] May, Acquired hypothyroidism E03. 9 ; Chronic UTI N39.0 ; Screening cholesterol level Z13.220 and Screening for diabetes mellitus Z13.1 [place] [address] [place] [id number] [address] [place] [phone] Mar, Acquired hypothyroidism E03. 9 ; Chronic UTI N39.0 ; Screening cholesterol level Z13.220 and Screening for diabetes mellitus Z13.1 [place] [address] [facility] [id number] [address] [place] [phone] Jan, Complicated urinary tract in fection N39.0 [place] [address] [place] [id number] [address] [place] [phone] Jan, Complicated urinary tract in fection N39.0 and Vaginal candidiasis B37.3 [place] [address] [facility] [id number] [address] [place] [address] Dec, Dysuria R30.0 and Acute cyst itis with hematuria N30.01 [place] [address] [place] [id number] [address] [place] [phone] 10 Dec, 2016 Dysuria R30.0 [place] [address] [address] Dec, [facility] [address] [id number] [address] [place] [phone] Dec, Dysuria R30.0 and Acute cyst itis with hematuria N30.01 [facility] [address] [id number] [place] [id number] 27 Nov, 2016 Encounter for immunization Z 23 [facility] [address] [id number] [address] [place] [address] [id number] Sep, Dental examination Z01.20 [facility] [address] [id number] [address] [place] [phone] Aug, Visit for TB skin test Z11.1 [facility] [address] [id number] [address] [place] [address] [id number] Dec, Dental examination Z01.20 [facility] [address] [id number] [address] [place] [address] Nov, Dysuria R30.0 [facility] [address] [id number] [address] [place] [address] [id number] May, Dental examination Z01.20 [facility] [address] [id number] [address] [place] [address] [phone] Nov, Dental examination V72.2 [facility] [address] [id number] [address] [place] [address] Jun, [facility] [address] [id number] [address] [place] [phone] Jun, [facility] [address] [id number] [address] [place] [phone] May, [facility] [address] [id number] [address] [place] [phone] May, [facility] [address] [id number] [address] [place] [phone] Mar, [facility] [address] [id number] [address] [place] [phone] Mar, [facility] [address] [id number] [address] [place] [address], [place] [address] Mar, [facility] [address] [id number] [address] [place] [address], [place] [address] Mar, [facility] [address] [id number] [address] [place] [address], [place] [address] Mar, [facility] [address] [id number] [address] [place] [address], [place] [address] Feb, [facility] [address] [id number] [address] [place] [address], [place] [address] Feb, [facility] [address] [id number] [address] [place] [address], [place] [address] Feb, [facility] [address] [id number] [address] [place] [address], [place] [address] Feb, [facility] [address] [id number] [address] [place] [address], [place] [address] Feb, [facility] [address] [id number] [address] [place] [address], [place] [address] Feb, [facility] [address] [id number] [address] [place] [address], [place] [address] Jan, [facility] [address] [id number] [address] [place] [address], [place] [address] Jan, [facility] [address] [id number] [address] [place] [address], [place] [address] Jan, [facility] [address] [id number] [address] [place] [address], [place] [address] Jan, [facility] [address] [id number] [address] [place] [address], [place] [address] Jan, [facility] [address] [id number] [address] [place] [address], [place] [address] Jan, [facility] [address] [id number] [address] [place] [address] Jan, [facility] [address] [id number] [address] [place] [phone] Dec, [facility] [address] [id number] [address] [place] [phone] Dec, [facility] [address] [facility] [id number] [address] [place] [phone] Dec, [facility] [address] [facility] [id number] [address] [place] [phone] Dec, [facility] [address] [facility] [id number] [address] [place] [phone] Feb, [facility] [address] [facility] [id number] [address] [place] [phone] Feb, IMMUNIZATIONS No Known Immunizations SOCIAL HISTORY Never Assessed REASON FOR VISIT PA Thyroid PLAN OF CARE VITAL SIGNS MEDICATIONS Unknown [...]
--- OUTSIDE RECORDS SUMMARY | 2019-10-29 17:30 | XMS REPORT ---
Author Author Shruti DENNIS Organization [facility] Address [address] [place] [address] Care Team Providers Care Metal And Plastic Heater Name Role Phone MARCEL DENNIS Unavailable PROBLEMS Type Condition ICD9-CM Code [id number] Code Onset Dates Condition S tatus SNOMED Code Assessment Dysuria R30.0 Nov, Active 650086 01 Problem Lumbago 724.2 Active 465118904 Problem Unspecified hypothyroidism 244.9 Act murphy 05228123 Problem Urinary tract infection, site not specified 599.0 Active 27528168 Problem Screening examination for pulmonary tuberculosis V74.1 Active 654137196 Problem Need for prophylactic vaccination and inoculation, Influen za V04.81 Active 847412894 Problem Pain in joint, lower leg 719.46 Activ e [id number] ALLERGIES Substance Reaction Event Type Date Status Penicillins Unknown Non Drug Allergy Nov, Active SOCIAL HISTORY No smoking Hx information available PLAN OF CARE VITAL SIGNS Height 67 in 2015-12-09 Weight 204.4 lbs 2015-12-09 Heart Rate 84 bpm 2015-12-09 Respiratory Rate 16 2015-12-09 BMI 32.01 kg/m2 2015-12-09 Blood pressure systolic 122 mmHg 2015-12-09 Blood pressure diastolic 78 mmHg 2015-12-09 MEDICATIONS Medication Instructions Dosage Frequency Start Date End Date Duration S tatus Pyridium 100 MG Orally Three times a day 1 tablet after meals 8h Nov, Nov, 2 day(s) Active Trimethoprim 100 MG Orally Once a day 1 tablet 24h Active Levothyroxine Sodium 100 MCG TAKE ONE TABLET BY MOUTH DAILY 30 Active RESULTS Name Result Date Reference Range CULTURE, URINE 2015-12-09 Urine Culture, Routine Final report Result 1 Escherichia coli Antimicrobial Susceptibility UA LONG DIP (IN HOUSE) 2015-12-09 Lot # [id number] Exp date 05/2016 Clarity clear Color yellow Odor no GLU negative SAMMI negative KET negative SG 1.015 BLO 2+ pH 6.0 Protein negative URO 0.2 NIT negative HILLARY 1+ Lot # [id number] Exp date 01/2017 PROCEDURES Procedure Date Ordered Related Diagnosis Body Site Office Visit, Est Pt., Level 3 Dec 09, 2015 URINE CULTURE/COLONY COUNT Dec 09, 2015 IMMUNIZATIONS No Known Immunizations
--- OUTSIDE RECORDS SUMMARY | 2019-10-29 17:30 | XMS REPORT ---
Author Author Shruti CORBIN Organization [facility] Address [address] [place] [address] Care Team Providers Care Conference Coordinator Name Role Phone SHAQUILLE MATTHIEU Unavailable PROBLEMS Type Condition ICD9-CM Code TQY79-GG Code Onset Dates Condition S tatus SNOMED Code Problem Postmenopausal vaginal bleeding N95.0 Active 99506513 Problem Overweight (BMI 25.0-29.9) E66.3 Act murphy 410114594 Problem Hyperthyroidism E05.90 Active 3448 6009 Problem Vitamin D deficiency E55.9 Active 09812387 Problem Chronic UTI N39.0 Active 83651664 6 ALLERGIES No Information ENCOUNTERS Encounter Location Date Diagnosis [facility] [id number] [place] [phone] Sep, [facility] [address] [facility] [id number] [address] [place] [phone] Aug, Hyperthyroidism E05.90 ; Chr onic UTI N39.0 ; Vitamin D deficiency E55.9 ; Postmenopausal vaginal bleeding N95.0 and Overweight (BMI 25.0-29.9) E66.3 [facility] [address] [facility] [id number] [address] [place] [phone] July, [facility] [address] [facility] [id number] [address] [place] [address] May, [facility] [address] [place] [id number] [address] [place] [address] May, Hyperthyroidism E05.90 [facility] [address] [place] [id number] [address] [place] [address] May, Hyperthyroidism E05.90 [facility] [address] [place] [id number] [address] [place] [phone] May, Hyperthyroidism E05.90 [facility] [address] [facility] [id number] [address] [place] [phone] May, [facility] [address] [facility] [id number] [address] [place] [phone] May, [facility] [address] [facility] [id number] [address] [place] [address] May, Hyperthyroidism E05.90 ; Keshia ast cancer screening by mammogram Z12.31 and Vitamin D deficiency E55.9 [facility] [address] [facility] [id number] [address] [place] [phone] May, [place] [address] [address] [facility] [id number] [address] [place] [phone] May, Acquired hypothyroidism E03. 9 ; Chronic UTI N39.0 ; Screening cholesterol level Z13.220 and Screening for diabetes mellitus Z13.1 [place] [address] [place] [id number] [address] [place] [address] Mar, Acquired hypothyroidism E03. 9 ; Chronic UTI N39.0 ; Screening cholesterol level Z13.220 and Screening for diabetes mellitus Z13.1 [place] [address] [address] [facility] [id number] [address] [place] [phone] Jan, Complicated urinary tract in fection N39.0 [place] [address] [place] [id number] [address] [place] [address] Jan, Complicated urinary tract in fection N39.0 and Vaginal candidiasis B37.3 [place] [address] [address] [facility] [id number] [address] [place] [address] Dec, Dysuria R30.0 and Acute cyst itis with hematuria N30.01 [place] [address] [place] [id number] [address] [place] [phone] 10 Dec, 2016 Dysuria R30.0 [place] [address] [phone] Dec, [facility] [address] [id number] [address] [place] [address] Dec, Dysuria R30.0 and Acute cyst itis with hematuria N30.01 [facility] [address] [id number] [place] [address] [id number] 27 Nov, 2016 Encounter for immunization Z 23 [facility] [address] [id number] [address] [place] [id number] Sep, Dental examination Z01.20 [facility] [address] [id number] [address] [place] [address] Aug, Visit for TB skin test Z11.1 [facility] [address] [id number] [address] [place] [address] [id number] Dec, Dental examination Z01.20 [facility] [address] [id number] [address] [place] [address] Nov, Dysuria R30.0 [facility] [address] [id number] [address] [place] [address] [id number] May, Dental examination Z01.20 [facility] [address] [id number] [address] [place] [address] [id number] Nov, Dental examination V72.2 [facility] [address] [id number] [address] [place] [address] Jun, [facility] [address] [id number] [address] [place] [phone] Jun, [facility] [address] [id number] [address] [place] [address] May, [facility] [address] [id number] [address] [place] [address] May, [facility] [address] [id number] [address] [place] [phone] Mar, [facility] [address] [id number] [address] [place] [address] Mar, [facility] [address] [id number] [address] [place] [address], [place] [address] Mar, [facility] [address] [id number] [address] [place] [address], [place] [address] Mar, [facility] [address] [id number] [address] [place] [address], [place] [address] Mar, [facility] [address] [id number] [address] [place] [address], [place] [address] Feb, [facility] [address] [id number] [address] [place] [address], [place] [address] Feb, [facility] [address] [id number] [address] [place] [address], [place] [address] Feb, [facility] [address] [id number] [address] [place] [address], [place] [address] Feb, [facility] [address] [id number] [address] [place] [address], [place] [address] Feb, [facility] [address] [id number] [address] [place] [address], [place] [address] Feb, [facility] [address] [id number] [address] [place] [address], [place] [address] Jan, [facility] [address] [id number] [address] [place] [address], [place] [address] Jan, [facility] [address] [id number] [address] [place] [address], [place] [address] Jan, [facility] [address] [id number] [address] [place] [address], [place] [address] Jan, [facility] [address] [id number] [address] [place] [address], [place] [address] Jan, [facility] [address] [id number] [address] [place] [address], [place] [address] Jan, [facility] [address] [id number] [address] [place] [address] Jan, [facility] [address] [id number] [address] [place] [address] Dec, [facility] [address] [id number] [address] [place] [address] Dec, [facility] [address] [facility] [id number] [address] [place] [address] Dec, [facility] [address] [id number] [address] [place] [address] Dec, [facility] [address] [facility] [id number] [address] [place] [address] Feb, [facility] [address] [facility] [id number] [address] [place] [address] Feb, IMMUNIZATIONS No Known Immunizations SOCIAL HISTORY Never Assessed REASON FOR VISIT PA Mammogram PLAN OF CARE VITAL SIGNS MEDICATIONS Unknown [...]
--- OUTSIDE RECORDS SUMMARY | 2019-10-29 17:30 | XMS REPORT ---
Author Author Shruti FRAGOSO Organization [employer] Address Unknown Phone Unavailable Care Team Providers Care Java Programmer Name Role Phone JOSE FRAGOSO CP Unavailable Allergies, Adverse Reactions, Alerts Substance Reaction Event Type Penicillins Info Not Available Non Drug Allergy Problems Problem Type Condition Code Onset Dates Condition Statu s Problem Unspecified hypothyroidism 244.9 A ctive Problem Need for prophylactic vaccination and inoculation, Inf luenza V04.81 Active Problem Lumbago 724.2 Active Problem Screening examination for pulmonary tuberculosis V74.1 Active Assessment Dental examination Z01.20 Active Problem Pain in joint, lower leg 719.46 Act murphy Problem Urinary tract infection, site not specified 599.0 Active Medications Medication Code System Code Instructions Start Date End Date Status Dosage Levothyroxine Sodium [facility] 23768065893 100 MCG TAKE ONE TABLET BY MOUTH DAILY Trimethoprim [facility] [address]-37 100 MG Orally Once a day 1 tablet Procedures Procedure Coding System Code Date PROPHYLAXIS - ADULT CPT-4 D1110 Jan 22, 2016 Vital Signs Date/Time: Jan 22, 2016 Blood Pressure Diastolic 73 mmHg Blood Pressure Systolic 112 mmHg Results No Known Results Summary Purpose [employer] Submission
--- OUTSIDE RECORDS SUMMARY | 2019-10-29 17:30 | XMS REPORT ---
Author Author Shruti CORBIN Organization [facility] Address [address] [place] [address] Care Team Providers Care Filter Washer And Presser Name Role Phone MATTHIEU CORBIN Unavailable PROBLEMS Type Condition ICD9-CM Code [id number] Code Onset Dates Condition S tatus SNOMED Code Problem Postmenopausal vaginal bleeding N95.0 Active 27339759 Problem Overweight (BMI 25.0-29.9) E66.3 Act murphy 287387978 Problem Hyperthyroidism E05.90 Active 3448 6009 Problem Vitamin D deficiency E55.9 Active 63750802 Problem Chronic UTI N39.0 Active 06684964 6 ALLERGIES No Information ENCOUNTERS Encounter Location Date Diagnosis [facility] [id number] [place] [phone] Oct, [facility] [address] [facility] [id number] [address] [place] [phone] Sep, [place] [address] [place] [id number] [address] [place] [address] Sep, Encounter for well woman exa m with routine gynecological exam Z01.419 ; Screening for STDs (sexually transmitted diseases) Z11.3 ; Overweight (BMI 25.0-29.9) E66.3 and Chronic UTI N39.0 [facility] [address] [facility] [id number] [address] [place] [phone] Aug, Hyperthyroidism E05.90 ; Chr onic UTI N39.0 ; Vitamin D deficiency E55.9 ; Postmenopausal vaginal bleeding N95.0 and Overweight (BMI 25.0-29.9) E66.3 [facility] [address] [facility] [id number] [address] [place] [phone] July, [place] [address] [place] [id number] [address] [place] [id number] May, [facility] [address] [facility] [id number] [address] [place] [phone] May, Hyperthyroidism E05.90 [facility] [address] [facility] [id number] [address] [place] [address] May, Hyperthyroidism E05.90 [facility] [address] [facility] [id number] [address] [place] [phone] May, Hyperthyroidism E05.90 [facility] [address] [facility] [id number] [address] [place] [id number] May, [facility] [address] [facility] [id number] [address] [place] [phone] May, [facility] [address] [place] [id number] [place] [address] May, Hyperthyroidism E05.90 ; Keshia ast cancer screening by mammogram Z12.31 and Vitamin D deficiency E55.9 [facility] [address] [facility] [id number] [address] [place] [id number] May, [facility] [address] [facility] [id number] [address] [place] [address] May, Acquired hypothyroidism E03. 9 ; Chronic UTI N39.0 ; Screening cholesterol level Z13.220 and Screening for diabetes mellitus Z13.1 [facility] [address] [facility] [id number] [address] [place] [address] Mar, Acquired hypothyroidism E03. 9 ; Chronic UTI N39.0 ; Screening cholesterol level Z13.220 and Screening for diabetes mellitus Z13.1 [facility] [address] [facility] [id number] [address] [place] [phone] Jan, Complicated urinary tract in fection N39.0 [facility] [address] [place] [id number] [address] [place] [phone] Jan, Complicated urinary tract in fection N39.0 and Vaginal candidiasis B37.3 [facility] [address] [id number] [address] [place] [id number] Dec, Dysuria R30.0 and Acute cyst itis with hematuria N30.01 [facility] [address] [id number] [address] [place] [id number] 10 Dec, 2016 Dysuria R30.0 [facility] [address] [id number] [address] [place] [id number] Dec, [facility] [address] [id number] [address] [place] [id number] Dec, Dysuria R30.0 and Acute cyst itis with hematuria N30.01 [facility] [address] [id number] [place] [address] [id number] 27 Nov, 2016 Encounter for immunization Z 23 [facility] [address] [id number] [address] [place] [id number] Sep, Dental examination Z01.20 [facility] [address] [id number] [address] [place] [id number] Aug, Visit for TB skin test Z11.1 [facility] [address] [id number] [address] [place] [address] [id number] Dec, Dental examination Z01.20 [facility] [address] [id number] [address] [place] [phone] Nov, Dysuria R30.0 [facility] [address] [id number] [address] [place] [id number] May, Dental examination Z01.20 [facility] [address] [id number] [address] [place] [address] [id number] Nov, Dental examination V72.2 [facility] [address] [id number] [address] [place] [id number] 14 Jun, 2014 [facility] [address] [facility] [id number] [address] [place] [phone] Jun, [facility] [address] [id number] [address] [place] [address], [place] [address] May, [facility] [address] [id number] [address] [place] [address], [place] [address] May, [facility] [address] [id number] [address] [place] [address], [place] [address] Mar, [facility] [address] [id number] [address] [place] [address], [place] [address] Mar, [facility] [address] [id number] [address] [place] [address], [place] [address] Mar, [facility] [address] [id number] [address] [place] [address], [place] [address] Mar, [facility] [address] [id number] [address] [place] [address], [place] [address] Mar, [facility] [address] [id number] [address] [place] [address], [place] [address] Feb, [facility] [address] [id number] [address] [place] [address], [place] [address] Feb, [facility] [address] [id number] [address] [place] [address], [place] [address] Feb, [facility] [address] [id number] [address] [place] [address], [place] [address] Feb, [facility] [address] [id number] [address] [place] [phone] Feb, [facility] [address] [id number] [address] [place] [address], [place] [address] Feb, [facility] [address] [id number] [address] [place] [address], [place] [address] Jan, [facility] [address] [id number] [address] [place] [id number] Jan, [facility] [address] [id number] [address] [place] [phone] Jan, [facility] [address] [id number] [address] [place] [phone] Jan, [facility] [address] [id number] [address] [place] [phone] Jan, [facility] [address] [id number] [address] [place] [id number] Jan, [facility] [address] [id number] [address] [place] [id number] Jan, [facility] [address] [id number] [address] [place] [id number] Dec, [facility] [address] [id number] [address] [place] [phone] Dec, [facility] [address] [id number] [address] [place] [id number] Dec, [facility] [address] [id number] [address] [place] [phone] Dec, [facility] [address] [id number] [address] [place] [id number] Feb, [facility] [address] [id number] [address] [place] [phone] Feb, IMMUNIZATIONS No Known Immunizations SOCIAL HISTORY Never Assessed REASON FOR VISIT Medication request PLAN OF CARE VITAL SIGNS MEDICATIONS Unknown [...]
--- OUTSIDE RECORDS SUMMARY | 2019-10-29 17:30 | XMS REPORT ---
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 Name Role Phone SHAQUILLE MATTHIEU Unavailable PROBLEMS Type Condition ICD9-CM Code NTI97-JE Code Onset Dates Condition S tatus SNOMED Code Problem Postmenopausal vaginal bleeding N95.0 Active 03271727 Problem Overweight (BMI 25.0-29.9) E66.3 Act murphy 907568988 Problem Hyperthyroidism E05.90 Active 3448 6009 Problem Vitamin D deficiency E55.9 Active 73089689 Problem Chronic UTI N39.0 Active 79183513 6 ALLERGIES No Information ENCOUNTERS Encounter Location Date Diagnosis [facility] [id number] [place] [phone] Sep, [facility] [address] [facility] [id number] [address] [place] [id number] Aug, Hyperthyroidism E05.90 ; Chr onic UTI N39.0 ; Vitamin D deficiency E55.9 ; Postmenopausal vaginal bleeding N95.0 and Overweight (BMI 25.0-29.9) E66.3 [facility] [address] [facility] [id number] [address] [place] [phone] July, [facility] [address] [facility] [id number] [address] [place] [phone] May, [facility] [address] [place] [id number] [address] [place] [address] May, Hyperthyroidism E05.90 [facility] [address] [place] [id number] [address] [place] [address] May, Hyperthyroidism E05.90 [facility] [address] [place] [id number] [address] [place] [phone] May, Hyperthyroidism E05.90 [facility] [address] [facility] [id number] [address] [place] [phone] May, [facility] [address] [facility] [id number] [address] [place] [phone] May, [facility] [address] [facility] [id number] [address] [place] [phone] May, Hyperthyroidism E05.90 ; Keshia ast cancer screening by mammogram Z12.31 and Vitamin D deficiency E55.9 [facility] [address] [facility] [id number] [address] [place] [address] May, [place] [address] [address] [facility] [id number] [address] [place] [phone] May, Acquired hypothyroidism E03. 9 ; Chronic UTI N39.0 ; Screening cholesterol level Z13.220 and Screening for diabetes mellitus Z13.1 [place] [address] [place] [id number] [address] [place] [address] Mar, Acquired hypothyroidism E03. 9 ; Chronic UTI N39.0 ; Screening cholesterol level Z13.220 and Screening for diabetes mellitus Z13.1 [place] [address] [facility] [id number] [address] [place] [phone] Jan, Complicated urinary tract in fection N39.0 [place] [address] [place] [id number] [address] [place] [phone] Jan, Complicated urinary tract in fection N39.0 and Vaginal candidiasis B37.3 [place] [address] [facility] [id number] [address] [place] [id number] Dec, Dysuria R30.0 and Acute cyst itis with hematuria N30.01 [place] [address] [place] [id number] [address] [place] [phone] 10 Dec, 2016 Dysuria R30.0 [place] [address] [address] Dec, [facility] [address] [id number] [address] [place] [phone] Dec, Dysuria R30.0 and Acute cyst itis with hematuria N30.01 [facility] [address] [id number] [place] [address] [id number] Nov, 2016 Encounter for immunization Z 23 [facility] [address] [id number] [address] [place] [address] [id number] Sep, Dental examination Z01.20 [facility] [address] [id number] [address] [place] [phone] Aug, Visit for TB skin test Z11.1 [facility] [address] [id number] [address] [place] [address] [id number] Dec, Dental examination Z01.20 [facility] [address] [id number] [address] [place] [phone] Nov, Dysuria R30.0 [facility] [address] [id number] [address] [place] [address] [id number] May, Dental examination Z01.20 [facility] [address] [id number] [address] [place] [address] [id number] Nov, Dental examination V72.2 [facility] [address] [id number] [address] [place] [phone] Jun, [facility] [address] [id number] [address] [place] [phone] Jun, [facility] [address] [id number] [address] [place] [phone] May, [facility] [address] [id number] [address] [place] [phone] May, [facility] [address] [id number] [address] [place] [phone] Mar, [facility] [address] [id number] [address] [place] [phone] Mar, [facility] [address] [id number] [address] [place] [address], [place] [address] Mar, [facility] [address] [id number] [address] [place] [address], [place] [address] Mar, [facility] [address] [id number] [address] [place] [address], [place] [address] Mar, [facility] [address] [id number] [address] [place] [address], [place] [address] Feb, [facility] [address] [id number] [address] [place] [address], [place] [address] Feb, [facility] [address] [id number] [address] [place] [address], [place] [address] Feb, [facility] [address] [id number] [address] [place] [address], [place] [address] Feb, [facility] [address] [id number] [address] [place] [address], [place] [address] Feb, [facility] [address] [id number] [address] [place] [address], [place] [address] Feb, [facility] [address] [id number] [address] [place] [address], [place] [address] Jan, [facility] [address] [id number] [address] [place] [address], [place] [address] Jan, [facility] [address] [id number] [address] [place] [address], [place] [address] Jan, [facility] [address] [id number] [address] [place] [address], [place] [address] Jan, [facility] [address] [id number] [address] [place] [address], [place] [address] Jan, [facility] [address] [id number] [address] [place] [address], [place] [address] Jan, [facility] [address] [id number] [address] [place] [phone] Jan, [facility] [address] [facility] [id number] [address] [place] [phone] Dec, [facility] [address] [facility] [id number] [address] [place] [phone] Dec, [facility] [address] [facility] [id number] [address] [place] [phone] Dec, [facility] [address] [facility] [id number] [address] [place] [id number] Dec, [facility] [address] [facility] [id number] [address] [place] [phone] Feb, [facility] [address] [facility] [id number] [address] [place] [id number] Feb, IMMUNIZATIONS No Known Immunizations SOCIAL HISTORY Never Assessed REASON FOR VISIT Lab (walk-in) PLAN OF CARE VITAL SIGNS MEDICATIONS Unknown Medications RESULTS No Results PROCEDURES Procedure Date Ordered Result Body Site MICROSOMAL ANTIBODY May 27, 2017 ASSAY OF FREE THYROXINE May 27, 2017 ASSAY OF VITAMIN D May 27, 2017 INSTRUCTIONS MEDICATIONS ADMINISTERED No Known Medications [...]
--- OUTSIDE RECORDS SUMMARY | 2019-10-29 17:30 | XMS REPORT ---
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 Name Role Phone SHAQUILLE MATTHIEU Unavailable PROBLEMS Type Condition ICD9-CM Code [id number] Code Onset Dates Condition S tatus SNOMED Code Problem Postmenopausal vaginal bleeding N95.0 Active 29501434 Problem Overweight (BMI 25.0-29.9) E66.3 Act murphy 814641839 Problem Hyperthyroidism E05.90 Active 3448 6009 Problem Vitamin D deficiency E55.9 Active 78935671 Problem Chronic UTI N39.0 Active [id number] 6 ALLERGIES No Information ENCOUNTERS Encounter Location Date Diagnosis [place] [address] [place] [phone] Sep, [facility] [address] [facility] [id number] [address] [place] [address] Sep, Encounter for well woman exa m with routine gynecological exam Z01.419 ; Screening for STDs (sexually transmitted diseases) Z11.3 ; Overweight (BMI 25.0-29.9) E66.3 and Chronic UTI N39.0 [facility] [address] [facility] [id number] [address] [place] [address] Aug, Hyperthyroidism E05.90 ; Chr onic UTI N39.0 ; Vitamin D deficiency E55.9 ; Postmenopausal vaginal bleeding N95.0 and Overweight (BMI 25.0-29.9) E66.3 [facility] [address] [facility] [id number] [address] [place] [phone] July, [facility] [address] [facility] [id number] [address] [place] [phone] May, [facility] [address] [place] [id number] [address] [place] [address] May, Hyperthyroidism E05.90 [facility] [address] [facility] [id number] [address] [place] [address] May, Hyperthyroidism E05.90 [facility] [address] [facility] [id number] [address] [place] [address] May, Hyperthyroidism E05.90 [facility] [address] [facility] [id number] [id number] May, [facility] [address] [place] [id number] [place] [address] May, [facility] [address] [address] May, Hyperthyroidism E05.90 ; Keshia ast cancer screening by mammogram Z12.31 and Vitamin D deficiency E55.9 [facility] [address] [address] May, [facility] [address] [address] May, Acquired hypothyroidism E03. 9 ; Chronic UTI N39.0 ; Screening cholesterol level Z13.220 and Screening for diabetes mellitus Z13.1 [facility] [address] [address] Mar, Acquired hypothyroidism E03. 9 ; Chronic UTI N39.0 ; Screening cholesterol level Z13.220 and Screening for diabetes mellitus Z13.1 [facility] [address] [place] [id number] [address] [place] [address] Jan, Complicated urinary tract in fection N39.0 [place] [address] [address] Jan, Complicated urinary tract in fection N39.0 and Vaginal candidiasis B37.3 [place] [address] [address] Dec, Dysuria R30.0 and Acute cyst itis with hematuria N30.01 [facility] [address] [id number] [address] [place] [address] Dec, Dysuria R30.0 [facility] [address] [id number] [address] [place] [address] Dec, [facility] [address] [id number] [address] [place] [address] Dec, Dysuria R30.0 and Acute cyst itis with hematuria N30.01 [facility] [address] [id number] [place] [id number] Nov, Encounter for immunization Z 23 [facility] [address] [id number] [address] [place] [id number] Sep, Dental examination Z01.20 [facility] [address] [id number] [address] [place] [address] Aug, Visit for TB skin test Z11.1 [facility] [address] [id number] [address] [place] [address] [id number] Dec, Dental examination Z01.20 [facility] [address] [id number] [address] [place] [phone] 10 Nov, 2015 Dysuria R30.0 [facility] [address] [id number] [address] [place] [address] [id number] May, Dental examination Z01.20 [facility] [address] [id number] [address] [place] [address] [id number] Nov, Dental examination V72.2 [facility] [address] [id number] [address] [place] [address] Jun, [facility] [address] [id number] [address] [place] [phone] Jun, [facility] [address] [id number] [address] [place] [phone] May, [facility] [address] [id number] [address] [place] [address], [place] [address] May, [facility] [address] [id number] [address] [place] [address], [place] [address] Mar, [facility] [address] [id number] [address] [place] [address], [place] [address] Mar, [facility] [address] [id number] [address] [place] [address], [place] [address] Mar, [facility] [address] [id number] [address] [place] [address], [place] [address] Mar, [facility] [address] [id number] [address] [place] [address], [place] [address] Mar, [facility] [address] [id number] [address] [place] [address], [place] [address] Feb, [facility] [address] [id number] [address] [place] [address], [place] [address] Feb, [facility] [address] [id number] [address] [place] [address], [place] [address] Feb, [facility] [address] [id number] [address] [place] [address], [place] [address] Feb, [facility] [address] [id number] [address] [place] [address], [place] [address] Feb, [facility] [address] [id number] [address] [place] [address], [place] [address] Feb, [facility] [address] [id number] [address] [place] [address], [place] [address] Jan, [facility] [address] [id number] [address] [place] [address], [place] [address] Jan, [facility] [address] [id number] [address] [place] [address], [place] [address] Jan, [facility] [address] [id number] [address] [place] [address] Jan, [facility] [address] [id number] [address] [place] [address] Jan, [facility] [address] [id number] [address] [place] [phone] Jan, [facility] [address] [id number] [address] [place] [phone] Jan, [facility] [address] [id number] [address] [place] [address] Dec, [facility] [address] [id number] [address] [place] [phone] Dec, [facility] [address] [id number] [address] [place] [phone] Dec, [facility] [address] [id number] [address] [place] [address] Dec, [facility] [address] [id number] [address] [place] [phone] Feb, [facility] [address] [id number] [address] [place] [phone] Feb, IMMUNIZATIONS No Known Immunizations SOCIAL HISTORY [...]
--- OUTSIDE RECORDS SUMMARY | 2019-10-29 17:30 | XMS REPORT ---
Author Author Shruti CORBIN Organization [facility] Address [address] [place] [address] Care Team Providers Care Behaviour Support Teacher Name Role Phone SHAQUILLE MATTHIEU Unavailable PROBLEMS Type Condition ICD9-CM Code GJC34-HP Code Onset Dates Condition S tatus SNOMED Code Problem Postmenopausal vaginal bleeding N95.0 Active 14936549 Problem Overweight (BMI 25.0-29.9) E66.3 Act murphy 308192189 Problem Hyperthyroidism E05.90 Active 3448 6009 Problem Vitamin D deficiency E55.9 Active 78433188 Problem Chronic UTI N39.0 Active 10043992 6 ALLERGIES No Information ENCOUNTERS Encounter Location Date Diagnosis [facility] [id number] [place] [phone] Sep, [facility] [address] [facility] [id number] [address] [place] [address] Aug, Hyperthyroidism E05.90 ; Chr onic UTI N39.0 ; Vitamin D deficiency E55.9 ; Postmenopausal vaginal bleeding N95.0 and Overweight (BMI 25.0-29.9) E66.3 [facility] [address] [facility] [id number] [address] [place] [address] July, [facility] [address] [facility] [id number] [address] [place] [address] May, [facility] [address] [place] [id number] [address] [place] [address] May, Hyperthyroidism E05.90 [facility] [address] [place] [id number] [address] [place] [phone] May, Hyperthyroidism E05.90 [facility] [address] [place] [id number] [address] [place] [address] May, Hyperthyroidism E05.90 [facility] [address] [facility] [id number] [address] [place] [phone] May, [facility] [address] [facility] [id number] [address] [place] [phone] May, [facility] [address] [facility] [id number] [address] [place] [address] May, Hyperthyroidism E05.90 ; Keshia ast cancer screening by mammogram Z12.31 and Vitamin D deficiency E55.9 [facility] [address] [facility] [id number] [address] [place] [phone] May, [place] [address] [facility] [id number] [address] [place] [phone] May, Acquired hypothyroidism E03. 9 ; Chronic UTI N39.0 ; Screening cholesterol level Z13.220 and Screening for diabetes mellitus Z13.1 [place] [address] [address] [place] [id number] [address] [place] [phone] Mar, Acquired hypothyroidism E03. 9 ; Chronic UTI N39.0 ; Screening cholesterol level Z13.220 and Screening for diabetes mellitus Z13.1 [place] [address] [facility] [id number] [address] [place] [phone] Jan, Complicated urinary tract in fection N39.0 [place] [address] [address] [place] [id number] [address] [place] [phone] Jan, Complicated urinary tract in fection N39.0 and Vaginal candidiasis B37.3 [place] [address] [facility] [id number] [address] [place] [address] Dec, Dysuria R30.0 and Acute cyst itis with hematuria N30.01 [place] [address] [address] [place] [id number] [address] [place] [phone] 10 Dec, 2016 Dysuria R30.0 [place] [address] [address] Dec, [facility] [address] [id number] [address] [place] [address] Dec, Dysuria R30.0 and Acute cyst itis with hematuria N30.01 [facility] [address] [id number] [place] [address] [id number] Nov, 2016 Encounter for immunization Z 23 [facility] [address] [id number] [address] [place] [address] [id number] Sep, Dental examination Z01.20 [facility] [address] [id number] [address] [place] [phone] Aug, Visit for TB skin test Z11.1 [facility] [address] [id number] [address] [place] [address] [id number] Dec, Dental examination Z01.20 [facility] [address] [id number] [address] [place] [phone] Nov, Dysuria R30.0 [facility] [address] [id number] [address] [place] [address] [id number] May, Dental examination Z01.20 [facility] [address] [id number] [address] [place] [address] [id number] Nov, Dental examination V72.2 [facility] [address] [id number] [address] [place] [phone] Jun, [facility] [address] [id number] [address] [place] [phone] Jun, [facility] [address] [id number] [address] [place] [address] May, [facility] [address] [id number] [address] [place] [phone] May, [facility] [address] [id number] [address] [place] [phone] Mar, [facility] [address] [id number] [address] [place] [phone] Mar, [facility] [address] [id number] [address] [place] [address], [place] [address] Mar, [facility] [address] [id number] [address] [place] [address], [place] [address] Mar, [facility] [address] [id number] [address] [place] [address], [place] [address] Mar, [facility] [address] [id number] [address] [place] [address], [place] [address] Feb, [facility] [address] [id number] [address] [place] [address], [place] [address] Feb, [facility] [address] [id number] [address] [place] [address], [place] [address] Feb, [facility] [address] [id number] [address] [place] [address], [place] [address] Feb, [facility] [address] [id number] [address] [place] [address], [place] [address] Feb, [facility] [address] [id number] [address] [place] [address], [place] [address] Feb, [facility] [address] [id number] [address] [place] [address], [place] [address] Jan, [facility] [address] [id number] [address] [place] [address], [place] [address] Jan, [facility] [address] [id number] [address] [place] [address], [place] [address] Jan, [facility] [address] [id number] [address] [place] [address], [place] [address] Jan, [facility] [address] [id number] [address] [place] [address], [place] [address] Jan, [facility] [address] [id number] [address] [place] [address], [place] [address] Jan, [facility] [address] [id number] [address] [place] [address] Jan, [facility] [address] [id number] [address] [place] [address] Dec, [facility] [address] [id number] [address] [place] [address] Dec, [facility] [address] [facility] [id number] [address] [place] [address] Dec, [facility] [address] [facility] [id number] [address] [place] [address] Dec, [facility] [address] [facility] [id number] [address] [place] [id number] Feb, [facility] [address] [facility] [id number] [address] [place] [id number] Feb, IMMUNIZATIONS No Known Immunizations SOCIAL HISTORY [...]
--- OUTSIDE RECORDS SUMMARY | 2019-10-29 17:30 | XMS REPORT ---
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 Role Phone SHAQUILLE MATTHIEU Unavailable PROBLEMS Type Condition ICD9-CM Code [id number] Code Onset Dates Condition S tatus SNOMED Code Problem Postmenopausal vaginal bleeding N95.0 Active 90284515 Problem Overweight (BMI 25.0-29.9) E66.3 Act murphy 384566597 Problem Hyperthyroidism E05.90 Active 3448 6009 Problem Vitamin D deficiency E55.9 Active 32767545 Problem Chronic UTI N39.0 Active 37929410 6 ALLERGIES No Information ENCOUNTERS Encounter Location Date Diagnosis [facility] [id number] [place] [phone] Sep, [facility] [address] [facility] [id number] [address] [place] [phone] Aug, Hyperthyroidism E05.90 ; Chr onic UTI N39.0 ; Vitamin D deficiency E55.9 ; Postmenopausal vaginal bleeding N95.0 and Overweight (BMI 25.0-29.9) E66.3 [facility] [address] [facility] [id number] [address] [place] [phone] July, [facility] [address] [facility] [id number] [address] [place] [phone] May, [facility] [address] [place] [id number] [address] [place] [phone] May, Hyperthyroidism E05.90 [facility] [address] [place] [id number] [address] [place] [phone] May, Hyperthyroidism E05.90 [facility] [address] [place] [id number] [address] [place] [phone] May, Hyperthyroidism E05.90 [facility] [address] [facility] [id number] [address] [place] [phone] May, [facility] [address] [facility] [id number] [address] [place] [phone] May, [facility] [address] [facility] [id number] [address] [place] [phone] May, Hyperthyroidism E05.90 ; Keshia ast cancer screening by mammogram Z12.31 and Vitamin D deficiency E55.9 [facility] [address] [facility] [id number] [address] [place] [phone] May, [place] [address] [facility] [id number] [address] [place] [phone] May, Acquired hypothyroidism E03. 9 ; Chronic UTI N39.0 ; Screening cholesterol level Z13.220 and Screening for diabetes mellitus Z13.1 [place] [address] [place] [id number] [address] [place] [phone] Mar, Acquired hypothyroidism E03. 9 ; Chronic UTI N39.0 ; Screening cholesterol level Z13.220 and Screening for diabetes mellitus Z13.1 [place] [address] [facility] [id number] [address] [place] [phone] Jan, Complicated urinary tract in fection N39.0 [place] [address] [place] [id number] [address] [place] [phone] Jan, Complicated urinary tract in fection N39.0 and Vaginal candidiasis B37.3 [place] [address] [facility] [id number] [address] [place] [phone] Dec, Dysuria R30.0 and Acute cyst itis with hematuria N30.01 [place] [address] [place] [id number] [address] [place] [phone] 10 Dec, 2016 Dysuria R30.0 [place] [address] [phone] Dec, [facility] [address] [id number] [address] [place] [phone] Dec, Dysuria R30.0 and Acute cyst itis with hematuria N30.01 [facility] [address] [id number] [place] [id number] Nov, 2016 Encounter for immunization Z 23 [facility] [address] [id number] [address] [place] [id number] Sep, Dental examination Z01.20 [facility] [address] [id number] [address] [place] [phone] Aug, Visit for TB skin test Z11.1 [facility] [address] [id number] [address] [place] [address] [id number] Dec, Dental examination Z01.20 [facility] [address] [id number] [address] [place] [phone] Nov, Dysuria R30.0 [facility] [address] [id number] [address] [place] [address] [id number] May, Dental examination Z01.20 [facility] [address] [id number] [address] [place] [address] [phone] Nov, Dental examination V72.2 [facility] [address] [id number] [address] [place] [phone] Jun, [facility] [address] [id number] [address] [place] [phone] Jun, [facility] [address] [id number] [address] [place] [phone] May, [facility] [address] [id number] [address] [place] [phone] May, [facility] [address] [id number] [address] [place] [phone] Mar, [facility] [address] [id number] [address] [place] [phone] Mar, [facility] [address] [id number] [address] [place] [address], [place] [phone] Mar, [facility] [address] [id number] [address] [place] [address], [place] [phone] Mar, [facility] [address] [id number] [address] [place] [address], [place] [address] Mar, [facility] [address] [id number] [address] [place] [address], [place] [phone] Feb, [facility] [address] [id number] [address] [place] [address], [place] [phone] Feb, [facility] [address] [id number] [address] [place] [address], [place] [address] Feb, [facility] [address] [id number] [address] [place] [address], [place] [phone] Feb, [facility] [address] [id number] [address] [place] [address], [place] [phone] Feb, [facility] [address] [id number] [address] [place] [address], [place] [phone] Feb, [facility] [address] [id number] [address] [place] [address], [place] [phone] Jan, [facility] [address] [id number] [address] [place] [address], [place] [phone] Jan, [facility] [address] [id number] [address] [place] [address], [place] [phone] Jan, [facility] [address] [id number] [address] [place] [address], [place] [phone] Jan, [facility] [address] [id number] [address] [place] [address], [place] [phone] Jan, [facility] [address] [id number] [address] [place] [address], [place] [address] Jan, [facility] [address] [id number] [address] [place] [phone] Jan, [facility] [address] [id number] [address] [place] [phone] Dec, [facility] [address] [id number] [address] [place] [phone] Dec, [facility] [address] [facility] [id number] [address] [place] [phone] Dec, [facility] [address] [id number] [address] [place] [phone] Dec, [facility] [address] [facility] [id number] [address] [place] [phone] Feb, [facility] [address] [facility] [id number] [address] [place] [phone] Feb, IMMUNIZATIONS No Known Immunizations SOCIAL HISTORY Never Assessed REASON FOR VISIT PLAN OF CARE VITAL SIGNS MEDICATIONS Unknown Medications RESULTS Name Result Date Reference Range Mammogram, Bilateral Screening 2017-06-16 Ultrasound : Thyroid 2017-06-16 PROCEDURES No Known procedures INSTRUCTIONS MEDICATIONS ADMINISTERED [...]
--- OUTSIDE RECORDS SUMMARY | 2019-10-29 17:30 | XMS REPORT ---
Author Author Shruti BISHOP Organization [facility] Address [address] [place] [address] Care Team Providers Care Terra Cotta Setter Name Role Phone MARIA ELENA BISHOP Unavailable PROBLEMS Type Condition ICD9-CM Code [id number] Code Onset Dates Condition S tatus SNOMED Code Problem Postmenopausal vaginal bleeding N95.0 Active 58847795 Problem Overweight (BMI 25.0-29.9) E66.3 Act murphy 067626766 Problem Hyperthyroidism E05.90 Active 3448 6009 Problem Vitamin D deficiency E55.9 Active 30684767 Problem Chronic UTI N39.0 Active 84158148 6 ALLERGIES Substance Reaction Event Type Date Status Penicillins Unknown Non Drug Allergy Dec, Active ENCOUNTERS Encounter Location Date Diagnosis [place] [address] [place] [id number] [address] [place] [phone] Sep, [facility] [address] [place] [id number] [address] [place] [phone] Aug, Hyperthyroidism E05.90 ; Chr onic UTI N39.0 ; Vitamin D deficiency E55.9 ; Postmenopausal vaginal bleeding N95.0 and Overweight (BMI 25.0-29.9) E66.3 [facility] [address] [facility] [facility] [id number] [address] [place] [phone] July, [facility] [address] [place] [id number] [address] [place] [phone] May, [facility] [address] [place] [id number] [address] [place] [phone] May, Hyperthyroidism E05.90 [facility] [address] [place] [id number] [address] [place] [phone] May, Hyperthyroidism E05.90 [place] [address] [place] [id number] [address] [place] [phone] May, Hyperthyroidism E05.90 [facility] [address] [facility] [address] [facility] [id number] [address] [place] [phone] May, [facility] [address] [place] [id number] [address] [place] [phone] May, [facility] [address] [address] May, Hyperthyroidism E05.90 ; Keshia ast cancer screening by mammogram Z12.31 and Vitamin D deficiency E55.9 [place] [address] [facility] [facility] [id number] [phone] May, [place] [address] [place] [id number] [address] [place] [phone] May, Acquired hypothyroidism E03. 9 ; Chronic UTI N39.0 ; Screening cholesterol level Z13.220 and Screening for diabetes mellitus Z13.1 [place] [address] [place] [id number] [address] [place] [phone] Mar, Acquired hypothyroidism E03. 9 ; Chronic UTI N39.0 ; Screening cholesterol level Z13.220 and Screening for diabetes mellitus Z13.1 [place] [address] [place] [id number] [address] [place] [phone] Jan, Complicated urinary tract in fection N39.0 [place] [address] [place] [id number] [address] [place] [phone] Jan, Complicated urinary tract in fection N39.0 and Vaginal candidiasis B37.3 [place] [address] [place] [id number] [address] [place] [phone] Dec, Dysuria R30.0 and Acute cyst itis with hematuria N30.01 [place] [id number] [place] [phone] Dec, Dysuria R30.0 [place] [address] [place] [id number] [address] [place] [phone] Dec, [facility] [address] [id number] [address] [place] [phone] Dec, Dysuria R30.0 and Acute cyst itis with hematuria N30.01 [facility] [address] [id number] [place] [address] [id number] 27 Nov, 2016 Encounter for immunization Z 23 [facility] [address] [id number] [address] [place] [address] [id number] Sep, Dental examination Z01.20 [facility] [address] [id number] [address] [place] [phone] Aug, Visit for TB skin test Z11.1 [facility] [address] [id number] [address] [place] [address] [id number] Dec, Dental examination Z01.20 [facility] [address] [id number] [address] [place] [phone] Nov, Dysuria R30.0 [facility] [address] [id number] [address] [place] [id number] May, Dental examination Z01.20 [facility] [address] [id number] [address] [place] [address] [id number] Nov, Dental examination V72.2 [facility] [address] [id number] [address] [place] [phone] Jun, [facility] [address] [id number] [address] [place] [phone] Jun, [facility] [address] [id number] [address] [place] [phone] May, [facility] [address] [id number] [address] [place] [phone] May, [facility] [address] [id number] [address] [place] [phone] Mar, [facility] [address] [id number] [address] [place] [address], [place] [address] Mar, [facility] [address] [id number] [address] [place] [address], [place] [address] Mar, [facility] [address] [id number] [address] [place] [address], [place] [address] Mar, [facility] [address] [id number] [address] [place] [address], [place] [address] Mar, [facility] [address] [id number] [address] [place] [address], [place] [address] Feb, [facility] [address] [id number] [address] [place] [address], [place] [address] Feb, [facility] [address] [id number] [address] [place] [address], [place] [address] Feb, [facility] [address] [id number] [address] [place] [address], [place] [address] Feb, [facility] [address] [id number] [address] [place] [address], [place] [address] Feb, [facility] [address] [id number] [address] [place] [address], [place] [address] Feb, [facility] [address] [id number] [address] [place] [address], [place] [address] Jan, [facility] [address] [id number] [address] [place] [address], [place] [address] Jan, [facility] [address] [id number] [address] [place] [address], [place] [address] Jan, [facility] [address] [id number] [address] [place] [address], [place] [address] Jan, [facility] [address] [id number] [address] [place] [address], [place] [address] Jan, [facility] [address] [id number] [address] [place] [id number] Jan, [facility] [address] [id number] [address] [place], [place] [phone] Jan, [facility] [address] [id number] [address] [place], [place] [phone] Dec, [facility] [address] [id number] [address] [place] [address] Dec, [facility] [address] [id number] [address] [place] [id number] Dec, [facility] [address] [id number] [address] [place] [id number] Dec, [facility] [address] [id number] [address] [place] [address] Feb, [facility] [address] [facility] [facility] [id number] [address] [place], [place] [phone] Feb, IMMUNIZATIONS No Known Immunizations SOCIAL HISTORY Never Assessed REASON FOR VISIT UTI symptoms, Dysuria since yesterday. Beth. DANIEL Steele PLAN OF CARE Activity Details Follow Up Needs to establish with PCP Reason: VITAL SIGNS Height 67 in 2017-01-02 Weight 218 lbs 2017-01-02 Temperature 98.1 degrees Fahrenheit 2017-01-02 Heart Rate 80 bpm 2017-01-02 Respiratory Rate 16 2017-01-02 BMI 34.14 kg/m2 2017-01-02 Blood pressure systolic 110 mmHg 2017-01-02 Blood pressure diastolic 80 mmHg 2017-01-02 MEDICATIONS Medication Instructions Dosage Frequency Start Date End Date Duration S tatus Bactrim DS 800-160 MG Orally 2 times a day 1 tablet 12[address], 2016Dec, 07 days Active Trimethoprim 100 MG Orally Once a day 1 tablet 24h Not-Taking Levothyroxine Sodium 100 MCG TAKE ONE TABLET BY MOUTH DAILY 30 Not-Taking RESULTS Name Result Date Reference Range UA W/CULTURE IF INDICATED (IN HOUSE) 2017-01-02 Lot # [id number] Exp date 07/2017 Clarity clear Color yellow Odor no GLU neg SAMMI neg KET neg SG 1.010 BLO trace-intact pH 6.0 Protein neg URO 0.2 NIT neg HILLARY 1+ Lot # Exp date CULTURE, URINE 2017-01-02 Urine Culture, Routine Final report Result 1 Escherichia coli Antimicrobial Susceptibility PROCEDURES Procedure Date Ordered Result Body Site URINE CULTURE/COLONY COUNT Jan 02, 2017 INSTRUCTIONS MEDICATIONS ADMINISTERED No Known Medications [...]
--- OUTSIDE RECORDS SUMMARY | 2019-10-29 17:31 | XMS REPORT ---
Author Author Shruti BISHOP Organization [facility] Address [address] [place] [address] Care Team Providers Care Joy Loader Name Role Phone MARIA ELENA BISHOP Unavailable PROBLEMS Type Condition ICD9-CM Code QAC58-JO Code Onset Dates Condition S tatus SNOMED Code Problem Vitamin D deficiency E55.9 Active 49299786 Problem Chronic UTI N39.0 Active 06994999 6 Problem Hyperthyroidism E05.90 Active 3448 6009 ALLERGIES No Information ENCOUNTERS Encounter Location Date Diagnosis [facility] [address] [id number] May, [facility] [address] [place] [id number] [address] [place] [phone] May, Hyperthyroidism E05.90 [facility] [address] [facility] [id number] [address] [place] [id number] May, Hyperthyroidism E05.90 [facility] [address] [place] [id number] [address] [place] [id number] May, Hyperthyroidism E05.90 [facility] [address] [place] [id number] [address] [place] [id number] May, [facility] [address] [facility] [id number] [address] [place] [id number] May, [facility] [address] [place] [id number] [address] [place] [id number] May, Hyperthyroidism E05.90 ; Keshia ast cancer screening by mammogram Z12.31 and Vitamin D deficiency E55.9 [facility] [address] [place] [id number] [address] [place] [id number] May, [facility] [address] [facility] [id number] [address] [place] [id number] May, Acquired hypothyroidism E03. 9 ; Chronic UTI N39.0 ; Screening cholesterol level Z13.220 and Screening for diabetes mellitus Z13.1 [facility] [address] [facility] [id number] [address] [place] [id number] Mar, Acquired hypothyroidism E03. 9 ; Chronic UTI N39.0 ; Screening cholesterol level Z13.220 and Screening for diabetes mellitus Z13.1 [facility] [address] [facility] [id number] [address] [place] [id number] 17 Jan, 2017 Complicated urinary tract in fection N39.0 [facility] [address] [facility] [id number] [address] [place] [id number] Jan, Complicated urinary tract in fection N39.0 and Vaginal candidiasis B37.3 [place] [address] [facility] [id number] [address] [place] [id number] Dec, Dysuria R30.0 and Acute cyst itis with hematuria N30.01 [facility] [address] [facility] [id number] [address] [place] [id number] 10 Dec, 2016 Dysuria R30.0 [facility] [address] [facility] [id number] [address] [place] [id number] 09 Dec, 2016 [facility] [address] [facility] [id number] [address] [place] [id number] Dec, Dysuria R30.0 and Acute cyst itis with hematuria N30.01 [facility] [address] [facility] [id number] [place] [id number] 27 Nov, 2016 Encounter for immunization Z 23 [facility] [id number] [place] [id number] Sep, Dental examination Z01.20 [facility] [address] [facility] [id number] [address] [place] [phone] Aug, Visit for TB skin test Z11.1 [facility] [address] [place] [id number] [address] [place] [id number] Dec, Dental examination Z01.20 [facility] [address] [id number] [address] [place] [phone] Nov, Dysuria R30.0 [facility] [address] [id number] [address] [place] [id number] May, Dental examination Z01.20 [facility] [address] [id number] [address] [place] [id number] Nov, Dental examination V72.2 [facility] [address] [id number] [address] [place] [phone] Jun, [facility] [address] [id number] [address] [place] [phone] Jun, [facility] [address] [id number] [address] [place] [phone] May, [facility] [address] [id number] [address] [place] [phone] May, [facility] [address] [id number] [address] [place] [phone] Mar, [facility] [address] [id number] [address] [place] [phone] Mar, [facility] [address] [id number] [address] [place] [phone] Mar, [facility] [address] [id number] [address] [place] [id number] Mar, [facility] [address] [id number] [address] [place] [phone] Mar, [facility] [address] [id number] [address] [place] [id number] Feb, [facility] [address] [id number] [address] [place] [phone] Feb, [facility] [address] [id number] [address] [place] [address], [place] [id number] Feb, [facility] [address] [id number] [address] [place] [address], [place] [id number] Feb, [facility] [address] [id number] [address] [place] [address], [place] [id number] Feb, [facility] [address] [id number] [address] [place] [address], [place] [phone] Feb, [facility] [address] [id number] [address] [place] [address], [place] [id number] Jan, [facility] [address] [id number] [address] [place] [address], [place] [id number] Jan, [facility] [address] [id number] [address] [place] [address], [place] [id number] Jan, [facility] [address] [id number] [address] [place] [address], [place] [id number] Jan, [facility] [address] [id number] [address] [place] [address], [place] [id number] Jan, [facility] [address] [id number] [address] [place] [address], [place] [id number] Jan, [facility] [address] [id number] [address] [place] [address], [place] [id number] Jan, [facility] [address] [id number] [address] [place] [address], [place] [id number] Dec, [facility] [address] [id number] [address] [place] [address], [place] [id number] Dec, [facility] [address] [id number] [address] [place] [address], [place] [id number] Dec, [facility] [address] [id number] [address] [place] [address], [place] [id number] Dec, [facility] [address] [id number] [address] [place] [address], [place] [id number] Feb, [facility] [address] [facility] [id number] [address] [place] [address] Feb, IMMUNIZATIONS No Known Immunizations SOCIAL HISTORY [...]
--- OUTSIDE RECORDS SUMMARY | 2019-10-29 17:31 | XMS REPORT | Continuity of Care Document ---
Author Organization Unknown Address Unknown Phone Unavailable Allergies Active Description Code Type Severity Reaction Onset Reported/Identified Relationship to Patient Clinical Status Yes Nickel [id number] N/A N/A Yes penicillins NKMA N/A N/A Yes Penicillins Drug Allergy N/A N/A 01/04/2014 Yes Penicillins [id number] Drug Aller gy Unknown N/A 09/16/2019 Medications Medication Packaging Start Date St op Date Route Dosage Sig Lactated Ringers Injection(L actated Ringers Injection 1,000 mL) 1,000 mL 03/17/2017 03/17/2017 IV 10 mL/hr, IV ondansetron(Zofran) 2 mL 03/17/2017 03/17/2017 IV Push 4 mg 4 mg = 2 mL, IV Push, Once, PRN: Nausea or Vomiting HYDROmorphone(Dilaudid) 0.5 mL 03/17/2017 03/17/2017 IV Push 0.5 mg 0.5 mg = 0.5 mL, IV Push, q10min, PRN: Pain - Breakthrough HYDROmorphone(Dilaudid) 0.5 mL 03/17/2017 03/17/2017 IV Push 0.5 mg 0.5 mg = 0.5 mL, IV Push, q4hr, PRN: Pain - Breakthrough oxycodone-acetaminophen(Perc ocet 5/325 oral tablet) 1 tabs 03/17/2017 03/17/2017 Oral 1 tabs, Oral, q4hr, PRN: Catrina n Moderate (4-6) Problems Date Dx Coded Attending Type Code Diagnosis Diagnosed By 02/28/1124 BELA YEPEZ DO, Ot M21. 41 FLAT FOOT [PES PLANUS] (ACQUIRED), RIGHT 02/28/1124 BELA YEPEZ DO, Ot M67. 01 SHORT ACHILLES TENDON (ACQUIRED), RIGHT 02/28/1124 BELA YEPEZ DO, Ot Z98.890 OTHER SPECIFIED POSTPROCEDURAL STATES 02/27/1414 KARLI SCHMITT MD, Ot Z01.81 2 ENCOUNTER FOR PREPROCEDURAL LABORATORY E 02/27/1414 KARLI SCHMITT MD, Ot Z12.11 ENCOUNTER FOR SCREENING FOR MALIGNANT NE 02/27/1414 KARLI SCHMITT MD, Ot Z20.82 8 CONTACT W AND EXPOSURE TO OTH VIRAL COMM 03/08/2013 RAMOS DO, KHUSHBU K V04.81 FLU SHOT 03/08/2013 TYRELL JI NOEL R V04.81 FLU SHOT 03/08/2013 RAMOS DO, KHUSHBU K V04.81 FLU SHOT 03/08/2013 TYRELL JI, NOEL R V04.81 FLU SHOT 03/08/2013 DENEENBHAVIK Hopson APRN A V04.81 FLU SHOT 03/08/2013 RAMOS , KHUSHBU K V04.81 FLU SHOT 03/08/2013 ALAN BROTHERS APRNIDI A V04.81 FLU SHOT 03/08/2013 PALOMO CAMPBELL APRN S V04.81 FLU SHOT 03/08/2013 JASON SANTILLAN APRNINA R V04.81 FLU SHOT 01/04/2014 TYRELL JI NOEL R 244.9 HYPOTHYROIDISM 01/04/2014 RICHARD SALINAS, KHUSHBU K 244.9 HYPOTHYROIDISM 01/04/2014 TYRELL JI NOEL R 244.9 HYPOTHYROIDISM 01/04/2014 DENEEN JI BHAVIK A 24 4.9 HYPOTHYROIDISM 01/04/2014 MONIKA RAMOS DOA K 244.9 HYPOTHYROIDISM 01/04/2014 DENEEN JI BHAVIK A 24 4.9 HYPOTHYROIDISM 01/04/2014 PALOMO CAMPBLEL APRN S 244.9 HYPOTHYROIDISM 01/04/2014 TYRELL JI NOEL R 244.9 HYPOTHYROIDISM 01/25/2014 TYRELL JI NOEL R V74.1 TB SCREENING 01/25/2014 BHAVIK BROTHERS APRN A V7 4.1 TB SCREENING 01/25/2014 MONIKA RAMOS DOA K V74.1 TB SCREENING 01/25/2014 ALAN BROTHERS APRNIDI A V7 4.1 TB SCREENING 01/25/2014 PALOMO CAMPBELL APRN S V74.1 TB SCREENING 01/25/2014 NOEL SANTILLAN APRN R V74.1 TB SCREENING 02/11/2014 NOEL SANTILLAN APRN Ot V16.3 02/11/2014 NOEL SANTILLAN REPRODUCTION TECHNICIAN Ot V76.11 02/21/2014 DENEEN REPRODUCTION TECHNICIAN, BHAVIK A 59 9.0 URINARY TRACT INFECTION 02/21/2014 RAMOS DO, KHUSHBU K 599.0 URINARY TRACT INFECTION 02/21/2014 DENEEN REPRODUCTION TECHNICIAN, BHAVIK A 59 9.0 URINARY TRACT INFECTION 02/21/2014 SHANNAN REPRODUCTION TECHNICIAN, PALOMO S 599.0 URINARY TRACT INFECTION 02/21/2014 TYRELL REPRODUCTION TECHNICIAN, NOEL R 599.0 URINARY TRACT INFECTION 02/28/2014 RAMOS DO, KHUSHBU K 724.2 LUMBAGO 02/28/2014 DENEEN REPRODUCTION TECHNICIAN, BHAVIK A 72 4.2 LUMBAGO 02/28/2014 SHANNAN REPRODUCTION TECHNICIAN, PALOMO S 724.2 LUMBAGO 02/28/2014 TYRELL REPRODUCTION TECHNICIAN, NOEL R 724.2 LUMBAGO 04/14/2014 SHANNAN JI PALOMO S 719.46 PAIN- KNEE 04/14/2014 TYRELL REPRODUCTION TECHNICIAN, NOEL R 719.46 PAIN- KNEE 07/01/2014 TYRELL REPRODUCTION TECHNICIAN, NOEL R V70.0 ROUTINE GENERAL MEDICAL EXAMINATION AT [facility] 11/29/2014 NOEL SANTILLAN APRN Ot V16.3 11/29/2014 NOEL SANTILLAN REPRODUCTION TECHNICIAN Ot V76.11 12/15/2014 JAZ CARTAGENA, MICHELLE Aldrich Ot 599.0 04/04/2015 KRISTEN VÁZQUEZ Ot Z12.31 12/10/2015 MARCIA CARTAGENA, YESSICA Zavaleta Ot N39 .0 URINARY TRACT INFECTION, SITE NOT SPECIF 12/10/2015 YESSICA KENNEDY MD Ot R10.30 LOWER ABDOMINAL PAIN, UNSPECIFIED 03/21/2016 NOEL SANTILLAN APRN Ot V16.3 FAMILY HX-BREAST MALIG 03/21/2016 NOEL SANTILLAN APRN Ot V76.11 SCRN MAMMO-HIGH RISK PT, MALIGNANT NEOPL 03/21/2016 JAZ CARTAGENA, MICHELLE Aldrich Ot 599.0 URIN TRACT INFECTION NOS 03/21/2016 KRISTEN VÁZQUEZ RECYCLABLE MATERIALS COLLECTOR Ot Z12.31 ENCNTR SCREEN MAMMOGRAM FOR MALIGNANT NE 03/21/2016 AZIZA KRAUSMARISSA Hopson REPRODUCTION TECHNICIAN Ot E03.9 HYPOTHYROIDISM, UNSPECIFIED 03/21/2016 EFRAARMINDA REPRODUCTION TECHNICIAN Ot Z12.31 ENCNTR SCREEN MAMMOGRAM FOR MALIGNANT NE 03/22/2016 AZIZA KRAUSMARISSA Hopson REPRODUCTION TECHNICIAN Ot E03.9 HYPOTHYROIDISM, UNSPECIFIED 03/22/2016 AZIZA KRAUSMARISSA Hopson REPRODUCTION TECHNICIAN Ot Z12.31 ENCNTR SCREEN MAMMOGRAM FOR MALIGNANT NE 04/04/2016 EFRAARMINDA REPRODUCTION TECHNICIAN Ot E03.9 HYPOTHYROIDISM, UNSPECIFIED 04/04/2016 AZIZA KRAUSMARISSA Hopson REPRODUCTION TECHNICIAN Ot Z12.31 ENCNTR SCREEN MAMMOGRAM FOR MALIGNANT NE 04/15/2017 Yepez,, Bela Reason M21.41 Flat foot [pes planus] (acquired), right foot 04/15/2017 Yepez,, Bela Final M67. 01 Short Achilles tendon (acquired), right ankle 04/15/2017 Yepez,, Bela Final Z88. 0 Allergy status to penicillin 04/15/2017 Yepez,, Bela Final Z 91.048 Other nonmedicinal substance allergy status 06/03/2017 NOEL SANTILLAN REPRODUCTION TECHNICIAN Ot V16.3 FAMILY HX-BREAST MALIG 06/03/2017 NOEL SANTILLAN REPRODUCTION TECHNICIAN Ot V76.11 SCRN MAMMO-HIGH RISK PT, MALIGNANT NEOPL 06/03/2017 JAZ CARTAGENA, MICHELLE Aldrich Ot 599.0 URIN TRACT INFECTION NOS 06/03/2017 KRISTEN VÁZQUEZ RECYCLABLE MATERIALS COLLECTOR Ot Z12.31 ENCNTR SCREEN MAMMOGRAM FOR MALIGNANT NE 06/03/2017 EFRAARMINDA REPRODUCTION TECHNICIAN Ot E03.9 HYPOTHYROIDISM, UNSPECIFIED 06/03/2017 EFRAARMINDA REPRODUCTION TECHNICIAN Ot Z12.31 ENCNTR SCREEN MAMMOGRAM FOR MALIGNANT NE 06/17/2017 MATTHIEU CORBIN REPRODUCTION TECHNICIAN Ot E05.90 THYROTOXICOSIS, UNSP WITHOUT THYROTOXIC 06/17/2017 MATTHIEU CORBIN REPRODUCTION TECHNICIAN Ot Z12.31 ENCNTR SCREEN MAMMOGRAM FOR MALIGNANT NE 07/31/2017 YEPEZ DO, BELA R Ot M21. 41 FLAT FOOT [PES PLANUS] (ACQUIRED), RIGHT 07/31/2017 YEPEZ DO, BELA R Ot M67. 01 SHORT ACHILLES TENDON (ACQUIRED), RIGHT 07/31/2017 BELA YEPEZ DO R Ot Z98.890 OTHER SPECIFIED POSTPROCEDURAL STATES 08/29/2017 MATTHIEU CORBIN REPRODUCTION TECHNICIAN Ot E05.90 THYROTOXICOSIS, UNSP WITHOUT THYROTOXIC 08/29/2017 MATTHIEU CORBIN REPRODUCTION TECHNICIAN Ot Z12.31 ENCNTR SCREEN MAMMOGRAM FOR MALIGNANT NE 10/15/2017 MATTHIEU CORBIN R REPRODUCTION TECHNICIAN Ot E05.90 THYROTOXICOSIS, UNSP WITHOUT THYROTOXIC 10/15/2017 MATTHIEU CORBIN REPRODUCTION TECHNICIAN Ot Z12.31 ENCNTR SCREEN MAMMOGRAM FOR MALIGNANT NE 07/30/2018 TERRY RON RECYCLABLE MATERIALS COLLECTOR Ot Z12.31 ENCNTR SCREEN MAMMOGRAM FOR MALIGNANT NE 09/13/2019 JAZ CARTAGENA, MICHELLE Aldrich Ot 599.0 URIN TRACT INFECTION NOS 09/13/2019 KRISTEN VÁZQUEZ RECYCLABLE MATERIALS COLLECTOR Ot Z12.31 ENCNTR SCREEN MAMMOGRAM FOR MALIGNANT NE 09/13/2019 ARMINDA KRAUS REPRODUCTION TECHNICIAN Ot E03.9 HYPOTHYROIDISM, UNSPECIFIED 09/13/2019 ARMINDA KRAUS REPRODUCTION TECHNICIAN Ot Z12.31 ENCNTR SCREEN MAMMOGRAM FOR MALIGNANT NE 09/13/2019 MATTHIEU CORBIN REPRODUCTION TECHNICIAN Ot E05.90 THYROTOXICOSIS, UNSP WITHOUT THYROTOXIC 09/13/2019 MATTHIEU CORBIN R REPRODUCTION TECHNICIAN Ot Z12.31 ENCNTR SCREEN MAMMOGRAM FOR MALIGNANT NE 09/13/2019 TERRY RON RECYCLABLE MATERIALS COLLECTOR Ot Z12.31 ENCNTR SCREEN MAMMOGRAM FOR MALIGNANT NE 09/13/2019 TERRY RON RECYCLABLE MATERIALS COLLECTOR Ot Z12.31 ENCNTR SCREEN MAMMOGRAM FOR MALIGNANT NE 09/16/2019 Tong MA MD Ot E78.49 OTHER HYPERLIPIDEMIA 09/16/2019 ANIL CARTAGENA, Tong RETANA Ot R00 .2 PALPITATIONS 09/16/2019 Tong MA MD Ot R06.02 SHORTNESS OF BREATH 2019 Tong MA MD Ot E78.49 OTHER HYPERLIPIDEMIA 2019 ANIL CARTAGENA, Tong RETANA Ot R00 .2 PALPITATIONS 2019 Tong MA MD Ot R06.02 SHORTNESS OF BREATH 10/04/2019 Tong MA MD Ot E78.49 OTHER HYPERLIPIDEMIA 10/04/2019 ANIL CARTAGENA, Tong RETANA Ot R00 .2 PALPITATIONS 10/04/2019 ANIL CARTAGENA, Tong RETANA Ot R06.02 SHORTNESS OF BREATH 10/06/2019 ANIL CARTAGENA, Tong RETANA Ot E78.49 OTHER HYPERLIPIDEMIA 10/06/2019 ANIL CARTAGENA, Tong RETANA Ot R00 .2 PALPITATIONS 10/06/2019 ANIL CARTAGENA, Tong RETANA Ot R06.02 SHORTNESS OF BREATH 10/13/2019 JAZ CARTAGENA, MICHELLE Aldrich Ot 599.0 URIN TRACT INFECTION NOS 10/13/2019 KRISTEN VÁZQUEZ RECYCLABLE MATERIALS COLLECTOR Ot Z12.31 ENCNTR SCREEN MAMMOGRAM FOR MALIGNANT NE 10/13/2019 ARMINDA KRAUS REPRODUCTION TECHNICIAN Ot E03.9 HYPOTHYROIDISM, UNSPECIFIED 10/13/2019 ARMINDA KRAUS REPRODUCTION TECHNICIAN Ot Z12.31 ENCNTR SCREEN MAMMOGRAM FOR MALIGNANT NE 10/13/2019 MATTHIEU CORBIN REPRODUCTION TECHNICIAN Ot E05.90 THYROTOXICOSIS, UNSP WITHOUT THYROTOXIC 10/13/2019 MATTHIEU CORBIN REPRODUCTION TECHNICIAN Ot Z12.31 ENCNTR SCREEN MAMMOGRAM FOR MALIGNANT NE 10/13/2019 RONTERRY LUNDBERG L RECYCLABLE MATERIALS COLLECTOR Ot Z12.31 ENCNTR SCREEN MAMMOGRAM FOR MALIGNANT NE 10/13/2019 TOBY RONIA L RECYCLABLE MATERIALS COLLECTOR Ot Z12.31 ENCNTR SCREEN MAMMOGRAM FOR MALIGNANT NE 10/13/2019 Tong MA MD Ot E78.49 OTHER HYPERLIPIDEMIA 10/13/2019 Tong MA MD Ot R00 .2 PALPITATIONS 10/13/2019 Tong MA MD Ot R06.02 SHORTNESS OF BREATH 10/13/2019 Tong MA MD Ot E78.49 OTHER HYPERLIPIDEMIA 10/13/2019 ANIL CARTAGENA, Tong RETANA Ot R00 .2 PALPITATIONS 10/13/2019 Tong MA MD Ot R06.02 SHORTNESS OF BREATH 10/13/2019 Tong MA MD Ot E78.49 OTHER HYPERLIPIDEMIA 10/13/2019 ANIL CARTAGENA, Tong RETANA Ot R00 .2 PALPITATIONS 10/13/2019 Tong MA MD Ot R06.02 SHORTNESS OF BREATH 10/26/2019 KARLI SCHMITT MD Ot Z01.81 2 ENCOUNTER FOR PREPROCEDURAL LABORATORY E 10/26/2019 KARLI SCHMITT MD Ot Z12.11 ENCOUNTER FOR SCREENING FOR MALIGNANT NE 10/26/2019 KARLI SCHMITT MD Ot Z20.82 8 CONTACT W AND EXPOSURE TO OTH VIRAL COMM 10/29/2019 JAZ CARTAGENA, MICHELLE Aldrich Ot 599.0 URIN TRACT INFECTION NOS 10/29/2019 KRISTEN VÁZQUEZ RECYCLABLE MATERIALS COLLECTOR Ot Z12.31 ENCNTR SCREEN MAMMOGRAM FOR MALIGNANT NE 10/29/2019 ARMINDA KRAUS REPRODUCTION TECHNICIAN Ot E03.9 HYPOTHYROIDISM, UNSPECIFIED 10/29/2019 ARMINDA KRAUS REPRODUCTION TECHNICIAN Ot Z12.31 ENCNTR SCREEN MAMMOGRAM FOR MALIGNANT NE 10/29/2019 MATTHIEU CORBIN REPRODUCTION TECHNICIAN Ot E05.90 THYROTOXICOSIS, UNSP WITHOUT THYROTOXIC 10/29/2019 MATTHIEU CORBIN REPRODUCTION TECHNICIAN Ot Z12.31 ENCNTR SCREEN MAMMOGRAM FOR MALIGNANT NE 10/29/2019 RONTERRY LUNDBERG RECYCLABLE MATERIALS COLLECTOR Ot Z12.31 ENCNTR SCREEN MAMMOGRAM FOR MALIGNANT NE 10/29/2019 TERRY RON L RECYCLABLE MATERIALS COLLECTOR Ot Z12.31 ENCNTR SCREEN MAMMOGRAM FOR MALIGNANT NE 10/29/2019 Tong MA MD Ot E78.49 OTHER HYPERLIPIDEMIA 10/29/2019 ANIL CARTAGENA, Tong RETANA Ot R00 .2 PALPITATIONS 10/29/2019 Tong MA MD Ot R06.02 SHORTNESS OF BREATH 10/29/2019 Tong MA MD Ot E78.49 OTHER HYPERLIPIDEMIA 10/29/2019 Tong MA MD Ot R00 .2 PALPITATIONS 10/29/2019 Tong MA MD Ot R06.02 SHORTNESS OF BREATH Procedures Code Description [place] [address] MAMM OGRAM, SCREENING 01/04/2014 67682 TB T EST INTRADERMAL 01/25/2014 59943 TB T EST INTRADERMAL 01/25/2014 31388 ROUT INE VENIPUNCTURE 02/04/2014 35146 T4 FREE 02/04/2014 83408 T3 TOTAL 02/04/2014 66614 TSH 02/04/2014 65758 UA W / CULTURE IF INDICATED 02/21/2014 80399 CULT URE URINE 02/22/2014 97525 UA W / CULTURE IF INDICATED 02/28/2014 52526 UA W / CULTURE IF INDICATED 03/14/2014 04264 CULT URE URINE 03/16/2014 43558 CBC 07/01/2014 1670868 GF R CALC (RESULT ONLY) 07/01/2014 68144 CMP 07/01/2014 32189 LIPI D PANEL 07/01/2014 21022 T4 FREE 07/01/2014 13593 T3 TOTAL 07/01/2014 96086 TSH 07/01/2014 41393 Oste otomy; calcaneus (eg, Clemente or Chambers type procedure), with or withou 03/17/2017 Results Test Result Range Urine Culture, Routine - 12/09/15 10:21 Urine Culture, Routine Note Complete urinalysis with reflex to cultu re - 12/10/15 13:22 Urine color determination YELLOW NRG Urine clarity determination SLIGHTLY CLOUDY NRG Urine pH measurement by test strip 6 5-9 Specific gravity of urine by test strip 1.015 1.016-1.022 Urine protein assay by test strip, semi-quantitative 3+ NEGATIVE Urine glucose detection by automated test strip NE GATIVE NEGATIVE Erythrocytes detection in urine sediment by light micr oscopy 5+ NEGATIVE Urine ketones detection by automated test strip NE GATIVE NEGATIVE Urine nitrite detection by test strip POSITIVE NEGATIVE Urine total bilirubin detection by test strip 1+ NEGATIVE Urine urobilinogen measurement by automated test strip (mass/volume) 1 mg/dL NORMAL Urine leukocyte esterase detection by dipstick 3+ NEGATIVE Automated urine sediment erythrocyte cou nt by microscopy (number/high power field) [HPF] NRG Automated urine sediment leukocyte count by microscopy (number/high power field) TNTC NRG Bacteria detection in urine sediment by light microsco py FEW NRG Squamous epithelial cells detection in u rine sediment by light microscopy 2-5 NRG Crystals detection in urine sediment by light microsco py NONE NRG Casts detection in urine sediment by light microscopy NONE NRG Mucus detection in urine sediment by light microscopy NEGATIVE NRG Complete urinalysis with reflex to culture YES NRG Bacterial urine culture - 12/10/15 13:22 Bacterial urine culture [id number] NRG COLONY COUNT >100,000/ML NRG FTX;REPORTABLE SENSITIVITY REPORTED 12/12/15 8:45 NRG URINE CULTURE RESULTS <10,000/ML NRG Bacterial susceptibility panel - 6 13:22 Gentamicin susceptibility test by minimum inhibitory c oncentration <= NRG Trimethoprim/sulfamethoxazole susceptibi lity test by minimum inhibitoryconcentration >= NRG Ampicillin susceptibility test by minimum inhibitory c oncentration >= NRG Tobramycin susceptibility test by minimum inhibitory c oncentration <= NRG Cefazolin susceptibility test by minimum inhibitory co ncentration <= NRG Ceftriaxone susceptibility test by minimum inhibitory concentration <= NRG Ampicillin/sulbactam susceptibility test by minimum inhibitory concentration >= NRG Piperacillin/tazobactam susceptibility t est by minimum inhibitory concentration 16 NRG Ciprofloxacin susceptibility test by minimum inhibitor y concentration <= NRG Meropenem susceptibility test by minimum inhibitory co ncentration <= NRG Nitrofurantoin susceptibility test by mi nimum inhibitory concentration <= NRG Aztreonam susceptibility test by minimum inhibitory co ncentration <= NRG Extended spectrum beta lactamase (ESBL) producing bacteria susceptibility test by minimum inhibitory concentration - NRG Complete blood count (CBC) with automate d white blood cell (WBC) differential - 12/10/15 13:48 Blood leukocytes automated count (number/volume) 7.0 10*3/uL 4.3-11.0 Blood erythrocytes automated count (number/volume) 4.71 10*6/uL 4.35-5.85 Venous blood hemoglobin measurement (mass/volume) 13.1 g/dL 11.5-16.0 Blood hematocrit (volume fraction) 38 % 35-52 Automated erythrocyte mean corpuscular volume 81 [ foz_us] 80-99 Automated erythrocyte mean corpuscular h emoglobin (mass per erythrocyte) 28 pg 25-34 Automated erythrocyte mean corpuscular h emoglobin concentration measurement (mass/volume) 35 g/dL 32-36 Automated erythrocyte distribution width ratio 12. 2 % 10.0- 14.5 Automated blood platelet count (count/volume) 249 10*3/uL 130-400 Automated blood platelet mean volume measurement 9.9 [foz_us] 7.4-10.4 Automated blood neutrophils/100 leukocytes 68 % 42-75 Automated blood lymphocytes/100 leukocytes 24 % 12-44 Blood monocytes/100 leukocytes 7 % 0-12 Automated blood eosinophils/100 leukocytes 1 % 0-10 Automated blood basophils/100 leukocytes 0 % 0-10 Blood neutrophils automated count (number/volume) 4.7 10*3 1.8-7.8 Blood lymphocytes automated count (number/volume) 1.7 10*3 1.0-4.0 Blood monocytes automated count (number/volume) 0. 5 10*3 0.0-1.0 Automated eosinophil count 0.1 10*3/uL 0 .0-0.3 Automated blood basophil count (count/volume) 0.0 10*3/uL 0.0-0.1 Serum or plasma lithium measurement (mol es/volume) - 03/21/16 07:13 BNP level 10.1 pg/mL <100.0 Urine Culture, Routine - 01/02/17 13:13 Urine Culture, Routine Note CULTURE, URINE - 01/02/17 13:13 Urine Culture, Routine Final report NRG Result 1 Escherichia coli NRG Antimicrobial Susceptibility N RG CULTURE, URINE - 01/16/17 15:07 Urine Culture, Routine Final report NRG Result 1 Escherichia coli NRG Antimicrobial Susceptibility N RG Urine Culture, Routine - 01/16/17 15:07 Urine Culture, Routine Note CULTURE, URINE - 02/04/17 07:56 CULTURE, URINE, ROUTINE SEE NOTE NRG Glucose NPT - 03/17/17 05:41 Glucose NPT 101 mg/dL 70-100 INTERPRETATION - 05/01/17 12:17 INTERPRETATION NRG VITAMIN D, 25-H - 05/27/17 16:14 VITAMIN D,25-OH,TOTAL,IA 64 ng/mL 30-10 0 CULTURE, GENITAL - 10/24/17 11:52 CULTURE, GENITAL SEE NOTE NRG SUREPATH PAP RFX HPV mRNA E6/E7 - 11:52 CLINICAL INFORMATION: NRG LMP: 2013 NRG PREV. PAP: 2013 NRG PREV. BX: NO NRG SOURCE: NRG STATEMENT OF ADEQUACY: NRG INTERPRETATION/RESULT: NRG PRODUCTION CONSULTANT: NRMarion COMMENT NRG CULTURE, URINE - 01/01/19 15:50 CULTURE, URINE, ROUTINE SEE NOTE NRG Coronavirus SARS-CoV-2 SO 2018 - 0 08:00 Coronavirus Ab [Units/volume] in Serum NOT DETECTE D Not Detecte Encounters ACCT No. Visit Date/Time Discharge Status Pt. Type Provider Facility Loc./Unit Complaint [id number] 03/17/2017 05:04:00 017 13:30:00 DIS Outpatient Yepez Shawn [facility] [place] [facility] F3E short achilles tendo n, flat foot - right achilles lengthenin [id number] 03/18/2017 05:19:29 Document Registration [id number] 07/01/2014 07:47:00 07/01/2014 23:59: 59 CLS Outpatient NOEL SANTILLAN APRN [id number] 04/28/2014 16:47:00 04/28/2014 23:59: 59 CLS Outpatient NOEL SANTILLAN APRN [id number] 04/14/2014 17:28:00 04/14/2014 23:59: 59 CLS Outpatient PALOMO CAMPBELL APRN [id number] 03/14/2014 16:57:00 03/14/2014 23:59: 59 CLS Outpatient BHAVIK BROTHERS APRN [id number] 02/28/2014 17:13:00 02/28/2014 23:59: 59 CLS Outpatient KHUSHBU RAMOS DO [id number] 02/21/2014 16:45:00 02/21/2014 23:59: 59 CLS Outpatient BHAVIK BROTHERS APRN [id number] 02/04/2014 08:13:00 02/04/2014 23:59: 59 CLS Outpatient NOEL SANTILLAN APRN [id number] 01/25/2014 16:33:00 01/25/2014 23:59: 59 CLS Outpatient KHUSHBU RAMOS DO [id number] 01/04/2014 16:58:00 01/04/2014 23:59: 59 CLS Outpatient NOEL SANTILLAN APRN [id number] 03/08/2013 15:34:00 03/08/2013 23:59: 59 CLS Outpatient KHUSHBU RAMOS DO [id number] 01/04/2017 18:07:00 Document Registration [id number] 10/29/2019 12:00:00 13:20:00 DIS Outpatient KARLI SCHMITT MD [facility] ENDO SCREENING [id number] 10/26/2019 05:43:00 14:15:00 DIS Outpatient KARLI SCHMITT MD [facility] PREOP SCREENING [id number] 09/16/2019 07:06:00 23:59:59 CLS Outpatient Tong MA MD [facility] CARD PALPITATIONS [id number] 09/13/2019 08:50:00 23:59:59 CLS Outpatient Tong MA MD [facility] CARD PALPITATIONS [id number] 08/19/2019 14:20:00 23:59:59 CLS Outpatient TERRY RON RECYCLABLE MATERIALS COLLECTOR [facility] RAD SCREENING [id number] 07/17/2018 08:50:00 019 23:59:59 CLS Outpatient TERRY RON RECYCLABLE MATERIALS COLLECTOR [facility] RAD SCREENING [id number] 07/21/2017 16:00:00 018 11:25:00 DIS Outpatient BELA YEPEZ DO [facility] REHAB RIGHT SHORT ACHILLES TE NDON; FLAT FOOT RIGHT [id number] 06/16/2017 10:02:00 018 23:59:59 CLS Outpatient MATTHIEU CORBIN REPRODUCTION TECHNICIAN [facility] RAD Z12.31 SCREENIN G [id number] 05/30/2017 12:40:00 23:59:59 CLS Preadmit MATTHIEU CORBIN REPRODUCTION TECHNICIAN [facility] RAD E05.90 HYPERTHYROIDISM [id number] 03/21/2016 06:44:00 23:59:59 CLS Outpatient ARMINDA KRAUS REPRODUCTION TECHNICIAN [facility] RAD SCREENING;REDAL EDEMA [id number] 12/10/2015 13:18:00 016 14:35:00 DIS Emergency MARCIA CARTAGENA, YESSICA Zavaleta [facility] ER KIDNEY PAIN [id number] 03/20/2015 10:00:00 015 23:59:59 CLS Outpatient KRISTEN VÁZQUEZ [facility] RAD SCREENING [id number] 11/29/2014 08:14:00 015 23:59:59 CLS Outpatient MICHELLE SEBASTIAN MD [facility] RAD RECURRENT UTI [id number] 01/21/2014 11:18:00 014 23:59:59 CLS Outpatient NOEL SANTILLAN APRN [facility] RAD ROUTINE [id number] 04/16/2016 08:53:51 04/16/2016 23:59: 59 CLS Outpatient Abdirashid Rojas [id number] 04/08/2016 18:03:16 04/08/2016 23:59: 59 CLS Outpatient Abdirashid Rojas 09/201704/01/2017 14:02:07 04/01/2017 23:59: 59 CLS Outpatient Sugar Dalton [id number] 10/24/2017 10:20:00 10/24/2017 23:59:5 9 CLS Outpatient MATTHIEU CORBIN [facility] [id number] 01/01/2019 14:15:00 Document Registration [id number] 10/24/2017 10:20:00 Document Registration [id number] 05/27/2017 16:00:00 Document Registration [id number] 05/01/2017 12:20:00 Document Registration [id number] 02/03/2017 15:40:00 Document Registration [id number] 01/16/2017 14:40:00 Document Registration [id number] 01/02/2017 11:40:00 Document Registration [id number] 01/18/2017 16:06:00 Document Registration [id number] 12/13/2015 18:06:00 Document Registration
--- OUTSIDE RECORDS SUMMARY | 2019-10-29 17:31 | XMS REPORT ---
Author Author Shruti FRAGOSO [facility] Address [address] [place] [address] Phone Unavailable Care Team Providers Care Processes Chemical Design Engineer Name Role Phone JOSE FRAGOSO Unavailable Unavailable PROBLEMS Type Condition ICD9-CM Code UGG50-XT Code Onset Dates Condition S tatus SNOMED Code Problem Vitamin D deficiency E55.9 Active 18681367 Problem Chronic UTI N39.0 Active 92041890 6 Problem Hyperthyroidism E05.90 Active 3448 6009 ALLERGIES Substance Reaction Event Type Date Status Penicillins Unknown Non Drug Allergy Sep, Active ENCOUNTERS Encounter Location Date Diagnosis [facility] [address] [facility] [id number] [address] [place] [phone] May, [facility] [address] [facility] [id number] [address] [place] [phone] May, Hyperthyroidism E05.90 [facility] [address] [facility] [id number] [address] [place] [phone] May, Hyperthyroidism E05.90 [facility] [address] [facility] [id number] [address] [place] [phone] May, Hyperthyroidism E05.90 [facility] [address] [facility] [id number] [address] [place] [phone] May, [facility] [address] [facility] [id number] [address] [place] [phone] May, [facility] [address] [facility] [id number] [address] [place] [phone] May, Hyperthyroidism E05.90 ; Keshia ast cancer screening by mammogram Z12.31 and Vitamin D deficiency E55.9 [facility] [address] [facility] [id number] [address] [place] [phone] May, [place] [address] [facility] [id number] [address] [place] [phone] May, Acquired hypothyroidism E03. 9 ; Chronic UTI N39.0 ; Screening cholesterol level Z13.220 and Screening for diabetes mellitus Z13.1 [facility] [address] [facility] [id number] [address] [place] [phone] Mar, Acquired hypothyroidism E03. 9 ; Chronic UTI N39.0 ; Screening cholesterol level Z13.220 and Screening for diabetes mellitus Z13.1 [facility] [address] [id number] [address] [place] [phone] 17 Jan, 2017 Complicated urinary tract in fection N39.0 [facility] [address] [facility] [id number] [address] [place] [phone] Jan, Complicated urinary tract in fection N39.0 and Vaginal candidiasis B37.3 [facility] [address] [facility] [id number] [address] [place] [phone] Dec, Dysuria R30.0 and Acute cyst itis with hematuria N30.01 [facility] [address] [id number] [address] [place] [phone] 10 Dec, 2016 Dysuria R30.0 [facility] [address] [facility] [id number] [address] [place] [phone] 09 Dec, 2016 [facility] [address] [facility] [id number] [address] [place] [phone] 05 Dec, 2016 Dysuria R30.0 and Acute cyst itis with hematuria N30.01 [facility] [address] [id number] [place] [address] [id number] 27 Nov, 2016 Encounter for immunization Z 23 [facility] [address] [id number] [address] [place] [id number] Sep, Dental examination Z01.20 [facility] [address] [facility] [id number] [address] [place] [phone] 26 Aug, 2016 Visit for TB skin test Z11.1 [facility] [address] [id number] [address] [place] [address] [id number] Dec, Dental examination Z01.20 [facility] [address] [id number] [address] [place] [phone] 10 Nov, 2015 Dysuria R30.0 [facility] [address] [id number] [address] [place] [address] [id number] May, Dental examination Z01.20 [facility] [address] [id number] [address] [place] [address] [phone] Nov, Dental examination V72.2 [facility] [address] [id number] [address] [place] [phone] Jun, [facility] [address] [id number] [address] [place] [phone] Jun, [facility] [address] [id number] [address] [place] [phone] May, [facility] [address] [id number] [address] [place] [phone] May, [facility] [address] [id number] [address] [place] [phone] Mar, [facility] [address] [id number] [address] [place] [phone] Mar, [facility] [address] [id number] [address] [place] [phone] Mar, [facility] [address] [id number] [address] [place] [phone] Mar, [facility] [address] [id number] [address] [place] [phone] Mar, [facility] [address] [id number] [address] [place] [phone] Feb, [facility] [address] [id number] [address] [place] [phone] Feb, [facility] [address] [id number] [address] [place] [address], [place] [address] Feb, [facility] [address] [id number] [address] [place] [address], [place] [address] Feb, [facility] [address] [id number] [address] [place] [address], [place] [address] Feb, [facility] [address] [id number] [address] [place] [address], [place] [address] Feb, [facility] [address] [id number] [address] [place] [address], [place] [address] Jan, [facility] [address] [id number] [address] [place] [address], [place] [address] Jan, [facility] [address] [id number] [address] [place] [address], [place] [address] Jan, [facility] [address] [id number] [address] [place] [address], [place] [address] Jan, [facility] [address] [id number] [address] [place] [address], [place] [address] Jan, [facility] [address] [id number] [address] [place] [address], [place] [address] Jan, [facility] [address] [id number] [address] [place] [address], [place] [address] Jan, [facility] [address] [id number] [address] [place] [address], [place] [address] Dec, [facility] [address] [id number] [address] [place] [address], [place] [address] Dec, [facility] [address] [id number] [address] [place] [address], [place] [address] Dec, [facility] [address] [id number] [address] [place] [address], [place] [address] Dec, [facility] [address] [id number] [address] [place] [address], [place] [address] Feb, [facility] [address] [facility] [id number] [address] [place] [address] Feb, IMMUNIZATIONS No Known Immunizations SOCIAL HISTORY Never Assessed REASON FOR VISIT PROPHY PLAN OF CARE Activity Details Follow Up 6 Months Reason:recall VITAL SIGNS Blood pressure systolic 103 mmHg 2016-10-09 Blood pressure diastolic 72 mmHg 2016-10-09 MEDICATIONS Medication Instructions Dosage Frequency Start Date End Date Duration S tatus Levothyroxine Sodium 100 MCG TAKE ONE TABLET BY MOUTH DAILY 30 Active RESULTS No Results PROCEDURES Procedure Date Ordered Result Body Site PERIODIC ORAL EXAMINATION October 09, 2016 PROPHYLAXIS - ADULT October 09, 2016 INSTRUCTIONS MEDICATIONS ADMINISTERED No Known Medications MEDICAL [...]
--- OUTSIDE RECORDS SUMMARY | 2019-10-29 17:31 | XMS REPORT ---
Author Author Shruti RAMOS Organization [facility] Address [address] [place] [address] Care Team Providers Care Pre Sales Network Engineer Name Role Phone KHUSHBU RAMOS Unavailable PROBLEMS Type Condition ICD9-CM Code ZUX20-FA Code Onset Dates Condition S tatus SNOMED Code Problem Vitamin D deficiency E55.9 Active 23097229 Problem Chronic UTI N39.0 Active 33552357 6 Problem Hyperthyroidism E05.90 Active 3448 6009 ALLERGIES Substance Reaction Event Type Date Status Penicillins Unknown Non Drug Allergy Aug, Active ENCOUNTERS Encounter Location Date Diagnosis [facility] [address] [place] [id number] [address] [place] [phone] May, [facility] [address] [facility] [id number] [address] [place] [address] May, Hyperthyroidism E05.90 [facility] [address] [facility] [id number] [address] [place] [address] May, Hyperthyroidism E05.90 [facility] [address] [facility] [id number] [address] [place] [address] May, Hyperthyroidism E05.90 [facility] [address] [facility] [id number] [address] [place] [phone] May, [facility] [address] [facility] [id number] [address] [place] [address] May, [facility] [address] [place] [id number] [address] [place] [address] May, Hyperthyroidism E05.90 ; Keshia ast cancer screening by mammogram Z12.31 and Vitamin D deficiency E55.9 [facility] [address] [place] [id number] [address] [place] [address] May, [facility] [address] [facility] [id number] [address] [place] [address] May, Acquired hypothyroidism E03. 9 ; Chronic UTI N39.0 ; Screening cholesterol level Z13.220 and Screening for diabetes mellitus Z13.1 [facility] [address] [facility] [id number] [address] [place] [address] Mar, Acquired hypothyroidism E03. 9 ; Chronic UTI N39.0 ; Screening cholesterol level Z13.220 and Screening for diabetes mellitus Z13.1 [facility] [address] [facility] [id number] [address] [place] [phone] 17 Jan, 2017 Complicated urinary tract in fection N39.0 [facility] [address] [facility] [id number] [address] [place] [phone] Jan, Complicated urinary tract in fection N39.0 and Vaginal candidiasis B37.3 [facility] [address] [facility] [id number] [address] [place] [address] Dec, Dysuria R30.0 and Acute cyst itis with hematuria N30.01 [facility] [address] [facility] [id number] [address] [place] [phone] 10 Dec, 2016 Dysuria R30.0 [facility] [address] [facility] [id number] [address] [place] [phone] 09 Dec, 2016 [facility] [address] [facility] [id number] [address] [place] [phone] 05 Dec, 2016 Dysuria R30.0 and Acute cyst itis with hematuria N30.01 [facility] [place] [address] [facility] [id number] [place] [address] [id number] 27 Nov, 2016 Encounter for immunization Z 23 [facility] [address] [id number] [address] [place] [id number] Sep, Dental examination Z01.20 [facility] [address] [facility] [id number] [address] [place] [phone] Aug, Visit for TB skin test Z11.1 [facility] [address] [id number] [address] [place] [address] [id number] Dec, Dental examination Z01.20 [facility] [address] [id number] [address] [place] [phone] 10 Nov, 2015 Dysuria R30.0 [facility] [address] [id number] [address] [place] [address] [id number] May, Dental examination Z01.20 [facility] [address] [id number] [address] [place] [address] [id number] 17 Nov, 2014 Dental examination V72.2 [facility] [address] [id number] [address] [place] [phone] Jun, [facility] [address] [id number] [address] [place] [phone] Jun, [facility] [address] [id number] [address] [place] [phone] May, [facility] [address] [id number] [address] [place] [phone] May, [facility] [address] [id number] [address] [place] [phone] Mar, [facility] [address] [id number] [address] [place] [phone] Mar, [facility] [address] [id number] [address] [place] [phone] Mar, [facility] [address] [id number] [address] [place] [phone] Mar, [facility] [address] [id number] [address] [place] [phone] Mar, [facility] [address] [id number] [address] [place] [phone] Feb, [facility] [address] [id number] [address] [place] [phone] Feb, [facility] [address] [id number] [address] [place] [address], [place] [address] Feb, [facility] [address] [id number] [address] [place] [address], [place] [address] Feb, [facility] [address] [id number] [address] [place] [address], [place] [address] Feb, [facility] [address] [id number] [address] [place] [address], [place] [address] Feb, [facility] [address] [id number] [address] [place] [address], [place] [address] Jan, [facility] [address] [id number] [address] [place] [address], [place] [address] Jan, [facility] [address] [id number] [address] [place] [address], [place] [address] Jan, [facility] [address] [id number] [address] [place] [address], [place] [address] Jan, [facility] [address] [id number] [address] [place] [address], [place] [address] Jan, [facility] [address] [id number] [address] [place] [address], [place] [address] Jan, [facility] [address] [id number] [address] [place] [address], [place] [address] Jan, [facility] [address] [id number] [address] [place] [phone] Dec, [facility] [address] [id number] [address] [place] [address], [place] [address] Dec, [facility] [address] [id number] [address] [place] [address], [place] [address] Dec, [facility] [address] [id number] [address] [place] [phone] Dec, [facility] [address] [id number] [address] [address] Feb, [facility] [address] [facility] [id number] [address] [place] [phone] Feb, IMMUNIZATIONS No Known Immunizations SOCIAL HISTORY Never Assessed REASON FOR VISIT TB skin test-DANIEL Jang PLAN OF CARE Activity Details Follow Up 48-72 hours. 48-72 hours Lititz son: VITAL SIGNS MEDICATIONS Unknown Medications RESULTS No Results PROCEDURES Procedure Date Ordered Result Body Site TB INTRADERMAL 2016 N/A TB INTRADERMAL TEST 2016 TB INTRADERMAL TEST 2016 INSTRUCTIONS MEDICATIONS ADMINISTERED No Known Medications [...]
--- NOTE | 2019-11-01 14:41 | Anesthesia-General Post-Op ---
MAC Patient Condition Mental Status/LOC: Same as Preop Cardiovascular: Satisfactory Nausea/Vomiting: Absent Respiratory: Satisfactory Pain: Controlled Complications: Absent Post Op Complications Complications None Follow Up Care/Instructions Patient Instructions None needed. Anesthesiology Discharge Order Discharge Order Patient is doing well, no complaints, stable vital signs, no apparent adverse anesthesia problems. No complications reported per nursing. ANDREINA SORIA CRNA Nov 01, 2019 14:41
== END 2019-10-29 13:20 | disposition home or self-care (01) ==
LOC: ENDO 12:00
PROVIDERS: ATTEND Surgery
DX: Z12.11 Encounter for screening for malignant neoplasm of colon (principal); K64.0 First degree hemorrhoids; E03.9 Hypothyroidism, unspecified; E78.5 Hyperlipidemia, unspecified; E66.9 Obesity, unspecified; Z68.31 Body mass index [BMI] 31.0-31.9, adult; Z79.899 Other long term (current) drug therapy; Z79.890 Hormone replacement therapy

== ENCOUNTER → 2020-08-31 | Outpatient (CLI) | payer BC ==
[~2020-08-31] MED LIST changes: -LACTATED RINGERS 1,000 ML IV ONE; -LACTATED RINGERS 1,000 ML IV STA; -LIDOCAINE JELLY 2% 6 ML SYRINGE MM PRN; -MIDAZOLAM 2 MG/2 ML (VERSED) VIAL ONE; -PROPOFOL INJECTION 50 ML IV ONE; -proPOfol 200 MG/20 ML (DIPRIVAN) VIAL IV ONE
--- NOTE | 2020-08-31 14:17 | Diagnostic Imaging Report ---
Indication: Routine screening. Comparison is made with prior mammogram 08/19/2019 and 07/17/2018. 2-D and 3-D bilateral screening mammography was performed with CAD. Both breasts are heterogeneously dense, limiting the sensitivity of mammography. Benign nodules in the upper outer right breast appears stable. No new mass or malignant appearing microcalcifications are seen. Axillae are unremarkable. IMPRESSION: BI-RADS Category 2 No mammographic features suspicious for malignancy are identified. ACR BI-RADS Category 2: Benign findings. Result letter will be mailed to the patient. Note: At least 10% of breast cancer is not imaged by mammography. Dictated by: Dictated on workstation # [id number]
== END ==
LOC: RAD 10:30
PROVIDERS: ATTEND Nurse Practitioner Family
DX: Z12.31 Encounter for screening mammogram for malignant neoplasm of breast (principal)
CPT/HCPCS: 77063; 77067

== ENCOUNTER → 2021-09-03 | Outpatient (CLI) | payer BC ==
--- NOTE | 2021-09-03 13:39 | Diagnostic Imaging Report ---
INDICATION: Routine screening. COMPARISON: 08/31/2020 and 08/19/2019. TECHNIQUE: 2D and 3D bilateral screening mammography was performed with CAD. FINDINGS: Scattered fibroglandular densities are identified bilaterally. Benign intraparenchymal lymph nodes in the outer right breast are stable. No spiculated mass or malignant-appearing microcalcifications are seen. The axillae are unremarkable. IMPRESSION: No mammographic features suspicious for malignancy are identified. ACR BI-RADS Category 2: Benign findings. Result letter will be mailed to the patient. Note: At least 10% of breast cancer is not imaged by mammography. Dictated by: Dictated on workstation # [id number]
== END ==
LOC: RAD 10:30
PROVIDERS: ATTEND Nurse Practitioner Family
DX: Z12.31 Encounter for screening mammogram for malignant neoplasm of breast (principal)
CPT/HCPCS: 77063; 77067

== ENCOUNTER → 2022-06-27 | Outpatient (CLI) | payer BC ==
[~2022-06-27] MED LIST changes: +CATHETER FLUSH 10 ML SYR IVP PRN
--- NOTE | 2022-06-27 14:13 | Diagnostic Imaging Report ---
RADIOPHARMACEUTICAL: 5.2mCi Tc-99m Choletec IV INDICATION: Right upper quadrant pain. TECHNIQUE: Anterior dynamic imaging for 1 hour. Additional 60 minutes of imaging was performed after the patient drank an 8 ounce can of Ensure. FINDINGS: There is homogenous uptake throughout the liver. The gallbladder is visualized at 25minutes and small bowel at 15minutes. After ingesting an 8 ounce can of Ensure, there is abnormal contraction of the gallbladder with abnormally low calculated GBEF at 22%. IMPRESSION: 1. No evidence of acute cholecystitis or common duct obstruction. 2. Abnormally low GBEF of 22%. This can be seen with biliary dyskinesia versus chronic acalculous cholecystitis. Dictated by: Dictated on workstation # [id number]
== END ==
LOC: CARD 12:00
PROVIDERS: ATTEND Nurse Practitioner Family
DX: R10.11 Right upper quadrant pain (principal)
CPT/HCPCS: 78227; A9537

== ENCOUNTER 2022-07-02 10:36 | Outpatient (CLI) | payer BC ==
[~2022-07-02] VITALS: Ht 170.2 cm; Wt 97.7 kg
[~2022-07-02 10:36] MED LIST changes: -CATHETER FLUSH 10 ML SYR IVP PRN
[2022-07-03] MEDS ORDERED: HYDR-3817 PO ×2 (13:35)
== END 2022-07-02 13:36 | disposition home or self-care (01) ==
LOC: PREOP 10:36
PROVIDERS: ATTEND Surgery
DX: Z01.818 Encounter for other preprocedural examination (principal); K82.8 Other specified diseases of gallbladder

== ENCOUNTER 2022-07-03 11:27 | Day surgery (SDC) | payer BC ==
[2022-07-03] VITALS (10 sets, daily range): BP systolic 122–166; BP diastolic 70–93
[~2022-07-03] VITALS: Ht 170.2 cm; Wt 97.7 kg
[2022-07-03] MEDS: LACTATED RINGERS 1,000 ML IV PRN ×2 (12:09→14:18)
[2022-07-03] MEDS ORDERED: CLINDAMYCIN 600 MG/50 ML IVPB 50 ML IV ONE (12:15)
[2022-07-03] MEDS ORDERED: BUP/EPI 0.5% 1:200,000 (SENSORCAINE) 30 ML VIAL ONE (12:29)
[2022-07-03] MEDS ORDERED: LIDOCAINE PF 2% 5 ML (XYLOCAINE) VIAL ONE (12:50)
[2022-07-03] MEDS ORDERED: ONDANSETRON 4 MG/2 ML (SDV) Z0FRAN ONE ×2 (12:50→15:09)
[2022-07-03] MEDS ORDERED: fentaNYL INJ 100 MCG/2 ML AMP ONE ×2 (12:50→14:42)
[2022-07-03] MEDS ORDERED: SEVOFLURANE (ULTANE) 15 ML INHAL SOLN ONE ×2 (12:50→14:52)
[2022-07-03] MEDS ORDERED: proPOfol 200 MG/20 ML (DIPRIVAN) VIAL IV ONE (12:50)
[2022-07-03] MEDS ORDERED: MIDAZOLAM 2 MG/2 ML (VERSED) VIAL ONE (12:50)
--- NOTE | 2022-07-03 13:34 | Progress Note-Pre Operative ---
Pre-Operative Progress Note Date of Available H&P: Jul 03, 2022 Date H&P Reviewed: Jul 03, 2022 Time H&P Reviewed: 12:00 History & Physical: No changes noted Pre-Operative Diagnosis: sx biliary dyskinesia KARLI SCHMITT MD Jul 03, 2022 13:34
[2022-07-03] MEDS ORDERED: HYDR-3817 PO ×2 (13:35)
--- NOTE | 2022-07-03 13:35 | Discharge Inst-Surgical ---
D/C Lap Instructions-KESHIA New, Converted, or Re-Newed RX: RX on Chart Follow Up Appt in 2 weeks Activity as tolerated No driving for 24 hours No driving while on pain medications Incentive Spirometry use every 2 hours while awake Regular Diet Symptoms to Report: Fever over 101 degree F, Nausea/Vomiting Infection Signs and Symptoms to report: Increased redness, Foul odor of wound, Increased drainage Bathing instructions: May shower Operative Area Clean/Dry; Keep incision clean/dry If any problems/questions: Contact your physician or go to Emergency Room KARLI SCHMITT MD Jul 03, 2022 13:35
[2022-07-03] MEDS ORDERED: morphine INJ 10 MG/ML 1ML (SYR OR VIAL) IVP PRN ×2 (13:45)
[2022-07-03] MEDS ORDERED: ONDANSETRON 4 MG/2 ML (SDV) Z0FRAN IVP PRN ×2 (13:45→15:00)
[2022-07-03] MEDS ORDERED: oxyCODONE/APAP 5/325MG (PERCOCET 5) TABLET PO PRN (13:45)
[2022-07-03] MEDS ORDERED: ACETAMINOPHEN 325 MG TABLET PO PRN (13:45)
[2022-07-03] MEDS ORDERED: ROCURONIUM 50 MG/5 ML (ZEMURON) VIAL IV ONE (14:33)
[2022-07-03] MEDS ORDERED: NEOSTIGMINE (BLOXIVERZ ) 1 MG/1ML 10 ML VIAL ONE (14:36)
[2022-07-03] MEDS ORDERED: GLYCOPYRROLATE 0.2 MG/ML (ROBINUL) 2 ML VIAL ONE (14:36)
--- NOTE | 2022-07-03 14:49 | Progress Note-Post Operative ---
Post-Operative Progess Note Surgeon (s)/Elevator Installer (s) Surgeon KARLI SCHMITT MD Elevator Installer: aime king DIRECTOR WORKFORCE MANAGEMENT Pre-Operative Diagnosis sx biliary dyskinesia Post-Operative Diagnosis same Procedure & Operative Findings Date of Procedure 07/03/22 Procedure Performed/Findings laparoscopic cholecystectomy Anesthesia Type get Estimated Blood Loss Estimated blood loss (mL): minimal Specimens/Packing Specimens Removed gallbladder KARLI SCHMITT MD Jul 03, 2022 14:49
--- NOTE | 2022-07-03 14:50 | Anesthesia-General Post-Op ---
General Patient Condition Mental Status/LOC: Same as Preop Cardiovascular: Satisfactory Nausea/Vomiting: Absent Respiratory: Satisfactory Pain: Controlled Complications: Absent Post Op Complications Complications None Follow Up Care/Instructions Patient Instructions None needed. Anesthesia/Patient Condition Patient Condition Patient is doing well, no complaints, stable vital signs, no apparent adverse anesthesia problems. No complications reported per nursing. LIS CARRERO CRNA Jul 03, 2022 14:50
[2022-07-03] MEDS ORDERED: HYDROmorphone 2 MG/ML VIAL (DILAUDID) IV ONE (15:00)
[2022-07-03] MEDS ORDERED: HYDROmorphone 2 MG/ML VIAL (DILAUDID) ONE (15:09)
--- NOTE | 2022-07-03 21:46 | OPERATIVE REPORT ---
DATE OF SERVICE: 07/03/2022 ATTENDING PRIMARY CARE PHYSICIAN: Dr. Ross Roberts. PREOPERATIVE DIAGNOSIS: Symptomatic biliary dyskinesia. POSTOPERATIVE DIAGNOSIS: Symptomatic biliary dyskinesia. PROCEDURE: Laparoscopic cholecystectomy. SURGEON: Karli Schmitt MD ELECTRONIC TECHNOLOGIST: Garrett Velasquez APRN ANESTHESIA: General endotracheal. ESTIMATED BLOOD LOSS: Minimal. FINDINGS: Distended gallbladder, no gallbladder wall thickening, mild liver steatosis. DISPOSITION: The patient tolerated the procedure well. INDICATIONS: The patient is a 51-year-old female who has had intermittent episodes of nausea after meals as well as abdominal bloating. She states that this was initially mild. She states that in the past several months this has become much more frequent and usually after most meals, she will feel nausea as well as abdominal bloating and crampy right upper abdominal quadrant pain. She underwent workup, which first included an ultrasound, which did not show any gallstones; however, this was followed by HIDA scan, which did show a low ejection fraction 22% and upon administration of the Kinevac analogue, she was symptomatic with abdominal bloating, crampy right upper abdominal quadrant pain as well as nausea consistent with a biliary dyskinesia. DESCRIPTION OF PROCEDURE: The patient was brought to the operating room, laid supine on the table. After adequate IV pain, sedative medications and general endotracheal intubation, the abdomen was prepped and draped in standard surgical fashion. A 0.5% Marcaine with epinephrine was then used to anesthetize the overlying skin in the left upper abdominal quadrant and a transverse skin incision made using a #15 blade. An 0 silk suture was applied to the medial aspect of the incision for retraction and Veress needle inserted with a low opening pressure of 0 mmHg. The abdomen was then insufflated to 15 mmHg. The Veress needle removed and a 5 mm XL trocar placed followed by a 5 mm 45-degree angle laparoscope visualized the peritoneal cavity. A 4-quadrant abdominal exploration was performed. There was a distended gallbladder; however, no gallbladder wall thickening. There was a very mild or early liver steatosis. Under direct visualization, we then proceeded to place a supraumbilical 10 mm port after the skin and peritoneal lining were anesthetized using 0.5% Marcaine with epinephrine and a transverse skin incision made using a #15 blade. In a similar manner, a right upper abdominal quadrant 5 mm port was placed. The patient was then placed in reverse Trendelenburg position as well as plane right side up, left side down. The fundus of the gallbladder was then retracted anteriorly and superiorly. The hepatoduodenal ligament was then dissected using hook instrument as well as a [place] dissector. The entire critical view of safety was identified including the triangle of Calot as well as the cystic duct and artery as the only two structures going into the gallbladder as well as the cystic plate behind the proximal gallbladder. A timeout was then taken and the cystic duct and artery were then clipped proximally and distally and cut with EndoShears. The gallbladder was then dissected off of the liver bed using electrocautery on the hook instrument with visualization of good hemostasis as well as no leaking ducts of Luschka. The gallbladder was then removed through the 10 mm port site using an EndoCatch bag. The 10 mm port site fascia and peritoneum were then closed under direct visualization using a Mahamed-Maryanne device and 0 Vicryl suture. The abdomen was then desufflated and the remaining ports were removed. All skin incisions were closed using 4-0 Monocryl running subcuticular sutures. Wounds were then cleaned and covered with Dermabond. The patient tolerated the procedure well. We will start IV and oral pain medication as well as a clear liquid diet. Once she is tolerating clears, has good pain control with oral pain medications, ambulating well, we will discharge her home where she will be instructed to do no heavy lifting or exertion for the next 2 weeks and then after that slowly advance as tolerated until 6 weeks, then she does not have any restrictions. Job ID: [id number] DocumentID: [id number] Dictated Date: 07/03/2022 15:00:45 Hotel Reservationist Date: 07/03/2022 21:44:00 Dictated By: KARLI SCHMITT MD [facility]
== END 2022-07-03 16:50 | disposition home or self-care (01) ==
LOC: SDC 11:27
PROVIDERS: ATTEND Surgery
DX: K82.8 Other specified diseases of gallbladder (principal); K81.1 Chronic cholecystitis; K76.0 Fatty (change of) liver, not elsewhere classified; E66.9 Obesity, unspecified; Z68.33 Body mass index [BMI] 33.0-33.9, adult
CPT/HCPCS: 87081; 88304; 94664

== ENCOUNTER → 2022-09-13 | Outpatient (CLI) | payer BC ==
[~2022-09-13] MED LIST changes: +HYDR-3817 PO
--- NOTE | 2022-09-13 14:40 | Diagnostic Imaging Report ---
INDICATION: Routine screening. Comparison is made with prior mammogram from 09/03/2021 and 08/31/2020. 2-D and 3-D bilateral screening mammography was performed with CAD. Both breasts are heterogeneously dense, limiting the sensitivity of mammography. Intraparenchymal lymph nodes in the outer portions of both breasts are noted. No spiculated mass or malignant-appearing microcalcifications are seen. Axillae are unremarkable. IMPRESSION: No mammographic features suspicious for malignancy are identified. ACR BI-RADS Category 2: Benign findings. Result letter will be mailed to the patient. Note: At least 10% of breast cancer is not imaged by mammography. BI-RADS Category 2 Dictated by: Dictated on workstation # [id number]
== END ==
LOC: RAD 12:00
PROVIDERS: ATTEND Nurse Practitioner Family
DX: Z12.31 Encounter for screening mammogram for malignant neoplasm of breast (principal)
CPT/HCPCS: 77063; 77067